=== PATIENT | female | born 1945 | race Caucasian/White ===

== ENCOUNTER → 2017-04-23 13:51 | Outpatient (CLI) | payer MEDICARE, SELFPAY | PROVIDERS: Family Provider Internal Medicine; PCP Internal Medicine; Visit Provider Internal Medicine | DX: R55 Syncope and collapse (principal) | CPT/HCPCS: 93225; 93226 ==

== ENCOUNTER → 2017-04-30 13:46 | Outpatient (CLI) | payer MEDICARE, SELFPAY ==
--- NOTE | 2017-04-30 13:49 | CT_ITS ---
STUDY: CT BRAIN WITHOUT CONTRAST REASON FOR EXAM: Female, 71 years old. Near syncope, light headed after exertion x 2-3 months. Hx hypertension, skin cancer RADIATION DOSAGE (If Supplied By Facility): CTDIvol = ( 60.81 ) mGy, DLP = ( 998.67 ) mGycm TECHNIQUE: Transaxial CT imaging of the brain was performed without administration of intravenous contrast material. COMPARISON: None. FINDINGS: Normal soft tissue structures. Normal calvarium. There are calcifications around the carotid artery. These are noted in the cavernous carotid arteries. There is mild cerebral atrophy with widening of the extra-axial spaces and ventricular dilatation. There are areas of decreased attenuation within the white matter tracts of the supratentorial brain, consistent with microvascular disease changes. Normal basal ganglia and thalami. Normal brainstem. There is mild cerebellar atrophy. There is no intracranial hemorrhage. There are no findings of an acute ischemic infarction. Normal visualized paranasal sinuses. CT/Brain/Head without Contrast IMPRESSION: Chronic involutional changes of the brain. There are no acute findings. Electronically Signed: Juliano Riggs MD at 18:05 EST , Service support ,
== END ==
PROVIDERS: Family Provider Internal Medicine; PCP Internal Medicine; Visit Provider Internal Medicine
DX: R55 Syncope and collapse (principal)
CPT/HCPCS: 70450

== ENCOUNTER → 2017-05-07 12:55 | Outpatient (CLI) | payer MEDICARE, SELFPAY ==
--- NOTE | 2017-05-07 12:59 | CDU_ITS ---
Reason For Study: Near syncope Rt. Velocities/BP Lt. Velocities/BP Prox CCA 89.7/19.3 cm/sec. Prox CCA 89.1/16.4 cm/sec. Mid CCA 79.2/19.9 cm/sec. Mid CCA 75.0/14.1 cm/sec. Dist CCA 73.9/19.9 cm/sec. Dist CCA 69.2/18.8 cm/sec. Prox ICA 65.1/20.5 cm/sec. Prox ICA 70.9/23.5 cm/sec. Mid ICA 64.4/19.7 cm/sec. Mid ICA 57.2/20.1 cm/sec. Dist ICA 51.3/16.7 cm/sec. Dist ICA 69.4/20.1 cm/sec. Rt. ICA/CCA = .82. Lt. ICA/CCA = .95. Prox ECA 47.3/8.8 cm/sec. Prox ECA 62.4/11.4 cm/sec. Rt. Vert. 53.9/17.0 cm/sec. Lt. Vert. 51.0/17.0 cm/sec. Right Extracranial There is intimal thickening but no significant atherosclerotic plaque noted in the right common carotid artery. There is no significant atherosclerotic plaque noted in the right internal carotid artery. There is no significant atherosclerotic plaque noted in the right external carotid artery. Antegrade flow is noted in the right vertebral artery. Left Extracranial There is intimal thickening but no significant atherosclerotic plaque noted in the left common carotid artery. There is no significant atherosclerotic plaque noted in the left internal carotid artery. There is no significant atherosclerotic plaque noted in the left external carotid artery. Antegrade flow is noted in the left vertebral artery. Procedure Carotid Duplex [id number]. Exam performed in department. Interpretation Summary Mild (<50%) stenosis right extracranial internal carotid. Mild (<50%) stenosis left extracranial internal carotid. Flow within the vertebral arteries is antegrade bilaterally. Ordering Physician: Radha Dent Referring Physician: Radha Dent Performed By: Almaz Orr RVT
--- NOTE | 2017-05-07 12:59 | ECHOD_ITS ---
Reason For Study: syncope Procedure This was a 2D Doppler, Color Flow transthoracic echocardiogram. Exam performed in department. Left Ventricle Normal size and thickness. The estimated ejection fraction is 65 %. Stage 1 diastolic dysfunction. No regional wall motion abnormalities noted. Right Ventricle Normal size and thickness. Normal systolic function. Atria Normal left atrium. Normal right atrium. Normal atrial septum. Mitral Valve The mitral valve is structurally normal. No prolapse or stenosis seen. Tricuspid Valve Normal tricuspid valve. Trivial tricuspid valve insufficiency. Unable to estimate RV systolic pressure/pulmonary artery pressure due to technically difficult study. Aortic Valve Normal aortic valve. Trisinus/trileaflet aortic valve. Pulmonic Valve Normal pulmonic valve. Great Vessels Normal aortic root. Mild atherosclerosis of the aortic arch. Normal inferior vena cava. Inferior vena cava collapse with sniff. Pericardium/Pleural No pericardial effusion. MMode/2D Measurements & Calculations LVIDd: 4.6 cm IVSd: 0.88 cm Ao root diam: 2.9 cm LVIDs: 3.3 cm LVPWd: 1.1 cm LA dimension: 3.7 cm RVDd: 2.6 cm FS: 27.8 % LAV(MOD-bp): 48.9 ml LA A4 area: 16.2 cm2 RA A4 area: 9.5 cm2 LAV(MOD-bp) Indexed: 28.5 ml/m2 LAV(MOD-sp2): 51.4 ml LAV(MOD-sp4): 45.9 ml Doppler Measurements & Calculations MV E max marco a: 55.8 cm/sec Lat Peak E' Marco A: 6.3 cm/sec Med Peak E' Marco A: 6.3 cm/sec MV A max marco a: 102.3 cm/sec E/E' lat: 8.9 E/E' med: 8.9 MV E/A: 0.55 Ao V2 max: 108.8 cm/sec LV V1 max: 76.3 cm/sec PA V2 max: 95.0 cm/sec Ao max P.7 mmHg LV V1 max P.3 mmHg Interpretation Summary The estimated ejection fraction is 65 %. Stage 1 diastolic dysfunction. Unable to estimate RV systolic pressure/pulmonary artery pressure due to technically difficult study. Compared to echo report dated 12/28/2015, LV function has remained the same. RVSP found to be 46 mm Hg at that time. Ordering Physician: Radha Dent Referring Physician: Radha Dent Performed By: Johanne Cleveland, ARI, RVT
== END ==
PROVIDERS: Family Provider Internal Medicine; PCP Internal Medicine; Visit Provider Internal Medicine
DX: R55 Syncope and collapse (principal); R07.9 Chest pain, unspecified
CPT/HCPCS: 93306; 93880

== ENCOUNTER → 2017-05-09 06:38 | Outpatient (CLI) | payer MEDICARE, SELFPAY ==
--- NOTE | 2017-05-09 10:01 | STRESSREP ---
Stress Test Report Pharmacologic myocardial perfusion stress test. 71-year-old lady with a history of chest pain. Medications enalapril Synthroid furosemide. Stress protocol: Resting EKG demonstrates sinus rhythm with a rate of 86 bpm. Resting blood pressure is 128/70. 0.4 mg of regadenoson was infused per usual protocol followed by rapid intravenous saline flush injection. Continuous EKG monitoring was performed. Patient maintained sinus rhythm throughout the recording. The maximum heart rate attained was 96 bpm which was 64% maximum predicted heart rate maximum workload attained was [address] or T-wave changes were noted suggest abnormal flow reserve. Myocardial perfusion protocol. 14.1 mCi of technetium 99m sestamibi was injected at rest. 0.4 mg of regadenoson was infused per usual protocol. Peak infusion 43.4 mCi of technetium 99m sestamibi was injected stress images were obtained stress and rest images were reconstructed and compared in the short axis vertical long horizontal long axis. Gated images were also obtained. Perfusion SPECT analysis: Review of the stress images demonstrate normal uptake of tracer noted in all areas of the myocardium. The resting images similarly demonstrate normal uptake of tracer noted in all areas myocardium. No areas of reversibility are noted suggest ischemia. Gated SPECT analysis: The gated ejection fraction is 78%. Conclusion: Normal pharmacologic myocardial perfusion stress test. Preserved ejection fraction.
== END ==
PROVIDERS: Family Provider Internal Medicine; PCP Internal Medicine; Visit Provider Internal Medicine
DX: R07.9 Chest pain, unspecified (principal); R55 Syncope and collapse
CPT/HCPCS: 78452; 93017; A9500; A4216; J2785

== ENCOUNTER → 2017-05-13 14:15 | Outpatient (CLI) | payer MEDICARE, SELFPAY ==
--- NOTE | 2017-05-13 14:16 | HPBI_ITS ---
MAMMOGRAPHY - BILATERAL SCREENING REASON FOR EXAM: Female, 71 years old. Routine annual screening examination. PERTINENT HISTORY: Mother with breast cancer. Bilateral breast reduction surgery. TECHNIQUE: Digital bilateral breast jennie (3D mammographic acquisition) in the CC and MLO projections. 2-D mediolateral oblique (MLO) and craniocaudad (CC) views of both breasts were obtained. CAD: Full Field Digital Mammography with Computer Added Detection was performed. COMPARISON: Comparison is made with prior study dated April 25, 2015 and July 20, 2013. FINDINGS: Breast Composition: The breasts are almost entirely fatty. There are no dominant masses or suspicious calcifications. No other significant abnormalities are identified. There has been no significant change since the prior study. HPBI/SCREENING MAMM (CAD), BILAT IMPRESSION: Stable bilateral screening mammogram. Yearly follow-up mammogram recommended. (A) ASSESSMENT CATEGORY: BIRADS Category 1: Negative. A letter regarding these results will be sent to the patient by the facility within 30 days. Approximately 10% of breast cancers are not detected by mammography. A normal mammogram should not delay biopsy of a clinically suspicious abnormality. [id number] Electronically Signed: Danny Manrique MD at 15:12 EDT Tel [phone], Service support ,
== END ==
PROVIDERS: Family Provider Internal Medicine; PCP Internal Medicine; Visit Provider Internal Medicine
DX: Z12.31 Encounter for screening mammogram for malignant neoplasm of breast (principal)
CPT/HCPCS: 77063; 77067

== ENCOUNTER → 2018-05-26 13:55 | Outpatient (CLI) | payer MEDICARE, SELFPAY ==
[2018-02-04 13:37] VITALS: BMI 32.8
--- NOTE | 2018-05-26 13:58 | CDU_ITS ---
Reason For Study: Carotid stenosis Rt. Velocities/BP Lt. Velocities/BP Prox CCA 79.7/18.2 cm/sec. Prox CCA 99.1/19.3 cm/sec. Mid CCA 87.4/22.9 cm/sec. Mid CCA 78.0/17.0 cm/sec. Dist CCA 68.0/14.7 cm/sec. Dist CCA 83.8/21.7 cm/sec. Prox ICA 65.1/15.2 cm/sec. Prox ICA 66.3/15.8 cm/sec. Mid ICA 71.2/23.3 cm/sec. Mid ICA 56.1/19.6 cm/sec. Dist ICA 66.6/18.0 cm/sec. Dist ICA 67.7/23.2 cm/sec. Rt. ICA/CCA = .81. Lt. ICA/CCA = .87. Prox ECA 75.0/17.6 cm/sec. Prox ECA 53.0/10.5 cm/sec. Rt. Vert. 55.7/13.5 cm/sec. Lt. Vert. 54.5/17.0 cm/sec. Right Extracranial There is intimal thickening but no significant atherosclerotic plaque noted in the right common carotid artery. There is intimal thickening but no significant atherosclerotic plaque noted in the right internal carotid artery. There is intimal thickening but no significant atherosclerotic plaque noted in the right external carotid artery. Antegrade flow is noted in the right vertebral artery. Left Extracranial There is intimal thickening but no significant atherosclerotic plaque noted in the left common carotid artery. There is intimal thickening but no significant atherosclerotic plaque noted in the left internal carotid artery. There is no significant atherosclerotic plaque noted in the left external carotid artery. Antegrade flow is noted in the left vertebral artery. Procedure Carotid Duplex [id number]. Exam performed in department. Interpretation Summary Mild (<50%) stenosis right extracranial internal carotid. Mild (<50%) stenosis left extracranial internal carotid. Flow within the vertebral arteries is antegrade bilaterally. Ordering Physician: Sol Riojas Referring Physician: Sol Riojas Performed By: Almaz Orr RVT
--- NOTE | 2018-05-26 14:48 | BD_ITS ---
STUDY: DUAL ENERGY X-RAY ABSORPTIOMETRY / DXA REASON FOR EXAM: Female, 72 years old. The patient is postmenopausal. Loss of height. TECHNIQUE: Bone Mineral Density (BMD) measurements of lumbar spine and bilateral hips were obtained. COMPARISON: Comparison is made with prior study dated July 16, 2011. FINDINGS: Lumbar Spine (L1-L4): g/cm2 (1.185) / T-score (0.0) / Z-score (1.8) Findings are suggestive of normal bone density with a low fracture risk. Increased kyphosis. Left Femur Total: g/cm2 (0.929) / T-score (-0.6) / Z-score (1.0) Left Femoral Neck: g/cm2 (0.783) / T-score (-1.8) / Z-score (0.0) Right Femur Total: g/cm2 (0.920) / T-score (-0.7) / Z-score (1.0) Right Femoral Neck: g/cm2 (0.781) / T-score (-1.9) / Z-score (0.0) The T-Scores on the most recent prior examination were: Lumbar Spine (L1-L4): There has been worsening of bone density since the previous examination. Left Femur Total: which represents a worsening of 8.7%. Right Femur Total: which represents a worsening of 3.5%. BD/Dexa Bone Density Study IMPRESSION: The patient is considered osteopenic as outlined below according to World [place] Organization (WHO) criteria with a moderate fracture risk. There has been worsening of bone density since the previous examination. Reference Information: The T-score is the number of standard deviations above or below the standard which is normal for young adults at their peak bone mineral density. The World Health Organization (WHO) interprets the T-scores as follows: Above -1 Normal bone density Between -1 and -2.5 Osteopenia Equal to / or below -2.5 Osteoporosis As a practical clinical guideline, osteopenia may be graded as follows: Mild -1 through -1.5 Moderate -1.6 through -2.0 Severe -2.1 through -2.4 The Z-score is the number of standard deviations above or below age-matched controls. A Z-score of less than -1.5 would be considered abnormal. References: 1. NIH Osteoporosis and Related Bone Diseases http://www.osteo.org 2. International Society for Clinical Densitometry http://www.iscd.org 3. National Osteoporosis Foundation http://www.nof.org Electronically Signed: Danny Manrique, at 15:42 EDT , Service support ,
== END ==
PROVIDERS: Family Provider Internal Medicine; PCP Internal Medicine; Referring Provider Internal Medicine; Visit Provider Internal Medicine
DX: I65.23 Occlusion and stenosis of bilateral carotid arteries (principal); Z78.0 Asymptomatic menopausal state
CPT/HCPCS: 77080; 93880

== ENCOUNTER → 2018-06-11 11:56 | Outpatient (CLI) | payer MEDICARE, SELFPAY ==
[2018-02-04 13:37] VITALS: BMI 32.8
--- NOTE | 2018-06-11 11:58 | BI_ITS ---
MAMMOGRAPHY - BILATERAL SCREENING REASON FOR EXAM: Female, 73 years old. Routine annual screening examination. PERTINENT HISTORY: Mother with breast cancer. TECHNIQUE: Digital bilateral breast jennie (3D mammographic acquisition) in the CC and MLO projections. 2-D mediolateral oblique (MLO) and craniocaudad (CC) views of both breasts were obtained. CAD: Full Field Digital Mammography with Computer Added Detection was performed. COMPARISON: Comparison is made with prior study May 13, 2017 and April 25, 2015. FINDINGS: Breast Composition: The breasts are almost entirely fatty. There are no dominant masses or suspicious calcifications. No other significant abnormalities are identified. There has been no significant change since the prior study. BI/SCREENING MAMM (CAD), BILAT IMPRESSION: Stable bilateral screening mammogram. Yearly follow-up mammogram recommended. (A) ASSESSMENT CATEGORY: BIRADS Category 1: Negative. A letter regarding these results will be sent to the patient by the facility within 30 days. Approximately 10% of breast cancers are not detected by mammography. A normal mammogram should not delay biopsy of a clinically suspicious abnormality. [id number] Electronically Signed: Danny Manrique, at 14:34 EDT , Service support ,
== END ==
PROVIDERS: Family Provider Internal Medicine; PCP Internal Medicine; Referring Provider Internal Medicine; Visit Provider Internal Medicine
DX: Z12.31 Encounter for screening mammogram for malignant neoplasm of breast (principal)
CPT/HCPCS: 77063; 77067

== ENCOUNTER → 2018-07-01 15:47 | Outpatient (CLI) | payer MEDICARE, SELFPAY ==
[2018-02-04 13:37] VITALS: BMI 32.8
--- NOTE | 2018-07-01 15:52 | RAD_ITS ---
STUDY: X-RAY - SKULL REASON FOR EXAM: Female, 73 years old. Patient fell hitting head. Bruising. TECHNIQUE: 5 view(s) of the skull were obtained. COMPARISON: None. FINDINGS: There is no demonstrated soft tissue swelling. Normal osseous calvarium. There is no demonstrated calvarial fracture. Normal visualized facial bones. Normal visualized paranasal sinuses. RAD/Skull less than 4 Views IMPRESSION: Normal x-ray examination of the skull. Electronically Signed: Timmy Carmona MD at 16:20 EDT , Service support ,
== END ==
PROVIDERS: Family Provider Internal Medicine; PCP Internal Medicine; Referring Provider Internal Medicine; Visit Provider Internal Medicine
DX: S09.90XA Unspecified injury of head, initial encounter (principal)
CPT/HCPCS: 70250

== ENCOUNTER 2018-08-05 07:24 | Day surgery (SDC) | payer MEDICARE, SELFPAY ==
[2018-02-04 13:37] VITALS: BMI 32.8
[2018-08-05 08:01] VITALS: BP 137/95; PULSE 79; RESP 16; TEMP 36.7; O2SAT 98; BMI 30.7
--- NOTE | 2018-08-05 09:02 | HP.PCM_ITS ---
History of Present Illness Date of Admission: 08/05/18 The patient is a 73 year old F presents for screening colonoscopy. Her last colonoscopy was in 2006 in [facility] and was negative per her report Past Medical/Surgical History - Planned Operation Planned Operative Procedure/s: COLONOSCOPY Date of Operative Procedure: 08/05/18 Permit Signed: Yes S.O.S: No Is This Patient Having a Total Joint: No - Previous Hospitalizations/Surgeries HX Hospitalizations: No HX of Surgeries: HYSTERECTOMY. GALLBLADDER. SINUS SURGERY. L& R KNEE ARTHROSCOPY. SELENA BREAST REDUCTION. APPENDECTOMY. HERNIA Any Problems With Anesthesia: No You/Your Family Experience Fever (Hyperthermia) With Anes: No Cholinesterase deficiency: No - Cardiovascular Hx Chest Pain within Last 2 months: No Hx of Irregular Heartbeat and/or Afib: No Hx Heart Attack: No Hx Congestive Heart Failure: No Hx Rheumatic Fever: No Hx Hypertension: Yes - ON MEDS, CONTROLLED Hx Internal Defibrillator: No Hx Pacemaker: No Hx Cardiac Catheterization: Yes - 50% BLOCKAGE, [facility] 2013 What facility was last heart cath performed: [facility] Date of last Heart Cath: 2013 Hx Cardiac Surgery/Stents/Etc.: No Hx Stress Test: Yes - 05/18, ECHO 05/18 HX Edema: No Hx Pain in Legs when Walking/Leg Cramps: Yes - PAIN IN KNEES - Respiratory Chronic Cough: No HX of Shortness of Breath: No Hoarseness: No Hx Chronic Obstructive Pulmonary Disease (COPD): No Hx Asthma: No Hx Emphysema: Yes - HAS PULMONARY HYPERTENSION Hx Sleep Apnea: No Hx Oxygen Use at Home: No Hx Respiratory Tract Infection/Cold (presently): No Do You Snore Loudly (louder than talking or can be heard): No Do You Often Feel Tired/ Fatigued/ Sleepy Dring Daytime?: No Has Anyone Observed You Stop Breathing During Sleep?: No Result (for STOP score): Negative Hx Smoking: No Smoking Status: Never smoker - Gastrointestinal Hx Gastroesophageal Reflux: Yes Controlled With Meds: Yes Hx Gastrointestinal Disorders: No Hx Gastrointestinal Bleed: No Hx Ulcer: No Hx Hiatal Hernia: No Difficulty Chewing/Swallowing: No Recent Onset of Swallowing Problems: No Special diet followed at home: No Hx Unplanned Weight Loss of 20#: No HX Unplanned Weight Gain of 20#: No - Neurological Hx Seizures: No HX Syncope/Blackout Spells/Unconsciousness: No Hx CVA/Stroke: No Hx Transient Ischemic Attacks (TIA): No Hx Multiple Sclerosis: No Hx Parkinson's Disease: No Hx Head/Neck Injury: No Hx Headaches: Yes Hx Back Injury/Pain: Yes Recent Onset of Speech Difficulty: No Restless Legs: No Does patient have nerve stimulator: No - Blood Disorder Hx Leukemia: No Bleeding Tendencies: Yes Hx Deep Vein Thrombosis: No Hx High Cholesterol: Yes - HYPERLIPIDEMIA Blood Transmitted Disease: No Hx Hepatitis: No Hx Cirrhosis: No Hx Anemia: No Hx Blood Disorders: No - Reproduction : No Is Patient Lactating: No Hx Hysterectomy: Yes Hx Tubal Ligation: No Are You Post Menopause: No - Genitourinary Hx Renal Disease: No - Musculoskeletal Hx Arthritis: Yes Hx Rheumatoid Arthritis: No Hx Gout: No Recent Onset of an Orthopedic Problem: No - Endocrine Hx Diabetes: No Thyroid Disease: Yes - ON MED Hx Steroid Therapy: No - Psycho/Social Hx Substance Use: No Hx Alcohol Use: Yes - SOCIAL Hx Anxiety: Yes Hx Depression: Yes Mental Illness: No Hx Dementia: No - Miscellaneous Hx Cancer: Yes - SKIN Recent Exposure to Contagious Disease: No Active MRSA: No Hx of C-Diff: No Any Loose Teeth: No Allergies ezetimibe [From Vytorin] Allergy (Verified 08/03/18 11:49) Other pravastatin sodium [From Pravachol] Allergy (Verified 08/03/18 11:49) Other simvastatin [From Vytorin] Allergy (Verified 08/03/18 11:49) Other - Discharge Is Pt Admitted From a Group Home, or a Halfway: No Who Could Help: FRIEND After D/C, Where Do you Plan to Go: Return Home - From the PAT History Number of Risk Factors: 8 - Physical Exam General: Alert, Oriented x3 HEENT: Atraumatic, PERRLA, EOMI, Normocephalic Oral: Moist Mucosa Neck: Supple, No JVD Lungs: Clear to auscultation Cardiovascular: Regular rate, Regular Rhythm, No murmurs Abdomen: Bowel Sounds Present, Soft, Non Tender, Non-Distended Extremities: No clubbing, No cyanosis, No edema Skin: No rashes, No breakdown Musculoskeletal: No Tenderness to Palpation of Joints or Extremities Lymphatic: No Cervical, Supraclavicular, or Inguinal Adenopathy Neurological: Cranial nerves II-XII grossly intact Psych/Mental Status: Normal Affect, Appropriate Vital Signs Temp Pulse Resp BP Pulse Ox 98.1 F 79 16 137/95 H 98 08/05/18 08:01 08/05/18 08:01 08/05/18 08:01 08/05/18 08:01 08/05/18 08:01 Oxygen Delivery Method Room Air Weight: 157 lb 6.561 oz Body Mass Index (BMI) 30.7 Assessment/Plan All Active Problems (Last Reviewed 02/04/18 @ 13:55 by Beth Yost NP-C) History of lateral meniscus repair of right knee (Resolved) History of cholecystectomy (Resolved) History of hernia repair (Resolved) History of left knee surgery (Resolved) History of bilateral breast reduction surgery (Resolved) History of appendectomy (Resolved) History of hysterectomy (Resolved) Plan will be to perform a colonoscopy. Surgery Risks - Colonoscopy Risks Include but are not Limited To: Risks include but are not limited to: Bleeding, perforation requiring further surgery, inability to complete colonoscopy requiring barium enema.
[2018-08-05 09:25] VITALS: BP 109/71; BP 137/95; PULSE 73; RESP 18; TEMP 36.8; O2SAT 100
[2018-08-05 09:30] VITALS: BP 123/79; BP 137/95; PULSE 71; RESP 18; O2SAT 100
--- NOTE | 2018-08-05 09:30 | OP.ENDO_ITS ---
08/05/2018 Radha Dent [address] [place] [address] Re : Colonoscopy procedure for Kelly Arreola Dear Dr. Dent This procedure was performed on Sunday, August 05, 2018. My impressions and recommendations are as follows: Impressions : - Diverticulosis in the sigmoid colon. No specimens collected. - Non-bleeding external and internal hemorrhoids. - The examination was otherwise normal. Recommendations : - Discharge patient to home. - Resume previous diet. - Continue present medications. - Repeat colonoscopy in 10 years for screening purposes. - Return to referring physician in 1 week. My findings are described in the full procedure note, which is enclosed. If I can be of further assistance, please feel free to contact me at Doctor phone number(s): , Fax: [phone], Work: . Sincerely, MD Miguel A Padilla MD 08/05/2018 9:29:59 AM This report has been signed electronically.
[2018-08-05 09:35] VITALS: BP 133/68; BP 137/95; PULSE 71; RESP 18; O2SAT 99
[2018-08-05 09:40] VITALS: BP 133/75; BP 137/95; PULSE 69; RESP 18; TEMP 36.7; O2SAT 100
[2018-08-05 09:43] VITALS: BP 137/95
== END 2018-08-05 10:20 | disposition home or self-care (01) ==
LOC: EN 07:26 → AC 07:26
PROVIDERS: Family Provider Internal Medicine; PCP Internal Medicine; Referring Provider Internal Medicine; Visit Provider Surgery
PROC: 0DJD8ZZ Inspection of Lower Intestinal Tract, Via Natural or Artificial Opening Endoscopic (ICD-10-PCS; CPT 45378; principal; 2018-08-05 08:25)
DX: Z12.11 Encounter for screening for malignant neoplasm of colon (principal); K64.8 Other hemorrhoids; K64.4 Residual hemorrhoidal skin tags; K57.30 Diverticulosis of large intestine without perforation or abscess without bleeding; I10 Essential (primary) hypertension; I27.20 Pulmonary hypertension, unspecified; J43.9 Emphysema, unspecified; K21.9 Gastro-esophageal reflux disease without esophagitis; E78.5 Hyperlipidemia, unspecified
CPT/HCPCS: G0121; J7120

== ENCOUNTER → 2019-07-21 14:19 | Outpatient (CLI) | payer MEDICARE, SELFPAY ==
--- NOTE | 2019-07-21 14:42 | CT_ITS ---
STUDY: RIGHT KNEE CT SCAN REASON FOR EXAM: Female, 74 years old. Right knee varus deformity, surgical planning for Makoplasty. Prior meniscus repair. [facility] scanning protocol. RADIATION DOSAGE (If Supplied By Facility): CTDIvol = ( 30.70 ) mGy, DLP = ( 2053.81 ) mGycm. Individualized dose optimization techniques were used for this CT.? TECHNIQUE: Axial multidetector CT scan of the right knee. Coronal and sagittal reformatted images. [facility] protocol with additional imaging of the right hip and ankle. COMPARISON: X-ray dated June 09, 2015 and September 12, 2014. FINDINGS: KNEE: Moderate lateral compartment osteoarthritis. Mild medial compartment osteoarthritis. Mild/moderate patellofemoral osteoarthritis. Multiple osteophytes. Normal proximal tibiofibular articulation. No acute fracture. No dislocation. No bone destruction. Moderate volume joint effusion. Tiny popliteal cyst. Mild soft tissue swelling. HIP: Mild hip osteoporosis. Spurring at the greater trochanter. Moderate pubic symphysis arthrosis. No acute fracture. No dislocation. No bone destruction. Hernia mesh repair. Visualized intra-abdominal/pelvic contents within normal limits. Hysterectomy. ANKLE: Plantar spur. Achilles enthesophyte. Minimal tibiotalar joint arthrosis. Normal subtalar joint. Normal talonavicular joint. Normal calcaneocuboid joint. Normal navicular cuneiform joints. No acute fracture. No dislocation. No bone destruction. CT/Extremity Lower without Contra IMPRESSION: Mild/moderate tricompartmental right knee osteoarthritis Right knee moderate joint effusion, tiny popliteal cyst and mild swelling Mild right hip osteoarthritis Achilles enthesophyte and plantar spur with minimal tibiotalar arthrosis Electronically Signed: Juaquin Sampson DO at 8:29 EDT Tel , Service support ,
== END ==
PROVIDERS: PCP Internal Medicine; Referring Provider Specialist; Visit Provider Specialist
DX: M21.161 Varus deformity, not elsewhere classified, right knee (principal)
CPT/HCPCS: 73700; 93005

== ENCOUNTER → 2019-07-29 16:30 | Outpatient (CLI) | payer MEDICARE, SELFPAY ==
--- NOTE | 2019-07-21 11:47 | PCM.HP.BLA ---
History and Physical History and Physical [facility] Patient Name: Kelly Arreola : 1945 From: AYAAN FRANKEL PA-C DATE OF SURGERY: 08/04/2019 SCHEDULED PROCEDURE: right total knee arthroplasty HISTORY OF PRESENT ILLNESS: Preoperative history and physical exam was performed on July 21, 2019. This is a 74-year-old female who has been having ongoing pain in her right knee for several years. Patient states her pain is intermittent and aching. She is complaining of pain over the lateral aspect of the right knee. Patient has had multiple Euflexxa injections in the past. Patient does have start up pain. Pain is increased with going up and down stairs. Pain occasionally wakes her at night. She has been using meloxicam with temporary relief. She has tried rest, elevation, cortisone injection, and gel injection with only temporary relief. There's been no trauma or injury. She has had previous surgery on the right knee for a torn meniscus approximately 3 years ago. After failing conservative measures and discussing treatment options with Dr. Barrie You the patient does wish to proceed with a right total knee arthroplasty. Patient currently denies any chest pain, shortness of breath, fevers chills, or Infections. She has medical history pertinent for hypertension, thyroid disease, pulmonary hypertension, gastroesophageal reflux disease, COPD. She has had a previous heart In 2015 which was normal per patient and never had to follow back with the application software engineer. We are obtaining surgical clearance from patient's primary care physician Dr. Dent. REVIEW OF SYSTEMS: ROS: Const: Reports anxiety and hard of hearing, but denies anorexia, change in appetite, fever, vision problems and weight change. CV: Denies chest pain, heart murmur, irregular heartbeat and peripheral vascular disease. Resp: Reports pneumonia, but denies asthma, cough, sleep apnea, SOB, tuberculosis and wheezing. GI: Denies constipation, diarrhea, difficulty swallowing, heartburn, bloody stools and vomiting. : Urinary: denies incontinence. Musculo: Denies leg swelling, limp, trouble walking and weakness. Skin: Reports history of shingles, but denies Raynaud's and tattoo. Neuro: Denies ambulatory dysfunction, dizziness, numbness/tingling and tremor. Psych: Reports anxiety and depression, but denies insomnia, mental illness and stress. Brigido/Lymph: Reports bleeding/bruising tendency and past transfusion, but denies anemia. Reviewed, no changes. PAST MEDICAL HISTORY: Advance Care Plan: Other Directive, POA Effective Date: 09/20/2015 Other Directive, LIVING WILL Effective Date: 09/20/2015 PMH: Medical Problems: Arthritis, High Blood Pressure, Thyroid Disease, Hypercholesterolemia, Pulmonary Hypertension, GERD, Emphysema/COPD Accidents: Fracture - (1979) LT FOOT LT FOOT-2015 Surgical Hx: Gallbladder - (03/31/2014) Hernia Repair Hysterectomy - (1992) Tubal Ligation - (1974) Knee Arthroscopy LT - (2007) Heart Cath - (2014) RT Knee Arthroscopy - (11/24/2014) JW @ [facility] Anesthesia Complications: None Assistive Devices: Glasses - Reading & driving, Hearing Aid Reviewed and updated. SOCIAL HISTORY: SH: Marital: .Occupation: Not Currently Working.Work Status: Retired.Hand Dominance: Right-handed. Personal Habits: Smoking: Patient has never smoked.Cigarette Use: Never Smoked Cigarettes.Alcohol: Weekly use.Drug Use: Denies Use.Enjoy Exercising: Exercises 1-3 X/Week. Reviewed, no changes. VITALS: Ht: 60 Wt: 153lb Wt k.401 BMI: 29.9 BP: 156/98 Pulse: 86 Resp: 12 T: 97.5 T: 36.4C ALLERGIES: Bactrim MEDICATIONS: Meloxicam 15 mg take 1 tablet by mouth once daily, Enalapril Maleate 20 mg bid, Furosemide 40 mg/4ml daily, Montelukast Sodium 10 mg 1 by mouth every day, Synthroid 75 mcg daily, Buspirone HCL 7.5 mg 1 tab PO tid, Vitamin D3 500 Units 1 tab PO daily, Vitamin B-12 1000mcg 1 tab PO daily, Esomeprazole Magnesium 40 mg one PO daily, Duloxetine HCL 60 mg 1 by mouth every day, Singulair 10 mg 1 by mouth every day, Nasonex 50 mcg/Act spray in each nostril prn, Vitamin C 1 po qd PRE-OP EXAM: General appearance:NORMAL Other: Eyes: Conjunctivae and lids: NORMAL Pupils: ERR Ears, Nose, Mouth, and Throat: NORMAL Other: Inspection of lips, teeth and gums: NORMAL Other: Neck: Examination of neck: no masses noted. Respiratory: Assessment of respiratory effort: NORMAL Other: Auscultation of lungs: clear to auscultation no wheezes, rhonchi or rales. Cardiovascular: Auscultation of heart: regular rate and rhythm, no murmurs, gallops or rubs. Exam of carotid arteries: NORMAL Other: Gastrointestinal: Exam of abdomen: soft, nontender, nondistended bowel sounds present. PHYSICAL EXAMINATION: Patient walks with an antalgic gait. Right knee is cool to touch without erythema or signs of infection. He has tenderness to palpation over the right knee at the lateral joint line. Patient has valgus deformity which is correctable on exam. Range of motion right knee: 0 extension 125 flexion with increased pain. IMAGING STUDIES: X-rays of the right knee reveal valgus alignment with lateral joint space narrowing, subchondral sclerosis, osteophyte formation consistent with severe stage IV tricompartmental osteoarthritis. IMPRESSION: 1. Severe right knee tricompartmental osteoarthritis 2. Hypertension 3. Thyroid disease 4. Hypercholesterolemia 5. Coronary hypertension 6. Gastroesophageal reflux disease 7. Emphysema/COPD 8. History of heart 2015 PLAN: Dr. Barrie You did discuss and review with the patient all treatment options including surgical versus nonsurgical options. Patient does wish to proceed with the above-stated procedure. Potential risks, benefits, and complications of the procedure were discussed in detail including but not limited to , infection, nerve and blood vessel damage, persistent pain, numbness, tingling, paresthesias, blood clot, pulmonary embolism, and requirement for possible further surgery. The patient expressed full understanding and has no further questions for the doctor. Patient does agree to proceed with the above-stated procedure and has signed the surgery consent form. We discussed the current risks associated with COVID 19. This does include the risk of exposure while in the hospital. Patient was reassured local hospitals have low infection rates and are taking all necessary precautions to avoid exposure to patients. In addition, we discussed strategies that can be used to help limit exposure including those that limit the patient's time in the hospital. Also using strategies to limit the patient's need for continued inpatient services after being discharged from the hospital. Patient was notified that we will need to comply with any screening or testing the hospital wishes to perform or that surgery may be delayed for any positive results. This dictation was created using voice recognition software. Phonetic and/or grammatical errors may exist. ___ I have re-examined the patient. There are no clinical changes since date of exam. ___ See progress notes for changes. ___ Dictated on admission Date: Time: Signature:
--- NOTE | 2019-07-21 14:29 | EKG12_ITS ---
Test Reason : PRE OP Blood Pressure : / mmHG Vent. Rate : 090 BPM Atrial Rate : 090 BPM P-R Int : 166 ms QRS Dur : 080 ms QT Int : 362 ms P-R-T Axes : 025 -01 016 degrees QTc Int : 442 ms Normal sinus rhythm Normal ECG Confirmed by BREE LINDSAY, JOANNE ([id number]), editorial assistant [place] ([id number]) on 07/27/2019 2:51:36 PM Referred By: Barrie You Confirmed By:JOANNE GIRON MD
[2019-07-21 14:33] LABS: Absolute Lymphocyte Count 1.64 X10^3/uL (0.83-4.51); Absolute Neutrophil Count 4.3 X10^3/uL (2.0-7.7); Basophil# 0.05 X10^3/uL; Basophil% 0.7 % (0-1); Eosinophil# 0.21 X10^3/uL; Hematocrit 37.4 % (37-47); Hemoglobin 11.8 g/dL (12.0-15.0); Lymphocyte # 1.64 X10^3/ul (4.0); Lymphocyte % 23.4 % (19-41); Mean Corp Hgb Conc 31.6 g/dL (32-36); Mean Corpuscular Volume 88.6 fL (81-99); Mean Platelet Vol. 10.2 fl (6.2-12.0); Monocyte% 11.4 % (0-10); NRBC Flagged by Analyzer 0 % (0-5); Neutrophil # 4.29 X10^3/uL (2.7-7.7); Neutrophil % 61.4 % (47-70); Platelet Count 360 K/mm3 (150-450); RBC Distribution Width CV 16.4 % (11.6-14.6); RBC Distribution Width SD 53.1 fl (35.1-43.9); Red Blood Count 4.22 M/mm3 (4.2-5.4)
[2019-07-21 14:42] LABS: Prothrombin Time (Protime)PT. 12.9 SECONDS (11.7-14.9)
[2019-07-21 14:43] LABS: Partial Thromboplast Time 27.1 Seconds (24.1-36.2)
[2019-07-21 15:09] LABS: AST(SGOT) 14 U/L (15-37); Alanine Aminotransfer ALT/SGPT 22 U/L (13-56); Alkaline Phosphatase 96 U/L (45-117); Bilirubin, Direct 0.11 mg/dL (0.00-0.30); Globulin 3.9 g/dL (2.2-4.2); Protein, Total 7.9 g/dL (6.4-8.2); Thyroid Stim Hormone (TSH) 0.55 uIU/mL (0.358-3.74)
[2019-07-22 09:12] LABS: Anion Gap 7 (5-15); BUN 14 mg/dL (7-18); BUN/Creat Ratio 15.9 RATIO (10-20); Calcium,Total 9.2 mg/dL (8.5-10.1); Chloride 101 mmol/L (98-107); Creatinine, Serum 0.88 mg/dL (0.55-1.02); EST Glomerular Filtration Rate 67 mL/min (>60); Est Glom Filt Rate - Afr Amer 81 mL/min (>60); Glucose 98 mg/dL (74-106); Potassium 3.7 mmol/L (3.5-5.1); Sodium Level 135 mmol/L (136-145)
== END ==
PROVIDERS: Anesthesiology; PCP Internal Medicine; Referring Provider Specialist; Visit Provider Specialist
DX: Z01.818 Encounter for other preprocedural examination (principal)
CPT/HCPCS: 36415; 80048; 80076; 84443; 85025; 85610; 85730; 87081; J7120

== ENCOUNTER → 2019-09-02 | Outpatient (CLI) | payer MEDICARE, SELFPAY ==
[2019-09-02 10:10] VITALS: BMI 30.7
--- NOTE | 2019-09-02 10:17 | RAD_ITS ---
STUDY: X-RAY - PELVIS AND LEFT HIP REASON FOR EXAM: Female, 74 years old. Left hip pain TECHNIQUE: 3 views of the pelvis and hip. COMPARISON: None. FINDINGS: There is a non-specific bowel gas pattern. Evidence of prior hernia repair in the right lower quadrant. Surgical anastomosis is seen in the pelvis. Normal bilateral iliac wings, sacroiliac joints and visualized sacrum. Normal bilateral superior and inferior pubic rami. There are degenerative changes of the pubic symphysis with articular narrowing and sclerosis. Normal bilateral ischial tuberosities. Normal visualized femoral head. Normal acetabulum. There is mild articular joint space narrowing of the hip. Disc space narrowing and spondylosis of the visualized lower lumbar spine. RAD/HIP, UNI W/ Pelvis 2-3 Views IMPRESSION: Mild narrowing of the hip joints bilaterally. Electronically Signed: Danny Manrique, at 10:52 EDT , Service support ,
== END | disposition home or self-care (01) ==
PROVIDERS: PCP Internal Medicine; Referring Provider Physician Assistant; Visit Provider Physician Assistant
DX: M25.552 Pain in left hip (principal)
CPT/HCPCS: 73502

== ENCOUNTER → 2019-12-07 | Outpatient (CLI) | payer MEDICARE, SELFPAY ==
[2019-09-02 11:26] VITALS: BMI 30.7
--- NOTE | 2019-12-07 14:21 | BI_ITS ---
MAMMOGRAPHY - BILATERAL SCREENING REASON FOR EXAM: Female, 74 years old. Routine annual screening examination. PERTINENT HISTORY: FAM HX MOTHER AGE 54, MAT COUSINS AGES 44 AND 60, MAT AUNT AG ? LOST 15# FELL 1 MONTH AGO ON RT BREAST=BRUISING-NOW GONE LT MOLE MARKED BILAT REDUCTION 1997, LT ROTATOR CUFF TEAR-LTD ROM ON MLO TECHNIQUE: Digital bilateral breast bret (3D mammographic acquisition) in the CC and MLO projections. 2-D mediolateral oblique (MLO) and craniocaudad (CC) views of both breasts were obtained. CAD: Full Field Digital Mammography with Computer Added Detection was performed. COMPARISON: 06/11/2018 and 05/13/2017 FINDINGS: Breast Composition: The breasts are almost entirely fatty. There are no dominant masses or suspicious calcifications. No other significant abnormalities are identified. BI/SCREEN MAMM (CAD) W/BRET BILAT IMPRESSION: Stable bilateral screening mammogram. Yearly follow-up mammogram recommended. (A) ASSESSMENT CATEGORY: BIRADS Category 2: Benign. A letter regarding these results will be sent to the patient by the facility within 30 days. Approximately 10% of breast cancers are not detected by mammography. A normal mammogram should not delay biopsy of a clinically suspicious abnormality. [id number] Electronically Signed: Will Parks, at 15:19 EDT Tel , Service support ,
== END | disposition home or self-care (01) ==
LOC: OPBD 14:19
PROVIDERS: PCP Internal Medicine; Referring Provider Internal Medicine; Visit Provider Internal Medicine
DX: Z12.31 Encounter for screening mammogram for malignant neoplasm of breast (principal)
CPT/HCPCS: 77063; 77067

== ENCOUNTER → 2020-01-05 15:51 | Outpatient (CLI) | payer MEDICARE, SELFPAY ==
[2019-09-02 11:26] VITALS: BMI 30.7
--- NOTE | 2020-01-05 15:53 | VDLE_ITS ---
Reason For Study: Pain RIGHT GSV is normal. CFV is compressible, spontaneous, phasic, competent and demonstrates normal augmentation. FV is compressible, spontaneous, phasic, competent and demonstrates normal augmentation. POP V is compressible, spontaneous, phasic, competent and demonstrates normal augmentation. T/P Trunk is compressible. PTV is compressible. RT PerV is compressible. Procedure This is a venous duplex using B-mode, color flow and spectral Doppler. Exam performed in department. A preliminary report was called and/or faxed to [facility]. Interpretation Summary Deep veins of the right lower extremity are patent and compressible segmentally. There is no evidence of right lower extremity deep vein thrombosis. Valvular competence appears intact within the proximal deep venous system on the right . The right great saphenous vein appears patent and compressible segmentally. Ordering Physician: Shelton Esparza Referring Physician: Radha Dent M.D. Performed By: Shauna Arreguin RVT
== END ==
PROVIDERS: PCP Internal Medicine; Referring Provider Orthopaedic Surgery; Visit Provider Orthopaedic Surgery
DX: M79.604 Pain in right leg (principal)
CPT/HCPCS: 93971

== ENCOUNTER → 2020-06-20 12:54 | Outpatient (CLI) | payer MEDICARE, SELFPAY ==
[2019-09-02 11:26] VITALS: BMI 30.7
--- NOTE | 2020-06-20 12:57 | CDU_ITS ---
Reason For Study: Stenosis Rt. Velocities/BP Lt. Velocities/BP Prox CCA 79.9/13.4 cm/sec. Prox CCA 124.2/17.3 cm/sec. Mid CCA 73.4/17.3 cm/sec. Mid CCA 72.1/9.5 cm/sec. Dist CCA 72.1/12.1 cm/sec. Dist CCA 77.3/16 cm/sec. Prox ICA 59.1/12.1 cm/sec. Prox ICA 70.8/12.1 cm/sec. Mid ICA 74.7/17.3 cm/sec. Mid ICA 70.8/16 cm/sec. Dist ICA 85.2/26.5 cm/sec. Dist ICA 94.3/25.2 cm/sec. Rt. ICA/CCA = 1.16. Lt. ICA/CCA = 1.22. Prox ECA 74.7 cm/sec. Prox ECA 70.8/9.5 cm/sec. Rt. Vert. 63/13.4 cm/sec. Lt. Vert. 76/16 cm/sec. Right Extracranial There is intimal thickening but no significant atherosclerotic plaque noted in the right common carotid artery. There is intimal thickening but no significant atherosclerotic plaque noted in the right internal carotid artery. There is intimal thickening but no significant atherosclerotic plaque noted in the right external carotid artery. Antegrade flow is noted in the right vertebral artery. Left Extracranial There is intimal thickening but no significant atherosclerotic plaque noted in the left common carotid artery. There is intimal thickening but no significant atherosclerotic plaque noted in the left internal carotid artery. There is intimal thickening but no significant atherosclerotic plaque noted in the left external carotid artery. Antegrade flow is noted in the left vertebral artery. Procedure This is a Carotid Duplex examination using B-mode, color flow and specral Doppler. Carotid Duplex [id number]. Exam performed in department. VL/Carotid Duplex Ultrasound Interpretation Summary Mild (<50%) stenosis right extracranial internal carotid. Mild (<50%) stenosis left extracranial internal carotid. Flow within the vertebral arteries is antegrade bilaterally. Ordering Physician: Radha Dent Referring Physician: Radha Dent Performed By: Shauna Arreguin RVT
--- NOTE | 2020-06-20 14:21 | BD_ITS ---
STUDY: DUAL ENERGY X-RAY ABSORPTIOMETRY / DXA REASON FOR EXAM: Female, 75 years old. Z780 -- POST ROSIBEL. TECHNIQUE: Bone Mineral Density (BMD) measurements of lumbar spine and bilateral hips were obtained. COMPARISON: Comparison is made with prior study dated 05/26/2018. FINDINGS: Lumbar Spine (L1-L4): g/cm2 (1.109) / T-score (-0.5) / Z-score (1.3) Findings are suggestive of normal bone density with a low fracture risk. Increased kyphosis Left Femur Total: g/cm2 (0.922) / T-score (-0.7) / Z-score (1.1) Left Femoral Neck: g/cm2 (0.817) / T-score (-1.6) / Z-score (0.4) Right Femur Total: g/cm2 (0.844) / T-score (-1.3) / Z-score (0.5) Right Femoral Neck: g/cm2 (0.757) / T-score (-2.0) / Z-score (0.1) The T-Scores on the most recent prior examination were: Lumbar Spine (L1-L4): There has been worsening of bone density since the previous examination. Left Femur Total: which represents a worsening of 0.8%. Right Femur Total: which represents a worsening of 8.3%. BD/Dexa Bone Density Study IMPRESSION: The patient is considered osteopenic as outlined below according to World [place] Organization (WHO) criteria with a moderate fracture risk. There has been worsening of bone density since the previous examination. Reference Information: The T-score is the number of standard deviations above or below the standard which is normal for young adults at their peak bone mineral density. The World Health Organization (WHO) interprets the T-scores as follows: Above -1 Normal bone density Between -1 and -2.5 Osteopenia Equal to / or below -2.5 Osteoporosis As a practical clinical guideline, osteopenia may be graded as follows: Mild -1 through -1.5 Moderate -1.6 through -2.0 Severe -2.1 through -2.4 The Z-score is the number of standard deviations above or below age-matched controls. A Z-score of less than -1.5 would be considered abnormal. References: 1. NIH Osteoporosis and Related Bone Diseases www osteo.org 2. International Society for Clinical Densitometry www iscd.org 3. National Osteoporosis Foundation www nof.org Electronically Signed: Danny Manrique MD at 15:48 EDT , Service support ,
== END ==
PROVIDERS: PCP Internal Medicine; Referring Provider Internal Medicine; Visit Provider Internal Medicine
DX: I65.23 Occlusion and stenosis of bilateral carotid arteries (principal); Z78.0 Asymptomatic menopausal state
CPT/HCPCS: 77080; 93880

== ENCOUNTER → 2020-08-09 16:45 | Outpatient (CLI) | payer MEDICARE, SELFPAY ==
[2019-09-02 11:26] VITALS: BMI 30.7
--- NOTE | 2020-08-09 16:50 | CT_ITS ---
EXAM: CT RIGHT LOWER EXTREMITY WITHOUT INTRAVENOUS CONTRAST : 1945 CLINICAL INDICATION: KNEE PAIN TECHNIQUE: Helically acquired images were obtained of the right lower extremity without intravenous contrast. 2-D reformats were performed by the technologist. This CT exam was performed using one or more of the following dose reduction techniques: automated exposure control, adjustment of the mA and/or kV according to patient size, and/or use of iterative reconstruction technique. This report was created using [employer] technology. COMPARISON: None. FINDINGS: BONES/JOINTS: There is narrowing of the lateral knee joint space. There are osteophytes seen on both medial and lateral knee joints. There is a small suprapatellar joint effusion present The hip and ankle joint spaces are maintained. No acute fracture. No subluxation. Normal alignment. No sclerotic or destructive changes. SOFT TISSUES: Unremarkable. No soft tissue swelling or gas. No radiopaque foreign body. CT/Extremity Lower without Contra IMPRESSION: 1. Degenerative changes in the knee with joint space narrowing and osteophyte formation. There is a suprapatellar joint effusion present. 2. No acute osseous abnormalities are identified. Individualized dose optimization techniques were used for this CT. at 1120 Reported and signed by: Gordon Peoples MD Electronically Signed: Gordon Peoples MD at 11:19 EDT Tel , Service support ,
== END ==
PROVIDERS: PCP Internal Medicine; Referring Provider Specialist; Visit Provider Specialist
DX: M21.161 Varus deformity, not elsewhere classified, right knee (principal)
CPT/HCPCS: 73700

== ENCOUNTER → 2020-08-21 17:39 | Outpatient (CLI) | payer MEDICARE, SELFPAY ==
[2019-09-02 11:26] VITALS: BMI 30.7
== END ==
PROVIDERS: PCP Internal Medicine; Referring Provider Internal Medicine; Visit Provider Internal Medicine
DX: D64.9 Anemia, unspecified (principal)
CPT/HCPCS: 36415; 86850; 86900; 86901; 86920; 86922

== ENCOUNTER → 2020-08-22 09:31 | Outpatient (CLI) | payer MEDICARE, SELFPAY ==
[2019-09-02 11:26] VITALS: BMI 30.7
[2020-08-22] VITALS (8 sets, daily range): BP systolic 116–150; BP diastolic 51–67; PULSE 82–99; RESP 16; TEMP 36.2–37; O2SAT 93–98; BMI 30.2
[2020-08-22] MEDS: 0.9% NaCl Peripheral Flush Adult/Peds IV (09:56)
[2020-08-22] MEDS: Furosemide 20 MG/2 ML VIAL IV (12:24)
== END ==
PROVIDERS: PCP Internal Medicine; Referring Provider Internal Medicine; Visit Provider Internal Medicine
DX: D64.9 Anemia, unspecified (principal)
CPT/HCPCS: 36415; 36430; 86850; 86900; 86901; 86920; 86922; J7040; J7050; P9016; A4216; J1940

== ENCOUNTER 2020-09-11 14:00 | Outpatient (RCR) | payer MEDICARE, SELFPAY ==
[2019-09-02 11:26] VITALS: BMI 30.7
--- NOTE | 2020-08-23 15:34 | HP.PTEVAL_ITS ---
Patient's Visit Information ZE ROLAND is a 75 year old F referred to Physical Therapy by Akshat Abreu PA-C with a diagnosis of S/P R TKA 08/15/20. Date of Evaluation: 08/18/20 Physical Therapist: Isabel Henry, PT, Cert MDT - Visit Plan Frequency: 2-3x /Week Duration: 4-6 Weeks Plan: HEAT OR CP NEEDED. GAIT TRAINING WBAT R. R KNEE REHAB FOR S/P R TKR. RIGHT LE ROM, STRETCHING AND STRENGTHENING. - Subjective Work/Leisure: RETIRED. Present symptoms: RIGHT KNEE PAIN. PAIN DOWN RIGHT LEG INTO FOOT TOO. NO BACK OR HIP PAIN. NO NUMBNESS OR TINGLING. Present since: ABOUT 5 YEARS. Pain Scale: WORST 9/10, LEAST 6/10. Currently: 8/10. Commenced as a result of: TORN MENISCUS - NO APPARENT REASON. Symptoms at onset: RIGHT KNEE PAIN. Worse: LAYING TOO LONG IN ONE SPOT, WALKING, STANDING, EXERCISES. Better: ELEVATING IT. ICE. Disturbed sleep: YES. Previous history/Previous treatment: ONE PRIOR R KNEE SURGERY FOR TORN MENISCUS. SERIES OF 3 INJECTIONS ONCE A YEAR FOR ABOUT 5 YEARS. Treatment this episode: R TKA 08/15/20. SX WAS AT [facility] WITH DR. THOMPSON. IN THE HOSPITAL UNTIL 08/16/20. PT IN THE HOSPITAL FOR AMBULATION AND EX. PATIENT REPORTS SHE HAS BEEN DOING 3 OF HER HOME EX'S GIVEN 3-4 TIMES A DAY X 20 REPS EA: ANKLE PUMPS, GLUT SETS AND SLR HOLDING LONG SHE CAN ON HER OWN. Gait: CAN ONLY WALK WITH THE WALKER AND CAN WALK FAR ENOUGHT TO GET FROM LIVING ROOM TO BEDROOM AND BATHROOM. Imaging: NO IMAGING SINCE SURGERY THAT PATIENT IS AWARE OF. PMH/Recent major surgery: SEE BELOW. OTHER: PATIENTS DAUGHTER GOPAL IS WITH PATIENT THROUGHOUT SESSION TODAY. PATIENT LIVES ALONE BUT FAMILY IS TAKING TURNS HELPING. ONE STEP INTO HOUSE AND 2 STEPS INTO KITCHEN BUT NONE IN THE HOUSE. GRAB BAR INTO KITCHEN. OTHER: PATIENT REPORTS COMPLICATION OF BLEEDING AFTER SURGERY AND HEMOGLOBIN GOT LOW. BLOODWORK TAKEN BEFORE PT SESSION TODAY. NO TRANSFUSION. TAKING OXICODONE - X 2 EVERY 4 HOURS. MOBIC AND TYLONOL. FOLLOW UP WITH ORTHO IN ONE WEEK 6/25/21. - Pain R KNEE Pain Intensity (Out of 10): Unrated Pain Intensity Range: 6, 9 - Objective THIS PATIENT IS BROUGHT BACK TO PT ROOM FROM [facility] IN A W/C BY HER DAUGHTER. SHE GARRISON HER WALKER WITH HER. SHE IS ABLE TO INDEP'LY TRANSFER FROM SIT TO STAND AT WALKER BUT CUEING NEEDED FOR PROPER TECHNIQUE. TRANSFER IMPROVED WITH TRAINING. SHE IS ABLE TO DEMO INDEP AND SAFE GAIT X APPROX 10 FEET X 2 DURING SESSION WITH FWW WBAT RIGHT LE. SHE HAS A LIMP ON THE RIGHT LE AND WALKS ON A BENT KNEE. MIN ASSIST PLUS ONE WITH RIGHT LE TO GET RIGHT LE ON AND OFF THE TABLE WITH SIT TO SUPINE TRANSFER AND REVERSE. PATIENT IS NOT ABLE TO COMMUNICATE OR DEMONSTRATE A GOOD UNDERSTANDING OF CURRENT HEP EVEN AFTER CUEING GIVEN. PATIENT TO BRING HER WRITTEN HEP WITH HER NEXT VISIT. ROM: RIGHT KNEE AROM IN SUPINE WITH A HEEL SLIDE = -10 DEG EXT TO 55 DEG FLEX. INSTRUCTED PATIENT NOT TO PROP UNDER RIGHT KNEE PUTTING IT IN A BENT POSITION. INSTRUCTED PATIENT IN IMPRORTANCE OF INCREASING RIGHT KNEE FLEX AND EXT ROM WITH THER EX. CIRCUMFRERENCE MEASUREMENTS R KNEE: PATELLA 50.5CM, 6 PROX 57CM. INCISION LOOKS GOOD WITHOUT ANY SIGNS OF INFECTION. STRENGTH: LLE STRENGTH IS WFL EXCEPT HIP GRADED 4/5. RLE: HIP 4-/5, KNEE EXT 2+/5, KNEE FLEX 2+/5, ANKLE DORSIFLEX 5/5. - Goals Goal 1:: DECREASE RIGHT KNEE EDEMA BY 2 CM'S Goal Time Frame: 6-8 Weeks Goal 2:: DECREASE C/O RIGHT KNEE PAIN TO 5/10 AT WORST Goal Time Frame: 6-8 Weeks Goal 3:: INCREASE FUNCTIONAL ROM OF RIGHT KNEE TO IMPROVE GAIT PATTERN AND EASE ADL'S (FULL EXTENSION TO 95 DEG FLEX). Goal Time Frame: 6-8 Weeks Goal 4:: INCREASE FUNCTIONAL STRENGTH OF R LE TO EASE GAIT AND ADL'S. Goal Time Frame: 6-8 Weeks Goal 5:: PATIENT WILL BE INDEP WITH A HEP FOR CONTINUED IMPROVEMENT ONCE FORMAL PHYSICAL THERAPY CONCLUEDS. Goal Time Frame: 6-8 Weeks Goal 6:: INDEP AND SAFE GAIT WITH LEAST ASSISTIVE DEVICE ON LEVEL SURFACES AND UP AND DOWN STAIRS. Goal Time Frame: 6-8 Weeks - Anticipated Interventions Patient/Client Instruction: Educate patient on: Condition, Plan of Care, Risk Factors For the Purpose of:: To improve self management Therapeutic Exercise to Include: Strength training, Body mechanics, Postural training, Flexibilty training, Gait and locomotor training, Neuromotor development, Passive ROM, Active ROM For the Purpose of:: To decrease pain, To increase ROM, To improve muscle performance and motor function, To increase tolerance to activity/condition/position, To improve ability of physical actions for h ome/community/work/leisure, To improve gait and locomotor functions Cryotherapy (ice pack, ice massage): Yes Thermo therapy (hot pack): Yes For the Purpose of:: To decrease pain, To decrease swelling/inflammation, To improve nutrient delivery to tissue Thank you for the opportunity to evaluate your patient. For Medicare and Medicare HMO plans, please review the plan of care and approve it. It will need to be FAXED BACK to us at [phone] for Medicare purposes. For Medicare only, by signing this I certify the plan of care. Please let me know if there are questions or concerns regarding this plan of care. Physician Signature: Date:____
--- NOTE | 2020-09-11 15:05 | HP.PTREVAL_ITS ---
Akshat Abreu PA-C, It has been my pleasure to treat ZE ROLAND over the last 8 visits for S/P R TKA 08/15/20. Please see the progress note below for an update on the physical therapy plan of care! Subjective: 09/21/20 ORTHO FOLLOW UP PENDING. STATES HER HEP IS GOING GOOD. PATIENT REPORTS SHE DOESN'T HAVE ANY CONCERNS ABOUT HER KNEE AT THIS POINT AND SHE FEELS PRETTY CONFIDENT WITH IT. PATIENT REPORTS SHE WENT TO THE [employer] AND WAS ABLE TO DO ABOUT 16 STEPS. STATES SHE CAN GET IN AND OUT OF HER HOUSE BETTER NOW. DAUGHTERS HAVE LEFT AND SHE IS STAYING BY HERSELF NOW. STATES SHE CAN DO EVERYTHING SHE WANTS TO DO BY HERSELF EXCEPT DRIVE. STATES THE DOCTORS OFFICE TOLD HER IT IS RECOMMENDED THAT SHE WAIT [address] PATIENT REPORTS SHE IS NOT USING HER CANE AND WALKER ANYMORE. PATIENT REPORTS SHE WANTS TO BE RELEASED. Objective/Function: PATIENT WAS SEEN TODAY FOR RE-ASSESSMENT OF PROGRESS TOWARD THE SET PT GOALS AND THE NEED FOR FURTHER PHYSICAL THERAPY VS READINESS FOR DISCHARGE. PATIIENT WOULD LIKE TO BE DISCHARGED BUT IS AGREEABLE TO RECHECK IN ABOUT 10 DAYS TO CHECK PROGRESS. UPON EXAM TODAY: SHE IS INDEP WITH GAIT ON LEVEL SURFACES WITH EQUAL WEIGHT BEARING TIME WITHOUT AD AND NO LOSS OF BALANCE. GOOD HEEL STRIKE, FOOT FLAT AND TOE OFF PHASES OF GAIT. SHE IS INDEP WITH A HEP AND HAS FULL RIGHT KNEE EXT TO 105 DEG ACTIVE FLEXION AND 112 DEG PASSIVE FLEXION WITH SELF STRETCHING WITH BELT. STRENGTH: RIGHT HIP 4/5, RIGHT KNEE 4/5, ANKLE 5/5. AFTER STAIR TRAINING SHE DEMO'S INDEP GAIT UP AND DOWN STEPS RECIPRICALLY WITH ONE HAND RAIL X 2 FLIGHTS OF STEPS. SHE STILL HAS TIGHT GASTROC SOLEUS COMPLEX'S AND AFTER INSTRUCTION DEMO'D INDEP CALF STRETCHING WITH WALL LEAN AND TOE RAISES IN SITTING AND STANDING (WRITTEN INSTRUCTIONS PROVIDED FOR HOME). SHE COMMUNICATES A GOOD UNDERSTANDING OF ALL INSTRUCTIONS AFTER GIVEN TODAY. Plan Plan: RE-CHECK IN ~10 DAYS. HEAT OR CP NEEDED. GAIT TRAINING WBAT R. R KNEE REHAB FOR S/P R TKR. RIGHT LE ROM, STRETCHING AND STRENGTHENING. Goals Goal 1:: DECREASE RIGHT KNEE EDEMA BY 2 CM'S Goal Time Frame: 6-8 Weeks Goal Progress: Progressing Goal 2:: DECREASE C/O RIGHT KNEE PAIN TO 5/10 AT WORST Goal Time Frame: 6-8 Weeks Goal Progress: Progressing Goal 3:: INCREASE FUNCTIONAL ROM OF RIGHT KNEE TO IMPROVE GAIT PATTERN AND EASE ADL'S (FULL EXTENSION TO 95 DEG FLEX). Goal Time Frame: 6-8 Weeks Goal Progress: Progressing Goal 4:: INCREASE FUNCTIONAL STRENGTH OF R LE TO EASE GAIT AND ADL'S. Goal Time Frame: 6-8 Weeks Goal Progress: Progressing Goal 5:: PATIENT WILL BE INDEP WITH A HEP FOR CONTINUED IMPROVEMENT ONCE FORMAL PHYSICAL THERAPY CONCLUEDS. Goal Time Frame: 6-8 Weeks Goal Progress: Progressing Goal 6:: INDEP AND SAFE GAIT WITH LEAST ASSISTIVE DEVICE ON LEVEL SURFACES AND UP AND DOWN STAIRS. Goal Time Frame: 6-8 Weeks Goal Progress: Progressing Anticipated Interventions Patient/Client Instruction: Educate patient on: Condition, Plan of Care, Risk Factors For the Purpose of:: To improve self management Therapeutic Exercise to Include: Strength training, Body mechanics, Postural training, Flexibilty training, Gait and locomotor training, Neuromotor development, Passive ROM, Active ROM For the Purpose of:: To decrease pain, To increase ROM, To improve muscle performance and motor function, To increase tolerance to activity/condition/position, To improve ability of physical actions for home/community/work/leisure, To improve gait and locomotor functions Cryotherapy (ice pack, ice massage): Yes Thermo therapy (hot pack): Yes For the Purpose of:: To decrease pain, To decrease swelling/inflammation, To improve nutrient delivery to tissue Please do not hesitate to contact me at [phone] by phone or if you have questions or concerns regarding this new plan of care! Sincerely, Isabel Henry, PT, Cert MDT
--- NOTE | 2021-01-09 12:59 | HP.PT.NRP ---
ZE ROLAND was seen in my office for initial evaluation on 08/18/20. The following Plan of Care was established for this patient: Initial Frequency: 2-3x /Week Initial Duration: 4-6 Weeks Patient/Client Instruction: Educate patient on: Condition, Plan of Care, Risk Factors For the Purpose of:: To improve self management Therapeutic Exercise to Include: Strength training, Body mechanics, Postural training, Flexibilty training, Gait and locomotor training, Neuromotor development, Passive ROM, Active ROM For the Purpose of:: To decrease pain, To increase ROM, To improve muscle performance and motor function, To increase tolerance to activity/condition/position, To improve ability of physical actions for home/community/work/leisure, To improve gait and locomotor functions Cryotherapy (ice pack, ice massage): Yes Thermo therapy (hot pack): Yes For the Purpose of:: To decrease pain, To decrease swelling/inflammation, To improve nutrient delivery to tissue This patient was last seen in our office 09/11/20. Pertinent comments regarding their Physical therapy will appear below: This patient has not returned to Physical Therapy and is appropriate to return to MD for further follow-up as needed. At this point I will be discontinuing this patient from physical therapy. I would be happy to see this patient again in the future if found appropriate by the physician. Thank you! Isabel Henry, PT, Cert MDT Balance/Gait/Functional tests - Balance/Special Test Scores Lower Extremity Functional Score: 51
== END 2020-09-11 19:00 | disposition home or self-care (01) ==
LOC: PT 14:00
PROVIDERS: PCP Internal Medicine; Referring Provider Physician Assistant Surgical; Visit Provider Physician Assistant Surgical
DX: Z47.1 Aftercare following joint replacement surgery (principal); Z96.651 Presence of right artificial knee joint; M17.31 Unilateral post-traumatic osteoarthritis, right knee
CPT/HCPCS: 97110; 97162; 97164; 97530

== ENCOUNTER 2020-11-28 12:43 | Emergency (ER) | payer MEDICARE, SELFPAY ==
[2020-11-28 12:47] VITALS: BP 115/88; PULSE 118; RESP 16; TEMP 36.1; O2SAT 99; BMI 29.2
[2020-11-28 14:25] VITALS: BP 136/80; PULSE 105; RESP 20; O2SAT 96
[2020-11-28 14:51] LABS: Absolute Lymphocyte Count 0.95 X10^3/uL (0.83-4.51); Basophil# 0.05 X10^3/uL; Basophil% 0.3 % (0-1); Eosinophils% 0.6 % (0-5); Hematocrit 43.9 % (37-47); Hemoglobin 14.7 g/dL (12.0-15.0); Lymphocyte # 0.95 X10^3/ul (0.83-4.51); Lymphocyte % 5.6 % (19-41); Mean Corp Hgb Conc 33.5 g/dL (32-36); Mean Corpuscular Hgb 31.3 pg (27.0-32.0); Mean Corpuscular Volume 93.4 fL (81-99); Mean Platelet Vol. 10.1 fl (6.2-12.0); Monocyte# 0.67 X10^3/uL; NRBC Flagged by Analyzer 0 % (0-5); Neutrophil # 15.03 X10^3/uL (2.7-7.7); Platelet Count 324 K/mm3 (150-450); RBC Distribution Width CV 14.7 % (11.6-14.6); White Blood Count 16.9 K/mm3 (4.4-11.0)
[2020-11-28 15:13] LABS: Anion Gap 9 (5-15); BUN 21 mg/dL (7-18); BUN/Creat Ratio 26.2 RATIO (10-20); Chloride 97 mmol/L (98-107); EST Glomerular Filtration Rate 74 mL/min (>60); Est Glom Filt Rate - Afr Amer 90 mL/min (>60); Estimated Creatinine Clearance 42.97 ml/min; Glucose 100 mg/dL (74-106); Potassium 4.5 mmol/L (3.5-5.1); Sodium Level 133 mmol/L (136-145); Troponin-I HS 6 pg/mL (3.0-54.0)
[2020-11-28 16:11] VITALS: BP 136/83; PULSE 107; RESP 21; O2SAT 95
--- NOTE | 2020-11-28 17:34 | EX.ED.DYSGE1 ---
HPI History of Present Illness Chief Complaint: Allergic Reaction Informant: patient Onset/Context/Timing Context: Sudden Onset Timing: Continuous Quality: Hives Location: Generalized Relieved by: Medications Narrative Narrative: Patient presents with allergic reaction that began today. Patient states she ate some garcia which she normally does not eat. Patient developed hives after this. Patient states the hives were all over. Patient saw her primary care physician who gave her a dose of Zyrtec, Benadryl, and prednisone. Patient was feeling better upon arrival to the emergency department. Patient denies any difficulty breathing or difficulty swallowing. Patient denies any chest pain. 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 PURVI (obstructive sleep apnea) Other secondary pulmonary hypertension Home Medications buspirone 15 mg PO BREAKFAST 05/13/14 [History Last Taken Unknown] cholecalciferol (vitamin D3) 5,000 unit PO DAILY 05/13/14 [History Last Taken Unknown] enalapril maleate 20 mg PO BID 05/13/14 [History Last Taken 08/05/18] esomeprazole magnesium 40 mg PO DAILY 05/13/14 [History Last Taken 08/05/18] furosemide 40 mg PO DAILY 05/13/14 [History Last Taken Unknown] levothyroxine 75 mcg PO DAILY 05/13/14 [History Last Taken 08/05/18] montelukast 10 mg PO DAILY 05/13/14 [History Last Taken Unknown] carvedilol 3.125 mg PO QHS 07/21/19 [History Last Taken Unknown] ascorbate calcium (vitamin C) 500 mg tablet 500 mg PO DAILY 09/02/19 [History Last Taken Unknown] budesonide-formoterol HFA 80 mcg-4.5 mcg/actuation aerosol inhaler 2 puff INHALATION BID 09/02/19 [History Last Taken Unknown] cyanocobalamin (vitamin B-12) 3,000 mcg capsule 3,000 mcg PO DAILY 09/02/19 [History Last Taken Unknown] duloxetine 60 mg capsule,delayed release sprinkle 60 mg PO DAILY 09/02/19 [History Last Taken Unknown] mometasone 50 mcg/actuation nasal spray g INTRANASAL 09/02/19 [History Last Taken Unknown] prednisone 10 mg tablet 10 mg PO DAILY #30 tab 09/02/19 [Rx Last Taken Unknown] rosuvastatin 5 mg tablet 5 mg PO DAILY tab 09/02/19 [History Last Taken Unknown] prednisone 60 mg PO DAILY #15 tablet 11/28/20 [Rx Last Taken Unknown] Allergy/AdvReac Type Severity Reaction Status Date / Time ezetimibe [From Vytorin] Allergy Other Verified 11/28/20 12:51 pravastatin sodium Allergy Other Verified 11/28/20 12:51 [From Pravachol] simvastatin [From Vytorin] Allergy Other Verified 11/28/20 12:51 Family History Grandmother Diabetes Mother Breast cancer Father COPD (chronic obstructive pulmonary disease) Surgical History History of appendectomy History of bilateral breast reduction surgery History of cholecystectomy History of hernia repair History of hysterectomy History of lateral meniscus repair of right knee History of left knee surgery Social History Smoking Status: Never smoker second hand exposure: No alcohol intake: current alcohol intake frequency: holidays/special occasions only substance use type: does not use caffeine: Yes what type of physical activity do you participate in: none ROS ROS ED Constitutional Constitutional ED: Denies chills or fever(s) Eyes Eyes: Denies blurry vision or change in vision ENT ENT ED: Denies rhinorrhea or sore throat Cardiovascular Cardiovascular: Denies chest pain or palpitations Respiratory/Chest Respiratory/Chest: Denies cough or dyspnea Gastrointestinal Gastrointestinal: Denies nausea or vomiting Genitourinary Genitourinary ED: Denies dysuria or hematuria Musculoskeletal Musculoskeletal: Denies back pain or neck pain Integumentary Reports rash; Denies abscess Neurologic Neurologic: Denies headache(s) or weakness Allergic/Immunologic Allergic/Immunologic ED: Reports urticaria; Denies mouth swelling EXAM Physical Exam Const Vital Signs: 11/28/20 12:47 11/28/20 14:25 11/28/20 16:11 Temperature 97.0 F L Temperature Source Temporal Pulse Rate 118 H 105 H 107 H Respiratory Rate 16 20 H 21 H Blood Pressure 115/88 H 136/80 H 136/83 H Blood Pressure Mean 97 98 100 Pulse Ox 99 96 95 Oxygen Delivery Method Room Air Room Air Room Air 11/28/20 18:04 Temperature Temperature Source Pulse Rate 107 H Respiratory Rate 23 H Blood Pressure 98/86 H Blood Pressure Mean Pulse Ox 96 Oxygen Delivery Method Positive well nourished and well developed General Appearance ED: well developed HEENT Reports moist mucous membranes Neck supple and no JVD Resp normal respiratory effort and clear to auscultation bilaterally Cardio regular rate, regular rhythm and no murmurs GI normal to inspection, nondistended, normoactive bowel sounds and non-tender Palpation: soft Extremity normal to inspection General Extremety ED: Negative for edema or tenderness General Extremity: Negative for edema Neuro oriented x3, CN's II-XII intact bilaterally and no sensory deficits noted Sensorium / Orientation: alert Motor Exam: strength 5/5 throughout Psych mental status grossly normal Skin Rashes: rashes noted Generalized Narrative: There is a diffuse urticarial rash noted. It is worse on the forearms bilaterally. There is no petechia. There is no involvement of mucous membranes. There is no discharge or drainage. macule MDM MDM MDM Narrative Medical decision making narrative: CBC shows a mild leukocytosis of 16.9. Basic metabolic profile was within normal limits. The leukocytosis is likely due to the steroids that she received. Patient's rash continued to improve. Patient was given a prescription for prednisone. Patient was instructed to follow-up with her primary care physician in 5 to 7 days. Patient understood and was agreeable with the plan. All questions were answered. Lab Data Attestation: I reviewed the patient's lab results. Labs: Laboratory Results - last 24 hr 11/28/20 11/28/20 14:35 14:35 WBC 16.9 H RBC 4.70 Hgb 14.7 Hct 43.9 MCV 93.4 MCH 31.3 MCHC 33.5 RDW Std Deviation 51.0 H RDW Coeff of Jona 14.7 H Plt Count 324 MPV 10.1 Immature Gran % (Auto) 0.500 Neut % (Auto) 89.0 H Lymph % (Auto) 5.6 L Conway % (Auto) 4.0 Eos % (Auto) 0.6 Baso % (Auto) 0.3 Absolute Neuts (auto) 15.0 H Absolute Lymphs (auto) 0.95 Nucleated RBC % 0 Sodium 133 L Potassium 4.5 Chloride 97 L Carbon Dioxide 27.0 Anion Gap 9 BUN 21 H Creatinine 0.80 Estim Creat Clear Calc 42.97 Est GFR (MDRD) Af Amer 90 Est GFR (MDRD) Non-Af 74 BUN/Creatinine Ratio 26.2 H Glucose 100 Calcium 9.0 Troponin I High Sens 6 Discharge Plan Triage Chief Complaint: Allergic Reaction ED Provider: Juaquin Johnson Dx/Rx/DC Orders Clinical Impression: Urticaria due to food allergy Instructions: ED General Allergic Reactions Prescriptions: New prednisone 20 MG tablet 60 mg PO DAILY Qty: 15 RF: 0 No Action rosuvastatin 5 mg tablet 5 mg PO DAILY RF: 0 duloxetine 60 mg capsule, delayed rel sprinkle 60 mg PO DAILY RF: 0 budesonide-formoterol [Symbicort] 80-4.5 mcg/actuation HFA aerosol inhaler 2 puff INHALATION BID RF: 0 mometasone 50 mcg/actuation spray,non-aerosol INTRANASAL RF: 0 cyanocobalamin (vitamin B-12) 3,000 mcg capsule 3,000 mcg PO DAILY RF: 0 ascorbate calcium (vitamin C) 500 mg tablet 500 mg PO DAILY RF: 0 prednisone 10 mg tablet 10 mg PO DAILY Qty: 30 RF: 0 furosemide 40 MG tablet 40 mg PO DAILY RF: 0 enalapril maleate 20 MG tablet 20 mg PO BID RF: 0 levothyroxine 75 MCG tablet 75 mcg PO DAILY RF: 0 esomeprazole magnesium 40 MG capsule 40 mg PO DAILY RF: 0 buspirone 7.5 MG tablet 15 mg PO BREAKFAST RF: 0 montelukast 10 MG tablet 10 mg PO DAILY RF: 0 cholecalciferol (vitamin D3) 1,000 UNIT tablet 5,000 unit PO DAILY RF: 0 carvedilol 3.125 MG tablet 3.125 mg PO QHS RF: 0 Primary Care Provider: Radha Dent Referrals: Radha Dent DO [Primary Care Provider] - 5-7 Days Disposition Disposition: Home, Self Care Discharge Date/Time: 11/28/20 18:06
[2020-11-28 18:04] VITALS: BP 98/86; PULSE 107; RESP 23; O2SAT 96
== END 2020-11-28 18:06 | disposition home or self-care (01) ==
PROVIDERS: Emergency Provider Emergency Medicine; PCP Internal Medicine
DX: L50.0 Allergic urticaria (principal); F41.9 Anxiety disorder, unspecified; F32.9 Major depressive disorder, single episode, unspecified; E78.5 Hyperlipidemia, unspecified; Z79.899 Other long term (current) drug therapy
CPT/HCPCS: 80048; 84484; 85025; 99285; A4216

== ENCOUNTER → 2021-01-30 15:17 | Outpatient (CLI) | payer MEDICARE, SELFPAY ==
--- NOTE | 2021-01-30 15:20 | BI_ITS ---
MAMMOGRAPHY - BILATERAL SCREENING REASON FOR EXAM: Female, 75 years old. Routine annual screening examination. PERTINENT HISTORY: Mother with breast cancer. History of prior bilateral breast reduction surgery. TECHNIQUE: Digital bilateral breast bret (3D mammographic acquisition) in the CC and MLO projections. 2-D mediolateral oblique (MLO) and craniocaudad (CC) views of both breasts were obtained. CAD: Full Field Digital Mammography with Computer Added Detection was performed. COMPARISON: Comparison is made with prior examination of 12/07/2019 and 06/11/2018. FINDINGS: Breast Composition: The breasts are almost entirely fatty. There are no dominant masses or suspicious calcifications. Stable small benign-appearing bilateral maxillary and ethmoid. No other significant abnormalities are identified. There has been no significant change since the prior study. BI/SCRN MAMM (CAD)W/BRET BILAT IMPRESSION: Stable bilateral screening mammogram. Yearly follow-up mammogram recommended. (A) ASSESSMENT CATEGORY: BIRADS Category 2: Benign. A letter regarding these results will be sent to the patient by the facility within 30 days. Approximately 10% of breast cancers are not detected by mammography. A normal mammogram should not delay biopsy of a clinically suspicious abnormality. [id number] Electronically Signed: Danny Manrique MD at 8:39 EST , Service support ,
== END ==
PROVIDERS: PCP Internal Medicine; Referring Provider Internal Medicine; Visit Provider Internal Medicine
DX: Z12.31 Encounter for screening mammogram for malignant neoplasm of breast (principal)
CPT/HCPCS: 77063; 77067

== ENCOUNTER → 2021-02-19 09:12 | Outpatient (CLI) | payer MEDICARE, SELFPAY ==
--- NOTE | 2021-02-19 09:25 | RAD_ITS ---
STUDY: X-RAY - ESOPHAGUS (BARIUM SWALLOW) WITH FLUOROSCOPY REASON FOR EXAM: Female, 75 years old. DYSPHAGIA TECHNIQUE: 31 view(s) of the esophagus were obtained following swallowing of barium. FLUOROSCOPY TIME (if supplied): (44 seconds) minutes/seconds COMPARISON: None. FINDINGS: There is no demonstrated esophageal foreign body. There is no demonstrated stricture or mucosal abnormality. Normal gastroesophageal junction, without a demonstrated hiatal hernia. The patient ingested a 12 mm tablet of barium without any difficulty. There is atherosclerotic calcification of the aortic arch with tortuosity of the descending aorta. Normal visualized pulmonary parenchyma. Normal visualized osseous structures of the thorax. RAD/Esophagus Dual Contrast IMPRESSION: Normal plain film x-ray examination (barium swallow) of the esophagus. Electronically Signed: Danny Manrique MD at 11:08 EST , Service support ,
== END ==
PROVIDERS: PCP Internal Medicine; Visit Provider Internal Medicine
DX: R13.10 Dysphagia, unspecified (principal); R00.2 Palpitations
CPT/HCPCS: 74221; 93225; 93226

== ENCOUNTER 2021-04-09 14:49 | Outpatient (CLI) | payer MEDICARE, SELFPAY ==
--- NOTE | 2021-04-09 14:53 | ECHOD_ITS ---
Reason For Study: Chest Tightness Procedure This was a 2D Doppler, Color Flow transthoracic echocardiogram. Exam performed portable in patient room. Left Ventricle Normal LV size. Left ventricular systolic function is normal. The estimated ejection fraction is 60 %. Stage 1 diastolic dysfunction. No regional wall motion abnormalities noted. Right Ventricle Normal RV size. Normal systolic function. Atria Normal left atrium. Normal right atrium. Mitral Valve Normal mitral valve. Tricuspid Valve Normal tricuspid valve. Aortic Valve Trisinus/trileaflet aortic valve. Pulmonic Valve Normal pulmonic valve. Great Vessels Normal aortic root. The pulmonary artery is normal size. Normal inferior vena cava. Pericardium/Pleural No pericardial effusion. MMode/2D Measurements & Calculations LVIDd: 4.2 cm IVSd: 0.86 cm LA dimension: 4.2 cm LVIDs: 3.3 cm LVPWd: 1.0 cm RVDd: 3.1 cm FS: 21.3 % LAV(MOD-bp): 27.3 ml LA A4 area: 12.5 cm2 RA A4 area: 9.6 cm2 LAV(MOD-bp) Indexed: 16.5 ml/m2 LAV(MOD-sp2): 26.8 ml LAV(MOD-sp4): 29.4 ml Time Measurements MV dec time: 0.17 sec Doppler Measurements & Calculations MV E max marco a: 60.4 cm/sec Lat Peak E' Marco A: 8.1 cm/sec Med Peak E' Marco A: 7.5 cm/sec MV A max marco a: 114.4 cm/sec E/E' lat: 7.5 E/E' med: 8.1 MV E/A: 0.53 MV V2 max: 119.8 cm/sec MV P1/2t max marco a: 52.4 cm/sec Ao V2 max: 87.6 cm/sec MV max P.7 mmHg MV P1/2t: 60.6 msec Ao max P.1 mmHg MV V2 mean: 55.9 cm/sec MV dec slope: 253.6 cm/sec2 MV mean P.7 mmHg MVA(P1/2t): 3.6 cm2 MV V2 VTI: 17.7 cm LV V1 max: 84.1 cm/sec PA V2 max: 108.1 cm/sec LV V1 max P.8 mmHg ECHO/Echo Complete Interpretation Summary Normal LV size. Left ventricular systolic function is normal. The estimated ejection fraction is 60 %. Stage 1 diastolic dysfunction. Ordering Physician: Radha Dent Referring Physician: Radha Dent Performed By: dE Velazquez RCS
== END 2021-04-09 23:59 | disposition home or self-care (01) ==
LOC: CVS 14:52
PROVIDERS: PCP Internal Medicine; Referring Provider Internal Medicine; Visit Provider Internal Medicine
DX: R07.89 Other chest pain (principal)
CPT/HCPCS: 93306

== ENCOUNTER 2021-05-31 10:42 | Day surgery (SDC) | payer MEDICARE, SELFPAY ==
[2021-05-31] VITALS (7 sets, daily range): BP systolic 130–167; BP diastolic 69–81; PULSE 82–90; RESP 16–18; TEMP 36.8–37.1; O2SAT 99–100; BMI 29.5
[2021-05-31] MEDS: Lactated Ringers 1,000 ML 15 ML IV (11:19)
--- NOTE | 2021-05-31 11:45 | EGD_PTH ---
PATIENT: ZE ROLAND V LOC: EN U#:[id number] AGE/SX: 75/F ROOM: RE05/31/[address]: Dr. Ash Gates DO : 1945 BED: DIS: 05/31/2021 SPEC #: [id number] RECD: 05/31/21 16:14 STATUS: SEBAS REKevyn #: [id number] JOCELIN: 05/31/21 11:[address]: Ash Gates DEPT: SURGICAL PATHOLOGY RECD BY: Cici Galan ENTERED: 06/01/21 08:46 SP TYPE: EGD BIOPSY OT DR: Dr. Radha Dent DO Tissues: Esophagus, NOS Procedures: Surgery Specimen Level IV HEADER OPERATION: EGD, dilation, biopsies ([facility]) PRE-OP DIAGNOSIS: GERD, dysphagia TISSUE SUBMITTED: Mid esophagus biopsy MICROSCOPIC DIAGNOSIS Mid esophagus, biopsy: No pathologic change. AM:valarie 06/04/2021 MICROSCOPIC DESCRIPTION Slides are reviewed. GROSS DESCRIPTION Received in fixative is one container labeled with the patient's name and designated mid esophagus biopsy. The specimen consists of multiple irregular fragments of light anderson soft tissue that in aggregate measure 1 x 0.4 x 0.1 cm. The specimen is totally submitted in one cassette. / SJ:valarie 06/01/2021 TC:5 CPT: 87251
--- NOTE | 2021-05-31 11:54 | PCM.HP.BLA ---
History and Physical Date of Admission: 05/31/21 ZE ROLAND, is a 75 F who presents to the office today for Pain/discomfort mid chest to upper abdomen with feelings of tightness and difficulty swallowing food and nausea with onset several years prior with significant worsening early January. PCP ordered esophagram and referred to this office. Esophagram performed 02.19.21 without abnormal results. Mentioned to ENT who examined with no reported abnormalities. EGD last performed 15 years prior for similar issue with finding of acid reflux with start of Nexium that has been helpful until January. Additional history includes osteopenia, COPD, emphysema, sinusitis, carotid stenosis, mild cardiomegaly, pulmonary HTN, HTN, apnea, anxiety, hyperlipidemia, hypothyroid, anemia. ROS Const Constitutional: No anorexia, fatigue, fever(s), weight change or sleep problems Eyes Eyes: No change in vision ENT ENT: No abnormal hearing, difficulty swallowing, mouth lesions, tongue swelling or throat swelling Resp Respiratory: No cough or shortness of breath Cardio Cardiology: No chest pain at rest, chest pain with exertion, shortness of breath or dyspnea on exertion Gastro GI: No difficulty swallowing Genitourinary-Female: No difficulty urinating or burning urination Musc Musculoskeletal: No joint pain, joint swelling, muscle weakness or decreased muscle mass Skin Skin: No hair loss in leg, yellowing of the eye, itchy eyes, rash, skin ulcer or skin swelling Neuro Neurology: No abnormal hearing, abnormal movements, confusion, unsteady gait/balance or memory loss Psych Psychiatric: No anxiety, No confusion and No memory loss Endo Endocrine: No fatigue or weight change Aller/Imm Allergy/Immunologic: No itchy eyes, throat swelling or tongue swelling Brigido/Lymp Hematologic/Lymphatic: No easy bleeding, easy bruising or enlarged lymph nodes Exam Const General: cooperative and comfortable Nutritional Appearance: average body habitus and well nourished [facility] Head: normal to inspection Ears: hearing grossly normal bilaterally Nose: external nose normal Face and sinus: normal facial exam Mouth: oral mucosae normal Throat: posterior oropharynx normal Eyes General: appearance normal, both eyes and all related structures Neck Neck: normal visual inspection Chest Chest palpation & inspection: normal inspection of the chest and normal palpation of entire chest wall Resp Effort & Inspection: normal respiratory effort Auscultation: Bilateral: Clear to Auscultation Cardio Palpation: normal PMI Rate: regular rate Rhythm: regular rhythm GI Inspection: normal to inspection Auscultation: normal bowel sounds Percussion: normal to percussion Palpation: no hepatosplenomegaly Skin General: no rashes or lesions noted Neuro General: patient alert Extrem General: normal to inspection Psych Affect: normal affect Quality Reporting Tobacco Screening ([facility] 138) Smoking Status: Never smoker Assessment and Plan Assessment and Plan (1) GERD (gastroesophageal reflux disease): Status: Acute Plan - Dr. Aleman Friend, DO: Patient has a history of GERD and alcoholic refractory GERD. Differential diagnosis would be nonerosive reflux disease, Patti esophagitis, hiatal hernia, erosive esophagitis, atypical gastritis, eosinophilic esophagitis, esophageal web or esophageal ring. She will undergo an upper endoscopy for evaluation of her upper GI tract. Depending on what we find she may need a gastric emptying study. I will not make any medication changes at this time because I want to see how everything looks and what the biopsies show. (2) Dysphagia: Status: Acute Plan - Dr. Aleman Friend, DO: The differential diagnosis for esophageal dysphagia would be hiatal hernia, esophageal ring, esophageal stricture, eosinophilic esophagitis. She will undergo an upper endoscopy and possible dilation of the esophagus. She was explained alternatives, risk, benefits including understanding bleeding, infection, sepsis, perforation, need for emergent . She'll have an ASA of 2. I have re-examined the patient. There are no clinical changes since date of exam.
--- NOTE | 2021-05-31 12:33 | OP.EGD_ITS ---
Patient Name: Kelly Arreola Procedure Date: 05/31/2021 11:55 AM Date of : 1945 Age: 75 Procedure: Upper GI endoscopy Indications: Dysphagia Providers: Ash Gates DO Medicines: See the Anesthesia note for documentation of the administered medications Patient Profile: This is a 75 year old female. Refer to note in patient chart for documentation of history and physical. Patient has symptoms of dysphagia with both liquids and solids. Complications: No immediate complications. Procedure: Pre-Anesthesia Assessment: - Prior to the procedure, a History and Physical was performed, and patient medications and allergies were reviewed. The patient is competent. The risks and benefits of the procedure and the sedation options and risks were discussed with the patient. All questions were answered and informed consent was obtained. Patient identification and proposed procedure were verified by the physician in the pre-procedure area. Mental Status Examination: alert and oriented. Airway Examination: normal oropharyngeal airway and neck mobility. Respiratory Examination: clear to auscultation. CV Examination: normal. Prophylactic Antibiotics: The patient does not require prophylactic antibiotics. Prior Anticoagulants: The patient has taken no previous anticoagulant or antiplatelet agents. ASA Grade Assessment: II - A patient with mild systemic disease. After reviewing the risks and benefits, the patient was deemed in satisfactory condition to undergo the procedure. The anesthesia plan was to use moderate sedation / analgesia (conscious sedation). Immediately prior to administration of medications, the patient was re-assessed for adequacy to receive sedatives. The heart rate, respiratory rate, oxygen saturations, blood pressure, adequacy of pulmonary ventilation, and response to care were monitored throughout the procedure. The physical status of the patient was re-assessed after the procedure. After obtaining informed consent, the endoscope was passed under direct vision. Throughout the procedure, the patient's blood pressure, pulse, and oxygen saturations were monitored continuously. The gastroscope was introduced through the mouth, and advanced to the second part of duodenum. The upper GI endoscopy was accomplished without difficulty. The patient tolerated the procedure well. Moderate Sedation: Moderate (conscious) sedation was administered by the endoscopy nurse and supervised by the endoscopist. The patient's oxygen saturation, heart rate, blood pressure and response to care were monitored. Total physician intraservice time was 15 minutes. Scope In: 12:11:19 PM Scope Out: 12:20:16 PM Total Procedure Duration Time 0 hours 8 minutes 57 seconds Findings: A 5 mm scar was found in the middle third of the esophagus, 35 cm from the incisors. Biopsies were taken with a cold forceps for histology. Verification of patient identification for the specimen was done. Estimated blood loss was minimal. One benign-appearing, intrinsic stenosis was found 35 to 37 cm from the incisors. This stenosis was moderately severe (circumferential scarring or stenosis; an endoscope may pass) and measured 2 mm (inner diameter) x 3 cm (in length). The stenosis was traversed. A guidewire was placed and the scope was withdrawn. Dilation was performed with a Savary dilator with no resistance at 51 Fr. The dilation site was examined and showed moderate improvement in luminal narrowing. Estimated blood loss was minimal. The entire examined stomach was normal. The first portion of the duodenum was normal. Impression: - Scar in the middle third of the esophagus. Biopsied. - Benign-appearing esophageal stenosis. Dilated. - Normal stomach. - Normal first portion of the duodenum. Recommendation: - Discharge patient to home. - Resume previous diet for 2 weeks. - Use sucralfate suspension 1 gram PO BID for 2 weeks. - Continue present medications. Procedure Code(s): --- Professional --- 49017, Esophagogastroduodenoscopy, flexible, transoral; with insertion of guide wire followed by passage of dilator(s) through esophagus over guide wire 82079, 59, Esophagogastroduodenoscopy, flexible, transoral; with biopsy, single or multiple 29148, 59, Moderate sedation services provided by the same physician or other qualified health acute care nursing assistant performing the diagnostic or therapeutic service that the sedation supports, requiring the presence of an independent trained observer to assist in the monitoring of the patient's level of consciousness and physiological status; initial 15 minutes of intraservice time, patient age 5 years or older CPT copyright 2017 [employer]. All rights reserved. The codes documented in this report are preliminary and upon acetaldehyde converter operator review may be revised to meet current compliance requirements. Ash Gates DO 05/31/2021 12:32:48 PM This report has been signed electronically. Number of Addenda: 1 Note Initiated On: 05/31/2021 11:55 AM Addendum Number: 1 Addendum Date: 11/28/2021 6:12:15 AM MAC was used as sedation for this procedure. Ash Gates DO 11/28/2021 6:12:46 AM This report has been signed electronically.
--- NOTE | 2021-05-31 12:34 | OP.CCLET_ITS ---
11/28/2021 Radha Dent [address] [place] [address] Re : Upper GI endoscopy procedure for Kelly Arreola Dear Dr. Dent This procedure was performed on May. My impressions and recommendations are as follows: Impressions : - Scar in the middle third of the esophagus. Biopsied. - Benign-appearing esophageal stenosis. Dilated. - Normal stomach. - Normal first portion of the duodenum. Recommendations : - Discharge patient to home. - Resume previous diet for 2 weeks. - Use sucralfate suspension 1 gram PO BID for 2 weeks. - Continue present medications. My findings are described in the full procedure note, which is enclosed. If I can be of further assistance, please feel free to contact me at . Sincerely, Ash Gates, 05/31/2021 12:32:48 PM This report has been signed electronically.
== END 2021-05-31 23:59 | disposition home or self-care (01) ==
LOC: EN 10:44 → AC 10:48
PROVIDERS: PCP Internal Medicine; Referring Provider Internal Medicine; Visit Provider Internal Medicine Gastroenterology
PROC: 0DJ08ZZ Inspection of Upper Intestinal Tract, Via Natural or Artificial Opening Endoscopic (ICD-10-PCS; CPT 43235; principal; 2021-05-31 11:40)
DX: K21.9 Gastro-esophageal reflux disease without esophagitis (principal); J43.9 Emphysema, unspecified; I27.20 Pulmonary hypertension, unspecified; R13.10 Dysphagia, unspecified; K22.2 Esophageal obstruction; I10 Essential (primary) hypertension; E78.5 Hyperlipidemia, unspecified; E03.9 Hypothyroidism, unspecified; Z79.890 Hormone replacement therapy; Z79.899 Other long term (current) drug therapy; F41.9 Anxiety disorder, unspecified; M19.90 Unspecified osteoarthritis, unspecified site
CPT/HCPCS: 43248; 43239; 88305; J7120; C1769; J2405

== ENCOUNTER 2021-07-13 14:39 | Emergency (ER) | payer MEDICARE, SELFPAY ==
[2021-07-13 14:43] VITALS: BP 89/64; PULSE 110; RESP 18; TEMP 36.1; O2SAT 97; BMI 31.1
--- NOTE | 2021-07-13 14:53 | EX.ED.DYSGE1 ---
HPI <DINA Rand - Last Filed: 07/13/21 17:10> History of Present Illness Chief Complaint: Allergic Reaction Narrative Narrative: 76-year-old female presents with allergic reaction. Around 12:30 pm she was sitting when she noticed hives on both hands. Over the next 10 minutes it spread to all her extremities, chest, and neck. She itches all over. She went to her PCP's office who gave IM Benadryl and Solu-Medrol and called EMS. While there she felt lightheaded and on the way here she felt short of breath but this resolved. She is also having diarrhea. No nausea or vomiting. No facial or lip or tongue swelling. She reports history of similar allergic reaction before but the etiology is unknown. She does not use an EpiPen. In the last week she is taking new fiber Gummies but no other new medications or foods. PFSH <DINA Rand - Last Filed: 07/13/21 17:10> [facility] Medical History (Updated 07/13/21 @ 16:18 by DINA Rand) Alcohol use Anemia Anxiety Arthritis BMI 32.0-32.9,adult Bronchitis Cancer Cardiology follow-up encounter COPD (chronic obstructive pulmonary disease) Cough Depression Depression Dermatofibroma Dyspnea Easy bruising Emphysema, unspecified GERD (gastroesophageal reflux disease) Hemangioma High cholesterol History of echocardiogram History of edema History of hiatal hernia History of Holter monitoring History of irregular heartbeat History of pain when walking History of skin cancer History of stress test Hyperlipidemia Hypersomnia Hypertension Lentigo Low iron Migraine headache Neoplasm of uncertain behavior of skin Non-smoker PURVI (obstructive sleep apnea) Other secondary pulmonary hypertension Shortness of breath on exertion Thyroid disease Wears glasses Wears hearing aid Home Medications buspirone 15 mg PO BREAKFAST 05/13/14 [History Last Taken Unknown] cholecalciferol (vitamin D3) 5,000 unit PO DAILY 05/13/14 [History Last Taken Unknown] enalapril maleate 20 mg PO BID 05/13/14 [History Last Taken 05/31/21] esomeprazole magnesium 40 mg PO DAILY 05/13/14 [History Last Taken 05/31/21] furosemide 40 mg PO DAILY 05/13/14 [History Last Taken Unknown] levothyroxine 75 mcg PO DAILY 05/13/14 [History Last Taken 05/31/21] montelukast 10 mg PO DAILY 05/13/14 [History Last Taken Unknown] carvedilol 3.125 mg PO QHS 07/21/19 [History Last Taken Unknown] ascorbate calcium (vitamin C) 500 mg tablet 500 mg PO DAILY 09/02/19 [History Last Taken Unknown] cyanocobalamin (vitamin B-12) 3,000 mcg capsule 3,000 mcg PO DAILY 09/02/19 [History Last Taken Unknown] duloxetine 60 mg capsule,delayed release sprinkle 60 mg PO DAILY 09/02/19 [History Last Taken Unknown] mometasone 50 mcg/actuation nasal spray 1 spray INTRANASAL DAILY 09/02/19 [History Last Taken Unknown] rosuvastatin 5 mg tablet 5 mg PO DAILY tab 09/02/19 [History Last Taken Unknown] albuterol sulfate 1 inh INHALATION Q6H PRN 05/30/21 [History Last Taken Unknown] zinc 50 mg PO DAILY 05/30/21 [History Last Taken Unknown] bupropion HCl 300 mg PO DAILY 05/31/21 [History Last Taken 05/31/21] sucralfate 100 mg/mL oral suspension 10 ml PO TID 14 Days #420 ml 05/31/21 [Rx Last Taken Unknown] diphenhydramine HCl [Benadryl Allergy] 50 mg PO Q6H PRN 4 Days #32 tab 07/13/21 [Rx Last Taken Unknown] epinephrine [EpiPen] 0.3 mg IM Q4H PRN #1 ea 07/13/21 [Rx Last Taken Unknown] prednisone 40 mg PO DAILY 4 Days #8 tab 07/13/21 [Rx Last Taken Unknown] Allergy/AdvReac Type Severity Reaction Status Date / Time ezetimibe [From Vytorin] Allergy Other Verified 07/13/21 15:10 pravastatin sodium Allergy Other Verified 07/13/21 15:10 [From Pravachol] simvastatin [From Vytorin] Allergy Other Verified 07/13/21 15:10 Family History Grandmother Diabetes Mother Breast cancer Father COPD (chronic obstructive pulmonary disease) Surgical History (Updated 05/30/21 @ 11:35 by Flower Chang) History of appendectomy History of bilateral breast reduction surgery History of cardiac catheterization History of cholecystectomy History of esophagogastroduodenoscopy (EGD) History of hernia repair History of hysterectomy History of lateral meniscus repair of right knee History of left knee surgery Hx of colonoscopy Hx of total knee arthroplasty Social History Smoking Status: Never smoker second hand exposure: No alcohol intake: current alcohol intake frequency: holidays/special occasions only substance use type: does not use caffeine: Yes what type of physical activity do you participate in: none ROS <DINA Rand - Last Filed: 07/13/21 17:10> ROS ED ROS Narrative Constitutional: Negative for fever, chills, malaise. Eyes: Negative for visual change. ENT: Negative for sore throat, ear pain, rhinorrhea. CVS: Negative for palpitations, chest pain, syncope. Respiratory: Negative for shortness of breath, cough, orthopnea. GI: Positive for diarrhea. Negative for abdominal pain, nausea, vomiting, constipation, melena, hematochezia. : Negative for dysuria, hematuria or frequency. Neuro: Negative for headache, motor/sensory dysfunction. Skin: Positive for rash. Negative for abscess, or wound. Musc: Negative for joint pain, swelling, trauma. Heme: Negative for easy bruising, bleeding, lymphadenopathy. EXAM <DINA Rand - Last Filed: 07/13/21 17:10> Physical Exam Narrative Exam Narrative: CONST: Patient sitting in no acute distress. EYES: Normal inspection. ENT: Normal inspection, moist mucous membranes, no angioedema. NECK: Normal inspection. No stridor. RESP: No respiratory distress, CTAB. CVS: Regular rate and rhythm, no murmur, no gallop. ABD: Soft and nontender, no guarding or rebound, nondistended. SKIN: Diffuse urticaria on neck chest and upper and lower extremities. EXTREMITIES: Normal appearance, no pedal edema. NEURO: Oriented x4. PSYCH: Normal affect. Const Vital Signs: 07/13/21 14:43 07/13/21 15:11 07/13/21 16:23 Temperature 97.0 F L Temperature Source Temporal Pulse Rate 110 H 101 H 104 H Respiratory Rate 18 18 17 Blood Pressure 89/64 L 99/65 128/89 H Blood Pressure Mean 72 76 102 Pulse Ox 97 97 96 Oxygen Delivery Method Room Air Room Air Room Air 07/13/21 17:33 Temperature Temperature Source Pulse Rate 100 Respiratory Rate 18 Blood Pressure 140/80 H Blood Pressure Mean Pulse Ox 97 Oxygen Delivery Method <Dr. Janina Christensen MD - Last Filed: 07/13/21 22:32> Physical Exam Const Vital Signs: 07/13/21 14:43 07/13/21 15:11 07/13/21 16:23 Temperature 97.0 F L Temperature Source Temporal Pulse Rate 110 H 101 H 104 H Respiratory Rate 18 18 17 Blood Pressure 89/64 L 99/65 128/89 H Blood Pressure Mean 72 76 102 Pulse Ox 97 97 96 Oxygen Delivery Method Room Air Room Air Room Air 07/13/21 17:33 Temperature Temperature Source Pulse Rate 100 Respiratory Rate 18 Blood Pressure 140/80 H Blood Pressure Mean Pulse Ox 97 Oxygen Delivery Method MDM <DINA Rand - Last Filed: 07/13/21 17:10> [facility] Narrative Medical decision making narrative: Patient presents with anaphylactic allergic reaction. BP 80s/60s, otherwise normal vital signs. She has diffuse urticaria and GI involvement with diarrhea. No respiratory issues on arrival but she did report some earlier. 1 L IV fluids is running from EMS and she received Benadryl and Solu-Medrol prior to arrival. In the ED and EpiPen was administered with additional liter IV fluids and Pepcid. Patient's vital signs are improving and she will be monitored. If stable plan will be to send home with an EpiPen prescription and continued steroids and Benadryl over the next few days. 1. Anaphylactic allergic reaction <Dr. Janina Christensen MD - Last Filed: 07/13/21 22:32> [facility] Treatment and Re-Evaluation Narrative: Patient seen and evaluated with KANCHAN. I personally interviewed and examined the patient. I was involved in all aspects of patient's orders, interpretation of results, and treatment. Patient presents via EMS from PCPs office. Patient developed allergic reaction with rash and hives over her upper and lower extremities today. She had a similar episode approximately 6 months ago but no definitive cause was identified. At the PCPs office patient was given IM Solu-Medrol as well as Benadryl. Patient's blood pressure was low. She did vasovagal episode. On arrival to the emergency room patient remains hypotensive with blood pressure 89/64. Patient was evaluated by DINA and given EpiPen along with fluids. At the time of my examination she is feeling much improved. Patient lying flat in bed in no acute distress. She is alert and talkative. Head neck examination is unremarkable. No tongue edema. Posterior pharynx unremarkable. Heart regular rate and rhythm. Lung sounds are clear. Abdomen soft nontender. Upper extremity examination reveals very mild erythema at this time with no urticarial lesions. She does have some mild erythema noted to her feet bilaterally. After being given EpiPen patient feels much improved. Rash is significantly improved. Blood pressure has climbed up into the 140 systolic range. Patient was observed for a total of 2 hours after receiving EpiPen. She continues to be stable. Hydrocortisone cream was applied to her feet for continued itching. Patient is given prescription for steroids at home along with an EpiPen. Return instructions provided. Discharge Plan Triage Chief Complaint: Allergic Reaction ED Midlevel Provider: Linda Muniz ED Provider: Janina Christensen Dx/Rx/DC Orders Clinical Impression: Anaphylactic reaction Instructions: ED Anaphylaxis Prescriptions: New epinephrine [EpiPen] 0.3 mg/0.3 mL auto-injector 0.3 mg IM Q4H PRN (Reason: use as needed for severe allergic reactio) Qty: 1 RF: 0 prednisone 20 mg tablet 40 mg PO DAILY 4 Days Qty: 8 RF: 0 diphenhydramine HCl [Benadryl Allergy] 25 mg tablet 50 mg PO Q6H PRN (Reason: rash, allergic reac) 4 Days Qty: 32 RF: 0 No Action rosuvastatin 5 mg tablet 5 mg PO DAILY RF: 0 duloxetine 60 mg capsule, delayed rel sprinkle 60 mg PO DAILY RF: 0 mometasone 50 mcg/actuation spray,non-aerosol 1 spray INTRANASAL DAILY RF: 0 cyanocobalamin (vitamin B-12) 3,000 mcg capsule 3,000 mcg PO DAILY RF: 0 ascorbate calcium (vitamin C) 500 mg tablet 500 mg PO DAILY RF: 0 furosemide 40 MG tablet 40 mg PO DAILY RF: 0 enalapril maleate 20 MG tablet 20 mg PO BID RF: 0 levothyroxine 75 MCG tablet 75 mcg PO DAILY RF: 0 esomeprazole magnesium 40 MG capsule 40 mg PO DAILY RF: 0 buspirone 7.5 MG tablet 15 mg PO BREAKFAST RF: 0 montelukast 10 MG tablet 10 mg PO DAILY RF: 0 cholecalciferol (vitamin D3) 1,000 UNIT tablet 5,000 unit PO DAILY RF: 0 carvedilol 3.125 MG tablet 3.125 mg PO QHS RF: 0 zinc 50 mg Tablet 50 mg PO DAILY RF: 0 albuterol sulfate 90 mcg/actuation Hfa Aerosol Inhaler 1 inh INHALATION Q6H PRN (Reason: SOB) RF: 0 bupropion HCl 300 mg tablet extended release 24 hr 300 mg PO DAILY RF: 0 sucralfate 100 mg/mL suspension 10 ml PO TID 14 Days Qty: 420 RF: 1 Primary Care Provider: Radha Dent Referrals: Radha Dent DO [Primary Care Provider] - Activity Restrictions/Additional Instructions: I prescribed EpiPen's to use if you ever have a severe allergic reaction in the future. I also prescribed prednisone and Benadryl to take over the next few days. If your symptoms worsen or you have trouble breathing immediately call 911. Disposition Disposition: Home, Self Care Discharge Date/Time: 07/13/21 17:39
[2021-07-13] MEDS: Famotidine 200 MG/20 ML MDV 20 MG in 0.9% Normal Saline (Pres. free 8 ML 300 MG IV (15:05)
[2021-07-13] MEDS: 0.9% Normal Saline 1,000 ML 999 ML IV (15:08)
[2021-07-13 15:11] VITALS: BP 99/65; PULSE 101; RESP 18; O2SAT 97
--- NOTE | 2021-07-13 16:22 | ED.RN ---
Pt states her feet are not itching now, refused hydrocortisone cream for now.
[2021-07-13 16:23] VITALS: BP 128/89; PULSE 104; RESP 17; O2SAT 96
[2021-07-13 17:33] VITALS: BP 140/80; PULSE 100; RESP 18; O2SAT 97
== END 2021-07-13 17:39 | disposition home or self-care (01) ==
PROVIDERS: Emergency Provider Emergency Medicine; PCP Internal Medicine; Visit Provider Emergency Medicine
DX: T78.2XXA Anaphylactic shock, unspecified, initial encounter (principal); J43.9 Emphysema, unspecified; I27.21 Secondary pulmonary arterial hypertension; R19.7 Diarrhea, unspecified; E78.5 Hyperlipidemia, unspecified; R55 Syncope and collapse; I10 Essential (primary) hypertension; I95.9 Hypotension, unspecified; M19.90 Unspecified osteoarthritis, unspecified site; K21.9 Gastro-esophageal reflux disease without esophagitis; Z79.899 Other long term (current) drug therapy; G47.33 Obstructive sleep apnea (adult) (pediatric); F41.9 Anxiety disorder, unspecified; F32.A Depression, unspecified
CPT/HCPCS: 96361; 96374; 99284; J3490

== ENCOUNTER 2021-09-15 14:53 | Emergency (ER) | payer MEDICARE, SELFPAY ==
[2021-09-15 14:53] VITALS: BP 163/94; PULSE 129; RESP 17; TEMP 36.6; O2SAT 95; BMI 29.2
--- NOTE | 2021-09-15 15:17 | EDS_ITS ---
HPI History of Present Illness Chief Complaint: Allergic Reaction Informant: patient Onset/Context/Timing Onset: Today Context: Sudden Onset Timing: Continuous Current Severity: Mild Maximum Severity: Mild Narrative Narrative: 76-year-old female history of allergic reactions this is her third episode of this. She has had no allergy testing as of yet she has appointment to follow-up with ENT coming up. Basically today lasting 30 minutes to an hour ago started having hives diffuse. Took 2 Benadryl and gave herself a dose of her EpiPen. She is feeling better now. She denies any lip or tongue swelling. She denies any wheezing. Prior similar symptoms: Yes Recent Illness/Hospitalization: No PFSH PFSH Medical History Alcohol use Anemia Anxiety Arthritis BMI 32.0-32.9,adult Bronchitis Cancer Cardiology follow-up encounter COPD (chronic obstructive pulmonary disease) Cough Depression Depression Dermatofibroma Dyspnea Easy bruising Emphysema, unspecified GERD (gastroesophageal reflux disease) Hemangioma High cholesterol History of echocardiogram History of edema History of hiatal hernia History of Holter monitoring History of irregular heartbeat History of pain when walking History of skin cancer History of stress test Hyperlipidemia Hypersomnia Hypertension Lentigo Low iron Migraine headache Neoplasm of uncertain behavior of skin Non-smoker PURVI (obstructive sleep apnea) Other secondary pulmonary hypertension Shortness of breath on exertion Thyroid disease Wears glasses Wears hearing aid Home Medications buspirone 7.5 mg tablet 15 mg PO BREAKFAST depression 05/13/14 [History Last Taken Unknown] cholecalciferol (vitamin D3) 25 mcg (1,000 unit) tablet 5,000 unit PO DAILY 05/13/14 [History Last Taken Unknown] enalapril maleate 20 mg tablet 20 mg PO BID htn 05/13/14 [History Last Taken 05/31/21] furosemide 40 mg tablet 40 mg PO DAILY 05/13/14 [History Last Taken Unknown] levothyroxine 75 mcg tablet 75 mcg PO DAILY thyroid 05/13/14 [History Last Taken 05/31/21] montelukast 10 mg tablet 10 mg PO DAILY 05/13/14 [History Last Taken Unknown] carvedilol 3.125 mg tablet 3.125 mg PO QHS htn 07/21/19 [History Last Taken Unknown] ascorbate calcium (vitamin C) 500 mg tablet 500 mg PO DAILY 09/02/19 [History Last Taken Unknown] cyanocobalamin (vitamin B-12) 3,000 mcg capsule 3,000 mcg PO DAILY 09/02/19 [History Last Taken Unknown] duloxetine 60 mg capsule,delayed release sprinkle 60 mg PO DAILY 09/02/19 [History Last Taken Unknown] mometasone 50 mcg/actuation nasal spray 1 spray intranasal DAILY 09/02/19 [History Last Taken Unknown] rosuvastatin 5 mg tablet 5 mg PO DAILY 09/02/19 [History Last Taken Unknown] albuterol sulfate 90 mcg/actuation aerosol inhaler 1 inh inhalation Q6H PRN SOB 05/30/21 [History Last Taken Unknown] zinc 50 mg tablet 50 mg PO DAILY 05/30/21 [History Last Taken Unknown] bupropion HCl 300 mg 24 hr tablet, extended release 300 mg PO DAILY 05/31/21 [History Last Taken 05/31/21] sucralfate 100 mg/mL oral suspension 10 ml PO TID 14 days #420 mL 05/31/21 [Rx Last Taken Unknown] diphenhydramine HCl 25 mg tablet (Benadryl Allergy) 50 mg PO Q6H PRN rash, allergic reac 4 days #32 tabs 07/13/21 [Rx Last Taken Unknown] epinephrine 0.3 mg/0.3 mL injection, auto-injector (EpiPen) 0.3 mg (0.3 mL) IM Q4H PRN use as needed for severe allergic reactio #1 ea 07/13/21 [Rx Last Taken Unknown] prednisone 20 mg tablet 40 mg PO DAILY 4 days #8 tabs 07/13/21 [Rx Last Taken Unknown] esomeprazole magnesium 40 mg capsule,delayed release 40 mg PO DAILY gerd #90 caps 07/27/21 [Rx Last Taken Unknown] epinephrine 0.3 mg/0.3 mL injection, auto-injector 0.3 mg (0.3 mL) IM Q10M PRN PRN anaphylaxis #1 ea 09/15/21 [Rx Last Taken Unknown] prednisone 20 mg tablet 40 mg PO DAILY 5 days #10 tabs 09/15/21 [Rx Last Taken Unknown] Allergy/AdvReac Type Severity Reaction Status Date / Time ezetimibe [From Vytorin] Allergy Other Verified 09/15/21 14:56 pravastatin sodium Allergy Other Verified 09/15/21 14:56 [From Pravachol] simvastatin [From Vytorin] Allergy Other Verified 09/15/21 14:56 Family History Grandmother Diabetes Mother Breast cancer Father COPD (chronic obstructive pulmonary disease) Surgical History History of appendectomy History of bilateral breast reduction surgery History of cardiac catheterization History of cholecystectomy History of esophagogastroduodenoscopy (EGD) History of hernia repair History of hysterectomy History of lateral meniscus repair of right knee History of left knee surgery Hx of colonoscopy Hx of total knee arthroplasty Social History Smoking Status: Never smoker second hand exposure: No alcohol intake: current alcohol intake frequency: holidays/special occasions only substance use type: does not use caffeine: Yes what type of physical activity do you participate in: none ROS ROS ED ROS Narrative Hives. Review of Systems ROS Unobtainable: Denies due to encephalopathy Constitutional Constitutional ED: Denies chills Eyes Eyes: Denies blurry vision ENT ENT ED: Denies ear pain Cardiovascular Cardiovascular: Denies chest pain Respiratory/Chest Respiratory/Chest: Denies cough Gastrointestinal Gastrointestinal: Denies abdominal pain Genitourinary Genitourinary ED: Denies dysuria Musculoskeletal Musculoskeletal: Denies arthralgias Integumentary Reports rash; Denies abscess Neurologic Neurologic: Denies headache(s) Psychiatric Psychiatric: Denies anxiety Endocrine Endocrinology: Denies cold intolerance Hematologic/Lymphatic Hematologic/Lymphatic: Reports none Allergic/Immunologic Allergic/Immunologic ED: Reports urticaria; Denies mouth swelling or tongue swelling EXAM Physical Exam Narrative Exam Narrative: 76-year-old female no acute distress vital signs stable afebrile. H EENT exam unremarkable. No swelling of her lips or tongue. Posterior pharynx normal. No stridor or drooling. Neck nontender. Lungs are clear. Heart regular rhythm rate about 105 no murmur. Abdomen soft nontender. Moving all 4 extremities. She has some scattered hives on her upper lower extremities. Appears to be resolving. Neurologically she is awake and alert with no focal motor deficits. Const Vital Signs: 09/15/21 14:53 Temperature 98 F Temperature Source Temporal Pulse Rate 129 H Respiratory Rate 17 Blood Pressure 163/94 H Blood Pressure Mean 117 Pulse Ox 95 Oxygen Delivery Method Room Air Positive well nourished and well developed; Negative for cachectic, contractures or unkempt General Appearance ED: well developed; Negative for unkempt, cachectic or contractures Nutritional Appearance: Negative for cachectic HEENT Reports moist mucous membranes; Denies dry mucous membranes Negative for trauma Mouth ED: No dry mucous membranes Mouth: No dry mucous membranes Eyes PERRL and EOMs intact bilaterally General Eye ED: Negative for pale conjunctiva or scleral icterus Neck no lymphadenopathy, supple and no JVD General: Negative for tenderness Lymph Lymphatic: Negative for other Chest Wall inspection of chest normal and palpation of chest normal Resp normal respiratory effort and clear to auscultation bilaterally Effort and Inspection: Negative for retractions Auscultation: Negative for rales, rhonchi or wheezes Cardio regular rate, regular rhythm, S1 normal heart sound, S2 normal heart sound and no murmurs GI normal to inspection, nondistended, normoactive bowel sounds, non-tender, non- distended and no masses Inspection: Negative for abdominal distention Auscultation: normoactive bowel sounds Palpation: soft Back/Spine no CVA tenderness General Back: Negative for CVA tenderness Cervical Spine: Negative for cervical spine tenderness Thoracic Spine / Upper Back: Negative for thoracic spinal tenderness Lumbar Spine / Lower Back: Negative for lumbar spinal tenderness Extremity normal to inspection General Extremety ED: Negative for edema or tenderness General Extremity: Negative for edema Neuro oriented x3 Sensorium / Orientation: alert; Negative for orientation impaired, lethargic or stuporous Motor Exam: strength 5/5 throughout; Negative for general weakness or strength abnormal Psych mental status grossly normal Appearance: Negative for unkempt Attitude: No agitated Mood & Affect: Negative for depressed, anxious or tearful Skin No no rashes or lesions noted and no wounds General Skin Exam: Negative for elasticity normal Lesions: No lesion noted Rashes: rashes noted Trauma: Negative for abrasion Wounds: Negative for wounds noted MDM MDM MDM Narrative Medical decision making narrative: 76-year-old with diffuse hives resolving after she took Benadryl and EpiPen at home. She will be given 1 dose of prednisone here. Prescription for prednisone at home for future use. And a prescription for EpiPen. She is scheduled to follow-up with ENT for allergy testing. Discharge Plan Triage Chief Complaint: Allergic Reaction ED Provider: Eliseo Gabriel Dx/Rx/DC Orders Clinical Impression: Allergic reaction, History of COPD Instructions: ED General Allergic Reactions Prescriptions: New epinephrine 0.3 mg/0.3 mL auto-injector 0.3 mg IM Q10M PRN PRN (Reason: anaphylaxis) Qty: 1 1RF Rx Instructions: for 2 doses prednisone 20 mg tablet 40 mg PO DAILY 5 Days Qty: 10 0RF Rx Instructions: If needed for future allergic reactions. No Action rosuvastatin 5 mg tablet 5 mg PO DAILY duloxetine 60 mg capsule, delayed rel sprinkle 60 mg PO DAILY mometasone 50 mcg/actuation spray,non-aerosol 1 spray INTRANASAL DAILY Label Comments: instill 2 sprays into each nostril once daily if needed cyanocobalamin (vitamin B-12) 3,000 mcg capsule 3,000 mcg PO DAILY ascorbate calcium (vitamin C) 500 mg tablet 500 mg PO DAILY furosemide 40 MG tablet 40 mg PO DAILY enalapril maleate 20 MG tablet 20 mg PO BID levothyroxine 75 MCG tablet 75 mcg PO DAILY buspirone 7.5 MG tablet 15 mg PO BREAKFAST montelukast 10 MG tablet 10 mg PO DAILY cholecalciferol (vitamin D3) 1,000 UNIT tablet 5,000 unit PO DAILY carvedilol 3.125 MG tablet 3.125 mg PO QHS zinc 50 mg Tablet 50 mg PO DAILY albuterol sulfate 90 mcg/actuation Hfa Aerosol Inhaler 1 inh INHALATION Q6H PRN (Reason: SOB) bupropion HCl 300 mg tablet extended release 24 hr 300 mg PO DAILY epinephrine [EpiPen] 0.3 mg/0.3 mL auto-injector 0.3 mg IM Q4H PRN (Reason: use as needed for severe allergic reactio) Qty: 1 0RF prednisone 20 mg tablet 40 mg PO DAILY 4 Days Qty: 8 0RF diphenhydramine HCl [Benadryl Allergy] 25 mg tablet 50 mg PO Q6H PRN (Reason: rash, allergic reac) 4 Days Qty: 32 0RF sucralfate 100 mg/mL suspension 10 ml PO TID 14 Days Qty: 420 1RF esomeprazole magnesium 40 mg capsule,delayed release(DR/EC) 40 mg PO DAILY Qty: 90 3RF Primary Care Provider: Radha Dent Referrals: Radha Dent, DO [Primary Care Provider] - As Needed Activity Restrictions/Additional Instructions: Follow-up with your allergy testing appointment as scheduled. If you have another reaction use Benadryl and try the prednisone first. If it is a more severe reaction or not improving with this medication you can always use the EpiPen. Disposition Disposition: Home, Self Care
[2021-09-15] MEDS: predniSONE 20 MG Tablet 60 MG PO (15:25)
--- NOTE | 2021-09-15 16:28 | ED.RN ---
HIVES ARE RESOLVING. NO LONGER NOTED TO BACK. SELENA ARMS WITH FEW FADED SPOTS. PT DENIES ANY ITCHING, SWELLING, TINGLING.
[2021-09-15 17:03] VITALS: BP 130/87; PULSE 74; RESP 16; O2SAT 99
== END 2021-09-15 17:03 | disposition home or self-care (01) ==
LOC: ED 15:50
PROVIDERS: Emergency Provider Emergency Medicine; PCP Internal Medicine; Visit Provider Emergency Medicine
DX: T78.40XA Allergy, unspecified, initial encounter (principal); J43.9 Emphysema, unspecified; E78.00 Pure hypercholesterolemia, unspecified; E78.5 Hyperlipidemia, unspecified; I10 Essential (primary) hypertension; M19.90 Unspecified osteoarthritis, unspecified site; E03.9 Hypothyroidism, unspecified; F41.9 Anxiety disorder, unspecified; F32.A Depression, unspecified
CPT/HCPCS: 99283

== ENCOUNTER → 2021-09-18 | Outpatient (CLI) | payer MEDICARE, SELFPAY ==
[2021-09-23 13:07] LABS: Almond <0.10 kU/L (Class 0); Apple <0.10 kU/L (Class 0); Banana 0.12 kU/L (Class 0/I); Barley, Whole Grain <0.10 kU/L (Class 0); Beef <0.10 kU/L (Class 0); Brazil Nut <0.10 kU/L (Class 0); Carrot <0.10 kU/L (Class 0); Chicken <0.10 kU/L (Class 0); Crab <0.10 kU/L (Class 0); Egg, Whole <0.10 kU/L (Class 0); Egg, Yolk <0.10 kU/L (Class 0); Garlic <0.10 kU/L (Class 0); Lobster <0.10 kU/L (Class 0); Oat <0.10 kU/L (Class 0); Onion <0.10 kU/L (Class 0); Orange <0.10 kU/L (Class 0); Pea <0.10 kU/L (Class 0); Peach <0.10 kU/L (Class 0); Pecan <0.10 kU/L (Class 0); Pork <0.10 kU/L (Class 0); Potato, White <0.10 kU/L (Class 0); Rice <0.10 kU/L (Class 0); SESAME SEED <0.10 kU/L (Class 0); Salmon <0.10 kU/L (Class 0); Strawberry <0.10 kU/L (Class 0); Tomato <0.10 kU/L (Class 0); Tuna <0.10 kU/L (Class 0); Yeast <0.10 kU/L (Class 0)
[2021-09-23 14:09] LABS: Cashew <0.10 kU/L (Class 0); Turkey <0.10 kU/L (Class 0)
[2021-09-26 16:08] LABS: Alternaria tenuis <0.10 kU/L (Class 0); Ash, White <0.10 kU/L (Class 0); Aspergillus fumigatus <0.10 kU/L (Class 0); Bermuda Grass 0.38 kU/L (Class I); Birch 4.14 kU/L (Class IV); Black Walnut <0.10 kU/L (Class 0); Cedar, Mountain <0.10 kU/L (Class 0); Cladosporium herbarum <0.10 kU/L (Class 0); Cockroach, American <0.10 kU/L (Class 0); Cottonwood <0.10 kU/L (Class 0); D farinae Mite <0.10 kU/L (Class 0); D pteronyssinus <0.10 kU/L (Class 0); Dog Epithelia 0.21 kU/L (Class 0/I); Elm, American White <0.10 kU/L (Class 0); Immunoglobulin E 549 IU/mL (6-495); Maple/Box Elder <0.10 kU/L (Class 0); Mulberry, White <0.10 kU/L (Class 0); Oak, White 0.56 kU/L (Class II); Pecan <0.10 kU/L (Class 0); Penicillium Notatum <0.10 kU/L (Class 0); Pigweed, Rough <0.10 kU/L (Class 0); Ragweed, Short/Common <0.10 kU/L (Class 0); Russian Thistle <0.10 kU/L (Class 0); Sheep Sorrel 0.16 kU/L (Class 0/I); Sycamore, American <0.10 kU/L (Class 0)
[2021-09-26 17:36] LABS: Mouse Urine <0.10 kU/L (Class 0)
== END | disposition home or self-care (01) ==
PROVIDERS: PCP Internal Medicine; Visit Provider Otolaryngology
DX: T78.40XA Allergy, unspecified, initial encounter (principal)
CPT/HCPCS: 36415; 82785; 86003

== ENCOUNTER 2022-01-21 14:00 | Outpatient (RCR) | payer MEDICARE, SELFPAY ==
--- NOTE | 2021-12-24 09:47 | HP.PTEVAL ---
Patient's Visit Information ZE ROLAND is a 76 year old F referred to Physical Therapy by Akshat Abreu PA-C with a diagnosis of LTKA. Date of Evaluation: 12/21/21 Physical Therapist: Rigo Pringle DPT - Visit Plan Frequency: 2x /Week Duration: 6 Weeks Plan: Start with ROM regaining ROM to 0-0-120deg. Add in HS stretching. Progress quad/glute med strengthening progressing to functional activities. - Subjective Pt. is here today for her initial evaluation with diagnosis of L TKA. Pt. had surgery on 12/18/21. Pt. reports overall doing well. Pt. denies N/t, no shortness of breath, no calf pain and no fever or chills. Pt. did have a R TKA last year. Pt. arrives using FWW with good tolerance. Pt. has been sleeping well. She lives alone, but has her daughter alternating assisting at home. Pt. does not have stairs at home, 1 step to enter home, pt. reports no issues with this. Pt. is retired, but would like to get back to walking her dog around the block. Pt. reports having 5/10 pain currently. Pt. has been working on quad sets, and heel slides at home. Pt. to see physician in 10 days. - Pain L knee Pain Intensity (Out of 10): 5 Pain Intensity Range: 2, 8 - Objective POSTURE: Pt. has fairly normal posture in stance. Pt. is able to stand without AD. She does lack TKE in stance and slight wt. shift to R side. PALPATION: Pt. has no signs of infection, - homans sign. Pt. has slight redness and increased heat, but as expected. NEURO: Pt. has normal Achilles DTR bilat. Pt. is able to rise on heels without issues. ROM: R knee: 0-0-121deg. L knee 0-3-81deg in supine. Pt. has normal HS length bilat. MMT: RLE: 5/5 throughout. LLE: ankle 5/5 throughout; knee: ext 2#, flexion 5#; hip: flexion 5#, abd 4#. GAIT: pt. ambulates with FWW, but does lack TKE on L side, decreased knee flexion during swing phase as well. - Balance/Special Test Scores Lower Extremity Functional Score: 2 TUG Test Time Seconds: 29.8 30 Second Chair Rise Test Seconds: 4 WOMAC Total Score: 50 WOMAC Percentatge: 47.9200 - Goals Goal 1:: LTG: Pt. to be I with HEP. Goal Time Frame: 4-6 Weeks Goal 2:: STG: pt. to have increased ROM of L knee to 0-0-120deg. Goal Time Frame: 2-4 Weeks Goal 3:: LTG: Pt. to have increased LLE strength to at least 20# throughout LLE. Goal Time Frame: 4-6 Weeks Goal 4:: LTG: Pt. to have normal gait pattern with out AD allowing for increased tolerance to all dog walking and functional mobility. Goal 5:: LTG: Pt. to negotiate steps with 1 HR with reciprocal pattern without increase in symptoms. Goal Time Frame: 4-6 Weeks - Rehabilitation Potential Physical Therapy Diagnosis: Pt. has signs and symptoms consistent with L TKA. Pt. has marked hypomobility, weakness, increased pain, edema and difficulty walking. Pt. would benefit from PT to address the above limitations progressing back to all recreational walking and ADLs. Rehabilitation Potential: Excellent - Anticipated Interventions Patient/Client Instruction: Educate patient on: Condition, Plan of Care, Risk Factors, Benefits of Fitness Program For the Purpose of:: To facilitate caregiver knowledge, To improve self management, To prevent re-injury, To improve ability to perform tasks related to life management, To improve tolerance to ADL's Therapeutic Exercise to Include: Strength training, Power training, Endurance training, Balance training, Body mechanics, Postural training, Flexibilty training, Gait and locomotor training, Passive ROM, Active ROM For the Purpose of:: To decrease pain, To decrease swelling/inflammation, To increase ROM, To improve nutrient delivery to tissue, To increase oxygenation perfusion, To improve muscle performance and motor function, To improve ability to perform ADL's, To increase tolerance to activity/condition/position, To improve health of tissue, To decrease soft tissue restriction, To increase flexibility/ROM, To improve balance, To improve safety with gait Manual Therapy Techniques to Include: Manual lymph drainage, Mobilization, Soft tissue mobilization For the Purpose of:: To decrease pain, To decrease swelling/inflammation, To increase ROM, To improve nutrient delivery to tissue Cryotherapy (ice pack, ice massage): Yes Vasopneumatic device: Yes For the Purpose of:: To decrease pain, To decrease swelling/inflammation, To increase ROM Thank you for the opportunity to evaluate your patient. For Medicare and Medicare HMO plans, please review the plan of care and approve it. It will need to be FAXED BACK to us at [phone] for Medicare purposes. For Medicare only, by signing this I certify the plan of care. Please let me know if there are questions or concerns regarding this plan of care. Physician Signature: Date:
--- NOTE | 2022-01-21 15:29 | HP.PTREVAL ---
Akshat Abreu PA-C, It has been my pleasure to treat ZE ROLAND over the last 8 visits for LTKA. Please see the progress note below for an update on the physical therapy plan of care! Subjective: Pt. reports overall doing better. Pt. is going to [place] for the rest of the week. Follow up with physician next week. Objective/Function: Pt. reports overall doing well, no major issues noted. Pt. pleased. Pt. continues to progress as expected. ROM: PROM: 0-0-121, AROM: 0-0-117deg. MMT: 5/5 throughout LLE, except 5-/5 knee ext. GAIT: Pt. has decent gait pattern without AD. Pt. has good knee flexion during swing and good TKE during stance phase. STAIRS: reciprocal pattern with use of 1 HR without issues. TU.1sec Plan Plan: Pt. is to trial exercises the rest of this week. If she is doing well, she will cancel her next appt and follow up with physician. If having issues she will keep her next appointment. Balance/Gait/Functional tests - Balance/Special Test Scores Lower Extremity Functional Score: 59 TUG Test Time Seconds: 10.1 Tug Test: <10 sec.=free mobile 30 Second Chair Rise Test Seconds: 4 WOMAC Total Score: 50 WOMAC Percentage: 47.9200 Goals Goal 1:: LTG: Pt. to be I with HEP. Goal Time Frame: 4-6 Weeks Goal Progress: Goal Met Goal 2:: STG: pt. to have increased ROM of L knee to 0-0-120deg. Goal Time Frame: 2-4 Weeks Goal Progress: Goal Met Goal 3:: LTG: Pt. to have increased LLE strength to at least 20# throughout LLE. Goal Time Frame: 4-6 Weeks Goal Progress: Progressing Goal 4:: LTG: Pt. to have normal gait pattern with out AD allowing for increased tolerance to all dog walking and functional mobility. Goal Progress: Progressing Goal 5:: LTG: Pt. to negotiate steps with 1 HR with reciprocal pattern without increase in symptoms. Goal Time Frame: 4-6 Weeks Goal Progress: Progressing Anticipated Interventions Patient/Client Instruction: Educate patient on: Condition, Plan of Care, Risk Factors, Benefits of Fitness Program For the Purpose of:: To facilitate caregiver knowledge, To improve self management, To prevent re-injury, To improve ability to perform tasks related to life management, To improve tolerance to ADL's Therapeutic Exercise to Include: Strength training, Power training, Endurance training, Balance training, Body mechanics, Postural training, Flexibilty training, Gait and locomotor training, Passive ROM, Active ROM For the Purpose of:: To decrease pain, To decrease swelling/inflammation, To increase ROM, To improve nutrient delivery to tissue, To increase oxygenation perfusion, To improve muscle performance and motor function, To improve ability to perform ADL's, To increase tolerance to activity/condition/position, To improve health of tissue, To decrease soft tissue restriction, To increase flexibility/ROM, To improve balance, To improve safety with gait Manual Therapy Techniques to Include: Manual lymph drainage, Mobilization, Soft tissue mobilization For the Purpose of:: To decrease pain, To decrease swelling/inflammation, To increase ROM, To improve nutrient delivery to tissue Cryotherapy (ice pack, ice massage): Yes Vasopneumatic device: Yes For the Purpose of:: To decrease pain, To decrease swelling/inflammation, To increase ROM Please do not hesitate to contact me at [phone] by phone or if you have questions or concerns regarding this new plan of care! Sincerely, Rigo Pringle DPT
== END 2022-01-21 19:00 | disposition home or self-care (01) ==
LOC: PT 14:00
PROVIDERS: PCP Internal Medicine; Referring Provider Physician Assistant Surgical; Visit Provider Physician Assistant Surgical
DX: M17.12 Unilateral primary osteoarthritis, left knee (principal)
CPT/HCPCS: 97016; 97110; 97161; 97164

== ENCOUNTER → 2022-03-01 | Outpatient (CLI) | payer MEDICARE, SELFPAY | END | disposition home or self-care (01) | LOC: PSN 11:53 | PROVIDERS: PCP Internal Medicine; Referring Provider Nurse Practitioner Family; Visit Provider Nurse Practitioner Family | DX: R00.2 Palpitations (principal) | CPT/HCPCS: 93225; 93226 ==

== ENCOUNTER → 2022-03-13 | Outpatient (CLI) | payer MEDICARE, SELFPAY ==
--- NOTE | 2022-03-13 12:57 | NM_ITS ---
CLINICAL: 76-year-old female with clinical gastroparesis. SEMI-SOLID PHASE 99m Tc SULFUR COLLOID GASTRIC EMPTYING STUDY COMPARISON: None available FINDINGS: The patient was administered 1.0 mCi of 99m Tc sulfur colloid mixed with oatmeal and consumed per os. Image acquisitions in the anterior-posterior projections were obtained for 60 minutes. There is prompt visualization of the stomach. There is no gastroesophageal reflux identified. The T ? raw data emptying was calculated to be 54.39 minutes, (Normal: 12-56 minutes). NM/Gastric Emptying Study IMPRESSION: 1. NORMAL 99m Tc sulfur colloid semi-solid phase (oatmeal) gastric emptying imaging examination. A. There is upper limits of normal and therefore preserved semi-solid phase gastric emptying compared to normal controls. (Manuela et al, J Nucl Med Tech 38: 186, 2010). Electronically Signed: Ramakrishna Newton, at 21:27 EST ,
== END | disposition home or self-care (01) ==
LOC: NM 12:56
PROVIDERS: PCP Internal Medicine; Visit Provider Internal Medicine Gastroenterology
DX: K31.84 Gastroparesis (principal)
CPT/HCPCS: 78264; A9541

== ENCOUNTER → 2022-04-23 | Outpatient (CLI) | payer MEDICARE, SELFPAY ==
--- NOTE | 2022-04-23 07:07 | ECHOD_ITS ---
Reason For Study: Chest Pain Procedure This was a 2D Doppler, Color Flow transthoracic echocardiogram. The study was technically difficult. Exam performed in department. Left Ventricle Normal LV size. Left ventricular systolic function is normal. The estimated ejection fraction is 65 %. No evidence for diastolic dysfunction. No regional wall motion abnormalities noted. Right Ventricle Normal RV size. Normal systolic function. Atria Normal left atrium. Normal right atrium. No doppler evidence for ASD. Mitral Valve There is no mitral annular calcification. Mild focal mitral valve calcification of the posterior leaflet. Trivial mitral valve insufficiency. Tricuspid Valve Normal tricuspid valve. Trivial tricuspid valve insufficiency. Right ventricular systolic pressure estimated to be 31 mmHg. Aortic Valve Trisinus/trileaflet aortic valve. Mild diffuse aortic valve thickening. Pulmonic Valve The pulmonic valve is not well visualized. Great Vessels The aortic root is not well visualized. Pericardium/Pleural No pericardial effusion. MMode/2D Measurements & Calculations LVIDd: 4.0 cm IVSd: 1.0 cm LA dimension: 3.3 cm LVIDs: 2.5 cm LVPWd: 0.92 cm RVDd: 3.3 cm FS: 38.8 % LAV(MOD-bp): 38.1 ml LA A4 area: 10.7 cm2 RA A4 area: 10.0 cm2 LAV(MOD-sp2): 45.9 ml LAV(MOD-sp4): 22.9 ml Time Measurements MV dec time: 0.28 sec Doppler Measurements & Calculations MV E max marco a: 69.8 cm/sec Lat Peak E' Marco A: 8.7 cm/sec Med Peak E' Marco A: 7.3 cm/sec MV A max marco a: 89.7 cm/sec E/E' lat: 8.0 E/E' med: 9.5 MV E/A: 0.78 MV V2 max: 92.6 cm/sec MV P1/2t max marco a: 75.8 cm/sec Ao V2 max: 94.2 cm/sec MV max P.4 mmHg MV P1/2t: 83.6 msec Ao max P.6 mmHg MV V2 mean: 52.6 cm/sec Ao V2 mean: 71.1 cm/sec MV mean P.3 mmHg MV dec slope: 265.5 cm/sec2 Ao mean P.3 mmHg MV V2 VTI: 20.7 cm MVA(P1/2t): 2.6 cm2 Ao V2 VTI: 25.7 cm AV (velocity ratio): 0.73 LV V1 max: 81.2 cm/sec PA V2 max: 98.1 cm/sec TR max marco a: 265.4 cm/sec LV V1 max P.6 mmHg PA V2 mean: 74.3 cm/sec TR max P.2 mmHg LV V1 mean P.6 mmHg LV V1 mean: 58.7 cm/sec LV V1 VTI: 18.6 cm ECHO/Echo Complete Interpretation Summary The study was technically difficult. Left ventricular systolic function is normal. The estimated ejection fraction is 65 %. Mild focal mitral valve calcification of the posterior leaflet. Trivial mitral valve insufficiency. Trivial tricuspid valve insufficiency. Mild diffuse aortic valve thickening. Right ventricular systolic pressure estimated to be 31 mmHg. No evidence for diastolic dysfunction. Ordering Physician: Radha Dent Performed By: Ed Velazquez RCS
--- NOTE | 2022-04-23 08:45 | STRESSREP_ITS ---
Stress Test Report Date: 04-23-2022 Procedure: Pharmacologic stress nuclear imaging study Indications: Chest pain Consent: Per the patient Procedure: The patient underwent pharmacologic (Regadenoson 0.4mg ) evaluation with a peak heart rate of 81 beats per minute (56%predicted maximal heart rate) and a resting blood pressure of 148/88 mmHg and a peak blood pressure of 148/88 mmHg. The baseline ECG demonstrated normal sinus rhythm; poor R wave progression. The peak pharmacologic ECG demonstrated no obvious ECG changes. There were no cardiac dysrhythmias pretest, during pharmacologic infusion, or recovery. There was no complaint of chest discomfort during pharmacologic infusion or recovery. The examination was discontinued secondary to completion of protocol. Impression: 1. Pharmacologic (Regadenoson) evaluation 2. Peak pharmacologic ECG with no obvious ECG changes. 3. There were no cardiac dysrhythmias pretest, during pharmacologic infusion, or recovery. 4. Nuclear images pending Myocardial perfusion imaging study: Technique: The patient was injected with 10.0 millicuries of technetium 99m Cardiolite and subsequently rest SPECT Cardiolite nuclear imaging was obtained in the horizontal long, vertical long, and short axis views. The patient underwent pharmacologic (Regadenoson) evaluation with a peak heart rate of 81 beats per minute (56% percent predicted maximal heart rate) and a resting blood pressure of 148/88 mmHg and a peak blood pressure of 148/88 mmHg. The patient was injected with 32.9 millicuries of technetium 99m Cardiolite and subsequently stress SPECT Cardiolite nuclear imaging was obtained in the horizontal long, vertical long, and short axis views. A gated Cardiolite study at peak stress was obtained. Interpretation: Rest and stress SPECT Cardiolite nuclear imaging status post realignment, normalization, and attenuation correction demonstrate relative uniform tracer uptake and myocardial perfusion appearing within normal limits. There is end systolic thickening and brightening. The gated Cardiolite study demonstrates myocardial thickening and inward wall motion. The reported LVEF is 76%. Impression: 1. Rest and stress SPECT Cardiolite nuclear imaging demonstrate relative uniform tracer uptake and myocardial perfusion appearing within normal limits. 2. The gated Cardiolite study reports an LVEF of 76%. This note was generated with [employer] software. It may contain incorrect words, spelling, and punctuation that were not noted in checking the note before signing.
== END | disposition home or self-care (01) ==
LOC: CVS 07:04
PROVIDERS: PCP Internal Medicine; Visit Provider Internal Medicine
DX: R07.9 Chest pain, unspecified (principal)
CPT/HCPCS: 78452; 93017; 93306; A9500; A4216; J2785

== ENCOUNTER → 2022-10-10 | Outpatient (CLI) | payer MEDICARE, SELFPAY ==
--- NOTE | 2022-10-10 14:14 | BI_ITS ---
MAMMOGRAPHY - BILATERAL SCREENING REASON FOR EXAM: Female, 77 years old. Routine annual screening examination. PERTINENT HISTORY: Mother with breast cancer. History of prior bilateral breast reduction surgery. TECHNIQUE: Digital bilateral breast bret (3D mammographic acquisition) in the CC and MLO projections. 2-D mediolateral oblique (MLO) and craniocaudad (CC) views of both breasts were obtained. CAD: Full Field Digital Mammography with Computer Added Detection was performed. COMPARISON: Comparison is made with prior study dated January 30, 2021 and December 07, 2019. FINDINGS: Breast Composition: The breasts are almost entirely fatty. There are no dominant masses or suspicious calcifications. No other significant abnormalities are identified. There has been no significant change since the prior study. BI/SCRN MAMM (CAD)W/BRET BILAT IMPRESSION: Stable bilateral screening mammogram. Yearly follow-up mammogram recommended. (A) ASSESSMENT CATEGORY: BIRADS Category 1: Negative. A letter regarding these results will be sent to the patient by the facility within 30 days. Approximately 10% of breast cancers are not detected by mammography. A normal mammogram should not delay biopsy of a clinically suspicious abnormality. [id number] Electronically Signed: Danny Manrique MD at 15:00 EDT ,
== END | disposition home or self-care (01) ==
LOC: OPBI 14:13
PROVIDERS: PCP Internal Medicine; Referring Provider Internal Medicine; Visit Provider Internal Medicine
DX: Z12.31 Encounter for screening mammogram for malignant neoplasm of breast (principal); Z80.3 Family history of malignant neoplasm of breast
CPT/HCPCS: 77063; 77067

== ENCOUNTER 2022-10-31 12:17 | Emergency (ER) | payer MEDICARE, SELFPAY ==
[2022-10-31 12:18] VITALS: BP 160/103; PULSE 81; RESP 14; TEMP 35.6; O2SAT 97; BMI 29.4
--- NOTE | 2022-10-31 12:38 | EX.ED.DYSGE1 ---
HPI History of Present Illness Chief Complaint: Allergic Reaction Informant: patient Onset/Context/Timing Onset: Today Narrative Narrative: Patient presents with concern for allergic reaction. She states that she had 3 prior episodes similar to this. This morning well getting ready to go out for lunch she developed what sounds of a vagal reaction. She became very hot and sweaty with lightheadedness. She had nausea with dry heaves and diarrhea. She states she then noted some thickness to her lips and hives to her hands and toes. She states the skin on her face felt a little thick. She took 50 mg of p.o. Benadryl and called the squad. She did not require use of her EpiPen. Patient states she is feeling improved at this time. Patient states last time this happened they thought was because of her CHANG inhibitor. She has been off of this for a year. She states she did undergo allergy testing. The only thing she tested positive for was bananas with a very small percentage chance of reaction. She does report that she ate a banana this morning and has not had a banana in quite some time [facility] Medical History Alcohol use Anemia Anxiety Arthritis BMI 32.0-32.9,adult Bronchitis Cancer Cardiology follow-up encounter COPD (chronic obstructive pulmonary disease) Cough Depression Depression Dermatofibroma Dyspnea Easy bruising Emphysema, unspecified GERD (gastroesophageal reflux disease) Hemangioma High cholesterol History of echocardiogram History of edema History of hiatal hernia History of Holter monitoring History of irregular heartbeat History of pain when walking History of skin cancer History of stress test Hyperlipidemia Hypersomnia Hypertension Lentigo Low iron Migraine headache Neoplasm of uncertain behavior of skin Non-smoker PURVI (obstructive sleep apnea) Other secondary pulmonary hypertension Shortness of breath on exertion Thyroid disease Wears glasses Wears hearing aid Home Medications buspirone 7.5 mg tablet 15 mg PO BREAKFAST depression 05/13/14 [History Last Taken Unknown] cholecalciferol (vitamin D3) 25 mcg (1,000 unit) tablet 5,000 unit PO DAILY 05/13/14 [History Last Taken Unknown] furosemide 40 mg tablet 40 mg PO DAILY 05/13/14 [History Last Taken Unknown] levothyroxine 75 mcg tablet 75 mcg PO DAILY thyroid 05/13/14 [History Last Taken 05/31/21] montelukast 10 mg tablet 10 mg PO DAILY 05/13/14 [History Last Taken Unknown] carvedilol 3.125 mg tablet 3.125 mg PO QHS htn 07/21/19 [History Last Taken Unknown] ascorbate calcium (vitamin C) 500 mg tablet 500 mg PO DAILY 09/02/19 [History Last Taken Unknown] cyanocobalamin (vitamin B-12) 3,000 mcg capsule 3,000 mcg PO DAILY 09/02/19 [History Last Taken Unknown] duloxetine 60 mg capsule,delayed release sprinkle 60 mg PO DAILY 09/02/19 [History Last Taken Unknown] mometasone 50 mcg/actuation nasal spray 1 spray intranasal DAILY 09/02/19 [History Last Taken Unknown] rosuvastatin 5 mg tablet 5 mg PO DAILY 09/02/19 [History Last Taken Unknown] albuterol sulfate 90 mcg/actuation aerosol inhaler 1 inh inhalation Q6H PRN SOB 05/30/21 [History Last Taken Unknown] zinc 50 mg tablet 50 mg PO DAILY 05/30/21 [History Last Taken Unknown] bupropion HCl 300 mg 24 hr tablet, extended release 300 mg PO DAILY 05/31/21 [History Last Taken 05/31/21] sucralfate 100 mg/mL oral suspension 10 ml PO TID 14 days #420 mL 05/31/21 [Rx Last Taken Unknown] diphenhydramine HCl 25 mg tablet (Benadryl Allergy) 50 mg (2 x 25 mg) PO Q6H PRN rash, allergic reac 4 days #32 tabs 07/13/21 [Rx Last Taken Unknown] epinephrine 0.3 mg/0.3 mL injection, auto-injector (EpiPen) 0.3 mg (0.3 mL) IM Q4H PRN use as needed for severe allergic reactio #1 ea 07/13/21 [Rx Last Taken Unknown] epinephrine 0.3 mg/0.3 mL injection, auto-injector 0.3 mg (0.3 mL) IM Q10M PRN PRN anaphylaxis #1 ea 09/15/21 [Rx Last Taken Unknown] ondansetron HCl 4 mg tablet 4 mg PO Q8H #45 tabs 02/22/22 [Rx Last Taken Unknown] dexlansoprazole 60 mg capsule,biphase delayed release (Dexilant) 60 mg PO DAILY 3 months #90 caps 04/12/22 [Rx Last Taken Unknown] lansoprazole 30 mg capsule,delayed release 30 mg PO DAILY #90 caps 05/06/22 [Rx Last Taken Unknown] amitriptyline 10 mg tablet 10 mg PO QHS #30 tabs 06/14/22 [Rx Last Taken Unknown] famotidine 20 mg tablet 20 mg PO QHS #30 tabs 07/08/22 [Rx Last Taken Unknown] prednisone 20 mg tablet 40 mg (2 x 20 mg) PO DAILY #8 tabs 10/31/22 [Rx Last Taken Unknown] Allergy/AdvReac Type Severity Reaction Status Date / Time ezetimibe [From Vytorin] Allergy Other Verified 10/31/22 12:21 pravastatin sodium Allergy Other Verified 10/31/22 12:21 [From Pravachol] simvastatin [From Vytorin] Allergy Other Verified 10/31/22 12:21 Family History Grandmother Diabetes Mother Breast cancer Father COPD (chronic obstructive pulmonary disease) Surgical History History of appendectomy History of bilateral breast reduction surgery History of cardiac catheterization History of cholecystectomy History of esophagogastroduodenoscopy (EGD) History of hernia repair History of hysterectomy History of lateral meniscus repair of right knee History of left knee surgery Hx of colonoscopy Hx of total knee arthroplasty Social History Smoking Status: Never smoker second hand exposure: No alcohol intake: current alcohol intake frequency: holidays/special occasions only substance use type: does not use caffeine: Yes what type of physical activity do you participate in: none ROS ROS ED Constitutional Constitutional ED: Denies chills or fever(s) Eyes Eyes: Denies change in vision or discharge from eye(s) ENT ENT ED: Denies discharge from eye(s), rhinorrhea or sore throat Cardiovascular Cardiovascular: Denies chest pain or palpitations Respiratory/Chest Respiratory/Chest: Reports dyspnea; Denies cough Gastrointestinal Gastrointestinal: Reports abdominal pain, diarrhea and nausea; Denies vomiting Genitourinary Genitourinary ED: Denies difficulty urinating or dysuria Musculoskeletal Musculoskeletal: Denies back pain Integumentary Reports rash; Denies Abrasions Neurologic Neurologic: Reports paresthesias; Denies headache(s) or weakness Psychiatric Psychiatric: Reports anxiety; Denies depression Endocrine Endocrinology: Denies polydipsia or polyuria Allergic/Immunologic Allergic/Immunologic ED: Reports lip swelling and urticaria; Denies tongue swelling EXAM Physical Exam Const Vital Signs: 10/31/22 12:18 Temperature 96.1 F L Temperature Source Temporal Pulse Rate 81 Respiratory Rate 14 Blood Pressure 160/103 H Blood Pressure Mean 122 Pulse Ox 97 Oxygen Delivery Method Room Air Positive well nourished and well developed General Appearance ED: well developed HEENT Reports moist mucous membranes HEENT Narrative: No facial edema noted at this time. No lip or tongue edema. Eyes EOMs intact bilaterally Chest Wall inspection of chest normal and palpation of chest normal Resp normal respiratory effort and clear to auscultation bilaterally Cardio regular rate and regular rhythm GI non-tender Palpation: soft Extremity normal to inspection Neuro oriented x3 and no sensory deficits noted Motor Exam: strength 5/5 throughout Skin no rashes or lesions noted MDM MDM MDM Narrative Medical decision making narrative: Patient already took oral Benadryl prior to arrival. She is given Solu-Medrol and Pepcid at this time. Treatment and Re-Evaluation :: Patient was observed in the emergency room for 2 hours. She has had improvement in her symptoms and at this time feels back to baseline. Prescription for 4 additional days of prednisone. She is appointment with her PCP next week. Return instructions given. I do feel that the patient's episode of sweats, dizziness, diarrhea is all consistent with a vasovagal reaction. She then reports that she developed hives. Hives had resolved at the time she arrived to the emergency room and this was not witnessed by myself Discharge Plan Triage Chief Complaint: Allergic Reaction ED Provider: Janina Christensen Dx/Rx/DC Orders Clinical Impression: Allergic reaction Instructions: ED General Allergic Reactions Prescriptions: New prednisone 20 mg tablet 40 mg PO DAILY Qty: 8 0RF No Action rosuvastatin 5 mg tablet 5 mg PO DAILY duloxetine 60 mg capsule, delayed rel sprinkle 60 mg PO DAILY mometasone 50 mcg/actuation spray,non-aerosol 1 spray INTRANASAL DAILY Patient Comments: instill 2 sprays into each nostril once daily if needed cyanocobalamin (vitamin B-12) 3,000 mcg capsule 3,000 mcg PO DAILY ascorbate calcium (vitamin C) 500 mg tablet 500 mg PO DAILY dexlansoprazole [Dexilant] 60 mg capsule,biphase delayed releas 60 mg PO DAILY 90 Days Qty: 90 3RF furosemide 40 MG tablet 40 mg PO DAILY levothyroxine 75 MCG tablet 75 mcg PO DAILY buspirone 7.5 MG tablet 15 mg PO BREAKFAST montelukast 10 MG tablet 10 mg PO DAILY cholecalciferol (vitamin D3) 1,000 UNIT tablet 5,000 unit PO DAILY carvedilol 3.125 MG tablet 3.125 mg PO QHS zinc 50 mg Tablet 50 mg PO DAILY albuterol sulfate 90 mcg/actuation Hfa Aerosol Inhaler 1 inh INHALATION Q6H PRN (Reason: SOB) bupropion HCl 300 mg tablet extended release 24 hr 300 mg PO DAILY epinephrine [EpiPen] 0.3 mg/0.3 mL auto-injector 0.3 mg IM Q4H PRN (Reason: use as needed for severe allergic reactio) Qty: 1 0RF diphenhydramine HCl [Benadryl Allergy] 25 mg tablet 50 mg PO Q6H PRN (Reason: rash, allergic reac) 4 Days Qty: 32 0RF epinephrine 0.3 mg/0.3 mL auto-injector 0.3 mg IM Q10M PRN PRN (Reason: anaphylaxis) Qty: 1 1RF Rx Instructions: for 2 doses sucralfate 100 mg/mL suspension 10 ml PO TID 14 Days Qty: 420 1RF ondansetron HCl 4 mg tablet 4 mg PO Q8H Qty: 45 2RF lansoprazole 30 mg capsule,delayed release(DR/EC) 30 mg PO DAILY Qty: 90 3RF amitriptyline 10 mg tablet 10 mg PO QHS Qty: 30 1RF famotidine 20 mg tablet 20 mg PO QHS Qty: 30 2RF Primary Care Provider: Radha Dent Referrals: Radha Dent DO [Primary Care Provider] - [facility] appointment Disposition Disposition: Home, Self Care
[2022-10-31] MEDS: MethylPREDNISolone 125 MG/2 ML Vial IV (12:58)
[2022-10-31] MEDS: Famotidine 200 MG/20 ML MDV 20 MG in 0.9% Normal Saline (Pres. free 8 ML 300 MG IV (12:58)
[2022-10-31 14:26] VITALS: BP 177/129; PULSE 82; RESP 16; O2SAT 97
== END 2022-10-31 14:29 | disposition home or self-care (01) ==
PROVIDERS: Emergency Provider Emergency Medicine; PCP Internal Medicine; Visit Provider Emergency Medicine
DX: T78.40XA Allergy, unspecified, initial encounter (principal); R11.2 Nausea with vomiting, unspecified; R19.7 Diarrhea, unspecified; X58.XXXA Exposure to other specified factors, initial encounter
CPT/HCPCS: 96374; 96375; 99285; A4216; J3490

== ENCOUNTER → 2023-05-06 | Outpatient (CLI) | payer MEDICARE, SELFPAY ==
--- NOTE | 2023-05-06 11:12 | RAD_ITS ---
INDICATION: fall EXAMINATION/TECHNIQUE: X-RAY - LEFT XR Shoulder Min 2 Views 4 VIEWS COMPARISON: No relevant prior comparison study available FINDINGS: SOFT TISSUES: No soft tissue swelling or gas. No radiopaque foreign body. BONES/JOINTS: No evidence of acute fracture or dislocation. The clavicular joint is essentially unremarkable. Cephalad migration of the humeral head with narrowing of the space between the acromion process and humeral head associated with rotator cuff pathology. Mild narrowing of the glenohumeral joint. Old fractures of the left third and fourth ribs. RAD/Shoulder min 2 Views IMPRESSION: 1. Degenerative changes of the left shoulder as described above. 2. No evidence of acute fracture or dislocation. Electronically Signed: Tone Castillo MD at 11:32 EST ,
== END | disposition home or self-care (01) ==
LOC: MTRAD 11:04
PROVIDERS: PCP Internal Medicine; Referring Provider Physician Assistant; Visit Provider Physician Assistant
DX: R52 Pain, unspecified (principal); W19.XXXA Unspecified fall, initial encounter
CPT/HCPCS: 73030

== ENCOUNTER → 2023-05-23 | Outpatient (CLI) | payer MEDICARE, SELFPAY ==
--- NOTE | 2023-05-23 13:50 | CT_ITS ---
STUDY: CT ABDOMEN AND PELVIS WITH CONTRAST REASON FOR EXAM: Female, 77 years old. Abdominal pain/cramping RADIATION DOSAGE (If Supplied By Facility): CTDIvol = ( 13.9 ) mGy, DLP = ( 811.24 ) mGycm TECHNIQUE: Oral and amp; IV Readi-CAT and amp; 100mL Isovue-300 was administered. Transaxial images were obtained from the dome of the diaphragm to the symphysis pubis in the arterial, nephrographic and excretory phases. Multiplanar coronal and sagittal images were reformatted. Individualized Dose Optimization Techniques Were Used For This CT. COMPARISON: No relevant prior comparison study available FINDINGS: The visualized lung bases are unremarkable. The visualized portions of the heart are within normal limits. Unremarkable liver. There are surgical clips in the gallbladder fossa consistent with a prior cholecystectomy. Normal spleen. Normal pancreas. Normal bilateral adrenal glands. Small bilateral low-density lesions/cysts, the largest measures about 1.6 cm appears to be simple and no further follow-up exam is needed. No evidence of hydronephrosis. Somewhat distended stomach. Normal in caliber small bowel loops. No evidence of acute diverticulitis. There are surgical clips in the region of the appendix consistent with a prior appendectomy. There is mild atherosclerotic calcification of the abdominal aorta, without a demonstrated aneurysm. No retroperitoneal adenopathy. Normal urinary bladder. There is absence of the uterus consistent with a prior hysterectomy. Normal abdominal wall. Multilevel degenerative changes of the spine. Grade 1 anterolisthesis of L4 over L5. CT/Abdomen/Pelvis WITH Contrast IMPRESSION: 1. No focal acute inflammatory process. 2. Diverticulosis without evidence of acute diverticulitis. 3. Status post cystectomy and hysterectomy. Electronically Signed: Tone Castillo MD at 14:40 EDT ,
[2023-05-23 14:14] LABS: CREATININE FINGERSTICK < 1.0 mg/dL (0.55-1.02); EGFR FINGERSTICK > 60.0000 mL/min (>60)
== END | disposition home or self-care (01) ==
LOC: CT 13:48
PROVIDERS: PCP Internal Medicine; Referring Provider Internal Medicine Gastroenterology; Visit Provider Internal Medicine Gastroenterology
DX: K59.00 Constipation, unspecified (principal)
CPT/HCPCS: 74177; Q9967

== ENCOUNTER 2023-07-02 12:03 | Emergency (ER) | payer MEDICARE, SELFPAY ==
[2023-07-02 12:04] VITALS: BP 120/100; PULSE 85; RESP 18; TEMP 36.4; O2SAT 96; BMI 29.2
--- NOTE | 2023-07-02 12:57 | EX.ED.DYSGE1 ---
HPI History of Present Illness Chief Complaint: Allergic Reaction Informant: patient Onset/Context/Timing Onset: Today Context: Sudden Onset Timing: Continuous Quality: Hives, swelling Location: Hands, feet, and mouth Worsened by: Nothing Relieved by: Benadryl Narrative Narrative: Patient presents with hives that began today. Patient states it began rather suddenly. Patient states she was working with old coins when this began. Patient states she also started a new blood pressure medication proximately 2-1/2 weeks ago. Patient has had a history of prior hives and has seen an entry level finance for this in the past. Patient took some prednisone and Benadryl prior to arrival. Patient states that she vomited after taking the Benadryl. EMS then administered IV Benadryl prior to arrival. Currently, patient feels sleepy. Patient denies any shortness of breath at the present time. Patient denies any cough. Patient denies any difficulty swallowing or difficulty breathing. Patient denies any sore throat or sensation of throat swelling. [facility] Medical History Acquired hypothyroidism Alcohol use Anemia Anemia, blood loss Anxiety Apnea, sleep Arthritis BMI 28.0-28.9,adult BMI 32.0-32.9,adult BPV (benign positional vertigo) Bronchitis Cancer Candidiasis Cardiology follow-up encounter Carotid stenosis, bilateral Chest pain at rest Contusion of right shoulder COPD (chronic obstructive pulmonary disease) Coronary artery disease Cough Depression Depression Depression, controlled Dermatofibroma Dizzy spells Dyspnea Dysuria Easy bruising Emphysema, unspecified Enteritis Exercise intolerance Fatigue Gastroenteritis Gastroesophageal reflux disease without esophagitis Gastroparesis GERD (gastroesophageal reflux disease) Hemangioma High cholesterol History of echocardiogram History of edema History of hiatal hernia History of Holter monitoring History of irregular heartbeat History of pain when walking History of skin cancer History of stress test Hyperkalemia Hyperlipidemia Hypersomnia Hypertension Hypertension with heart disease Hypoglycemia Incisional hernia, without obstruction or gangrene Knee pain, right Leg edema Lentigo Lightheadedness Low iron Migraine headache Mild cardiomegaly Mixed hyperlipidemia Nausea Neoplasm of uncertain behavior of skin Non-smoker Obesity, unspecified PURVI (obstructive sleep apnea) Osteopenia Other secondary pulmonary hypertension Palpitation Post-nasal drip Postmenopausal Pulmonary hypertension Right shoulder strain Shortness of breath on exertion Shoulder pain Sinobronchitis Sinusitis, bacterial Sinusitis, chronic Situational anxiety Strain of right rotator cuff capsule SVT (supraventricular tachycardia) Tachycardia Thyroid disease Uncontrolled hypertension Vasovagal syncope Venous insufficiency Vitamin D deficiency Wears glasses Wears hearing aid Wheezing Home Medications buspirone 7.5 mg tablet 15 mg PO BREAKFAST depression 05/13/14 [History Last Taken Unknown] cholecalciferol (vitamin D3) 25 mcg (1,000 unit) tablet 5,000 unit PO DAILY 05/13/14 [History Last Taken Unknown] furosemide 40 mg tablet 40 mg PO DAILY 05/13/14 [History Last Taken Unknown] levothyroxine 75 mcg tablet 75 mcg PO DAILY thyroid 05/13/14 [History Last Taken 05/31/21] montelukast 10 mg tablet 10 mg PO DAILY 05/13/14 [History Last Taken Unknown] ascorbate calcium (vitamin C) 500 mg tablet 500 mg PO DAILY 09/02/19 [History Last Taken Unknown] cyanocobalamin (vitamin B-12) 3,000 mcg capsule 3,000 mcg PO DAILY 09/02/19 [History Last Taken Unknown] duloxetine 60 mg capsule,delayed release sprinkle 60 mg PO DAILY 09/02/19 [History Last Taken Unknown] mometasone 50 mcg/actuation nasal spray 1 spray intranasal DAILY 09/02/19 [History Last Taken Unknown] rosuvastatin 5 mg tablet 5 mg PO DAILY 09/02/19 [History Last Taken Unknown] albuterol sulfate 90 mcg/actuation aerosol inhaler 1 inh inhalation Q6H PRN SOB 05/30/21 [History Last Taken Unknown] zinc 50 mg tablet 50 mg PO DAILY 05/30/21 [History Last Taken Unknown] sucralfate 100 mg/mL oral suspension 10 ml PO TID 14 days #420 mL 05/31/21 [Rx Last Taken Unknown] diphenhydramine HCl 25 mg tablet (Benadryl Allergy) 50 mg (2 x 25 mg) PO Q6H PRN rash, allergic reac 4 days #32 tabs 07/13/21 [Rx Last Taken Unknown] epinephrine 0.3 mg/0.3 mL injection, auto-injector (EpiPen) 0.3 mg (0.3 mL) IM Q4H PRN use as needed for severe allergic reactio #1 ea 07/13/21 [Rx Last Taken Unknown] epinephrine 0.3 mg/0.3 mL injection, auto-injector 0.3 mg (0.3 mL) IM Q10M PRN PRN anaphylaxis #1 ea 09/15/21 [Rx Last Taken Unknown] ondansetron HCl 4 mg tablet 4 mg PO Q8H #45 tabs 02/22/22 [Rx Last Taken Unknown] dexlansoprazole 60 mg capsule,biphase delayed release (Dexilant) 60 mg PO DAILY 3 months #90 caps 04/12/22 [Rx Last Taken Unknown] amitriptyline 10 mg tablet 10 mg PO QHS #30 tabs 06/14/22 [Rx Last Taken Unknown] famotidine 20 mg tablet 20 mg PO QHS #30 tabs 11/05/22 [Rx Last Taken Unknown] coenzyme Q10 100 mg capsule (Co Q-10) 100 mg PO DAILY 05/06/23 [History Last Taken Unknown] cyclobenzaprine 5 mg tablet 5 mg PO TID PRN muscle spasm #20 tabs 05/06/23 [Rx Last Taken Unknown] amlodipine 5 mg tablet (Norvasc) 5 mg PO DAILY 06/19/23 [History Last Taken Unknown] bupropion HCl 150 mg 24 hr tablet, extended release 150 mg PO QAM 06/19/23 [History Last Taken Unknown] carvedilol 6.25 mg tablet 6.25 mg PO BID 06/19/23 [History Last Taken Unknown] clonidine HCl 0.1 mg tablet 0.1 mg PO QHS 06/19/23 [History Last Taken Unknown] lansoprazole 30 mg capsule,delayed release 30 mg PO DAILY 06/19/23 [History Last Taken Unknown] prednisone 20 mg tablet 60 mg (3 x 20 mg) PO DAILY #15 TABLETS 07/02/23 [Rx Last Taken Unknown] Allergy/AdvReac Type Severity Reaction Status Date / Time enalapril Allergy Severe Anaphylaxis Verified 07/02/23 12:10 Food Allergies: Uncoded Allergy Severe Anaphylaxis Verified 07/02/23 12:10 pravastatin [From Pravachol] Allergy Unknown myalgia Verified 07/02/23 12:10 fatigue ezetimibe [From Vytorin] Allergy Other Verified 07/02/23 12:10 pravastatin sodium Allergy Other Verified 07/02/23 12:10 [From Pravachol] simvastatin [From Vytorin] Allergy Other Verified 07/02/23 12:10 Family History (Updated 06/19/23 @ 14:08 by Diane Patel) Grandmother Diabetes Mother Breast cancer Ovarian cancer Father COPD (chronic obstructive pulmonary disease) CVA (cerebral vascular accident) Heart disease Surgical History History of appendectomy History of bilateral breast reduction surgery History of cardiac catheterization History of cholecystectomy History of esophagogastroduodenoscopy (EGD) History of hernia repair History of hysterectomy History of lateral meniscus repair of right knee History of left knee surgery Hx of colonoscopy Hx of total knee arthroplasty Social History household members: spouse current occupational status: retired pets and animals: Yes pets and animals: dog(s) Smoking Status: Never smoker second hand exposure: No alcohol intake: current alcohol intake frequency: holidays/special occasions only substance use type: does not use caffeine: Yes what type of physical activity do you participate in: none ROS ROS ED Constitutional Constitutional ED: Reports sweats; Denies chills or fever(s) Eyes Eyes: Reports blurry vision and diplopia ENT ENT ED: Denies rhinorrhea or sore throat Cardiovascular Cardiovascular: Denies chest pain or palpitations Respiratory/Chest Respiratory/Chest: Reports dyspnea; Denies cough Gastrointestinal Gastrointestinal: Reports diarrhea, nausea and vomiting Genitourinary Genitourinary ED: Denies dysuria or hematuria Musculoskeletal Musculoskeletal: Reports back pain; Denies neck pain Integumentary Reports rash; Denies abscess Neurologic Neurologic: Reports headache(s); Denies weakness Allergic/Immunologic Allergic/Immunologic ED: Reports urticaria; Denies mouth swelling EXAM Physical Exam Const Vital Signs: 07/02/23 12:04 07/02/23 13:04 07/02/23 14:00 Temperature 97.6 F L Temperature Source Oral Pulse Rate 85 88 86 Respiratory Rate 18 17 14 Blood Pressure 120/100 H 140/73 H 162/88 H Blood Pressure Mean 106 95 112 Pulse Ox 96 98 96 Oxygen Delivery Method Room Air Room Air Room Air 07/02/23 15:00 Temperature Temperature Source Pulse Rate 76 Respiratory Rate 24 H Blood Pressure 144/122 H Blood Pressure Mean 129 Pulse Ox 96 Oxygen Delivery Method Room Air Positive well nourished and well developed General Appearance ED: well developed and NAD HEENT Reports moist mucous membranes Neck supple and no JVD Resp normal respiratory effort and clear to auscultation bilaterally Cardio regular rate and regular rhythm GI non-tender and non-distended Palpation: soft Extremity normal to inspection Neuro oriented x3, CN's II-XII intact bilaterally and no sensory deficits noted Sensorium / Orientation: alert Motor Exam: strength 5/5 throughout Skin Skin Narrative: There is mild urticaria noted over the hands and feet. There are no vesicles or pustules noted. There are no petechia noted. There is no sloughing of the skin. There is no involvement of the mucous membranes. MDM MDM MDM Narrative Medical decision making narrative: Since the patient was given prednisone and Benadryl prior to arrival, patient was observed in the emergency department. Patient had no further episodes of urticaria or swelling. Patient was given a prescription for prednisone. Patient was instructed to continue Benadryl as needed for any itching. Patient was instructed to follow-up with her primary care physician in 5 to 7 days. Patient was also instructed to follow-up with her entry level finance as needed. Patient understood and was agreeable with the plan. All questions were answered. Discharge Plan Triage Chief Complaint: Allergic Reaction ED Provider: Juaquin Johnson Dx/Rx/DC Orders Clinical Impression: Urticaria, Contact dermatitis Instructions: ED Contact Dermatitis, ED Hives (Adult) Prescriptions: New prednisone 20 mg tablet 60 mg PO DAILY Qty: 15 0RF No Action rosuvastatin 5 mg tablet 5 mg PO DAILY duloxetine 60 mg capsule, delayed rel sprinkle 60 mg PO DAILY mometasone 50 mcg/actuation spray,non-aerosol 1 spray INTRANASAL DAILY Patient Comments: instill 2 sprays into each nostril once daily if needed cyanocobalamin (vitamin B-12) 3,000 mcg capsule 3,000 mcg PO DAILY ascorbate calcium (vitamin C) 500 mg tablet 500 mg PO DAILY dexlansoprazole [Dexilant] 60 mg capsule,biphase delayed releas 60 mg PO DAILY 90 Days Qty: 90 3RF coenzyme Q10 [Co Q-10] 100 mg capsule 100 mg PO DAILY cyclobenzaprine 5 mg tablet 5 mg PO TID PRN (Reason: muscle spasm) Qty: 20 0RF bupropion HCl 150 mg tablet extended release 24 hr 150 mg PO QAM amlodipine [Norvasc] 5 mg tablet 5 mg PO DAILY carvedilol 6.25 mg tablet 6.25 mg PO BID Rx Instructions: must administer with a meal/food clonidine HCl 0.1 mg tablet 0.1 mg PO QHS lansoprazole 30 mg capsule,delayed release(DR/EC) 30 mg PO DAILY furosemide 40 MG tablet 40 mg PO DAILY levothyroxine 75 MCG tablet 75 mcg PO DAILY buspirone 7.5 MG tablet 15 mg PO BREAKFAST montelukast 10 MG tablet 10 mg PO DAILY cholecalciferol (vitamin D3) 1,000 UNIT tablet 5,000 unit PO DAILY zinc 50 mg Tablet 50 mg PO DAILY albuterol sulfate 90 mcg/actuation Hfa Aerosol Inhaler 1 inh INHALATION Q6H PRN (Reason: SOB) epinephrine [EpiPen] 0.3 mg/0.3 mL auto-injector 0.3 mg IM Q4H PRN (Reason: use as needed for severe allergic reactio) Qty: 1 0RF diphenhydramine HCl [Benadryl Allergy] 25 mg tablet 50 mg PO Q6H PRN (Reason: rash, allergic reac) 4 Days Qty: 32 0RF epinephrine 0.3 mg/0.3 mL auto-injector 0.3 mg IM Q10M PRN PRN (Reason: anaphylaxis) Qty: 1 1RF Rx Instructions: for 2 doses sucralfate 100 mg/mL suspension 10 ml PO TID 14 Days Qty: 420 1RF ondansetron HCl 4 mg tablet 4 mg PO Q8H Qty: 45 2RF amitriptyline 10 mg tablet 10 mg PO QHS Qty: 30 1RF famotidine 20 mg tablet 20 mg PO QHS Qty: 30 2RF Primary Care Provider: Radha Dent Referrals: Radha Dent DO [Primary Care Provider] - 5-7 Days Disposition Disposition: Home, Self Care
[2023-07-02 13:04] VITALS: BP 140/73; PULSE 88; RESP 17; O2SAT 98
[2023-07-02 14:00] VITALS: BP 162/88; PULSE 86; RESP 14; O2SAT 96
[2023-07-02 15:00] VITALS: BP 144/122; PULSE 76; RESP 24; O2SAT 96
[2023-07-02 16:00] VITALS: BP 140/127; PULSE 82; RESP 16; O2SAT 98
[2023-07-02 16:13] VITALS: BP 140/127; PULSE 82; RESP 16; TEMP 36.7; O2SAT 98
== END 2023-07-02 16:14 | disposition home or self-care (01) ==
PROVIDERS: Emergency Provider Emergency Medicine; PCP Internal Medicine; Visit Provider Emergency Medicine
DX: L50.9 Urticaria, unspecified (principal); J43.9 Emphysema, unspecified; L25.9 Unspecified contact dermatitis, unspecified cause; E78.00 Pure hypercholesterolemia, unspecified; I10 Essential (primary) hypertension; Z79.899 Other long term (current) drug therapy
CPT/HCPCS: 99282

== ENCOUNTER → 2024-01-28 | Outpatient (CLI) | payer MEDICARE, SELFPAY ==
[2024-01-28 13:17] LABS: Absolute Lymphocyte Count 2.28 X10^3/uL (0.83-4.51); Absolute Neutrophil Count 8.3 X10^3/uL (2.0-7.7); Basophil# 0.11 X10^3/uL; Basophil% 0.9 % (0-1); Eosinophil# 0.28 X10^3/uL; Eosinophils% 2.2 % (0-5); Hematocrit 40.2 % (37-47); Hemoglobin 13.1 g/dL (12.0-15.0); Lymphocyte # 2.28 X10^3/ul (0.83-4.51); Lymphocyte % 17.7 % (19-41); Mean Corp Hgb Conc 32.6 g/dL (32-36); Mean Corpuscular Volume 95.3 fL (81-99); Mean Platelet Vol. 10.3 fl (6.2-12.0); Monocyte# 1.79 X10^3/uL; Monocyte% 13.9 % (0-10); NRBC Flagged by Analyzer 0 % (0-5); Neutrophil % 64.6 % (47-70); POSITIVE DIFFERENTIAL YES; Platelet Count 381 K/mm3 (150-450); RBC Distribution Width CV 13.7 % (11.6-14.6); RBC Distribution Width SD 47.9 fl (35.1-43.9); Red Blood Count 4.22 M/mm3 (4.2-5.4); White Blood Count 12.9 K/mm3 (4.4-11.0)
[2024-01-28 13:22] LABS: Differential Indicated SCAN CRITERIA MET
[2024-01-28 13:37] LABS: AST(SGOT) 11 U/L (15-37); Alanine Aminotransfer ALT/SGPT 16 U/L (13-56); Albumin, Serum 3.7 g/dL (3.2-5.0); Alkaline Phosphatase 118 U/L (45-117); Anion Gap 8 (5-15); BUN 17 mg/dL (7-18); BUN/Creat Ratio 18.2 RATIO (10-20); Calcium,Total 9.3 mg/dL (8.5-10.1); Chloride 98 mmol/L (98-107); Creatinine, Serum 0.93 mg/dL (0.55-1.02); EST Glomerular Filtration Rate 61 mL/min (>60); Est Glom Filt Rate - Afr Amer 74 mL/min (>60); Globulin 3.8 g/dL (2.2-4.2); Glucose 102 mg/dL (74-106); Potassium 3.1 mmol/L (3.5-5.1); Protein, Total 7.5 g/dL (6.4-8.2); Sodium Level 139 mmol/L (136-145)
[2024-01-28 13:41] LABS: Differential Comment SCANNED
[2024-01-28 13:45] LABS: BNP,B-Type NATRIURETIC PEPTIDE 47.9 pg/mL (0-100)
[2024-01-30 13:42] LABS: Pathologist Review Reviewed
== END | disposition home or self-care (01) ==
PROVIDERS: PCP Internal Medicine; Referring Provider Nurse Practitioner Family; Visit Provider Nurse Practitioner Family
DX: I11.9 Hypertensive heart disease without heart failure (principal); R06.02 Shortness of breath
CPT/HCPCS: 80053; 83880; 85025

== ENCOUNTER 2024-01-31 11:10 | Emergency (ER) | payer MEDICARE, SELFPAY ==
[2024-01-31 11:11] VITALS: BP 149/81; PULSE 80; RESP 20; TEMP 36.7; O2SAT 96
[2024-01-31] MEDS: Ipratropium/Albuterol Sulfate 3 ML AMPUL.NEB INHALATION (11:39)
[2024-01-31] MEDS: Albuterol 2.5 MG/3 ML VIAL.NEB. INHALATION (11:39)
--- NOTE | 2024-01-31 11:39 | EX.ED.DYSGE1 ---
HPI <DINA Verdugo - Last Filed: 01/31/24 14:00> History of Present Illness Chief Complaint: Cold Sx Narrative Narrative: Patient presenting today due to a cough and congestion she has had over the past 2 weeks. She has a history of COPD, she has been feeling more short of breath with exertion since her cough started. She also reports feeling fatigued. She has seen her PCP for this, she was prescribed a 10-day course of Augmentin which she had filled 01/23/2024 as well as a tapering of prednisone and today began Levaquin. She reports that her PCP did obtain labs a few days ago and she was told that she appeared dehydrated and had low potassium, she has not been taking any potassium replacement. She denies fevers, chills, chest pain, abdominal pain, nausea, and vomiting. [facility] <DINA Verdugo - Last Filed: 01/31/24 14:00> [facility] Medical History Candidiasis Hyperkalemia Sinusitis, chronic Gastroenteritis Enteritis Shoulder pain Knee pain, right Tachycardia Wheezing Nausea Dysuria Dizzy spells Anemia, blood loss Acquired hypothyroidism Hypoglycemia Vitamin D deficiency Obesity, unspecified Mixed hyperlipidemia Depression, controlled Situational anxiety Apnea, sleep BPV (benign positional vertigo) Hypertension with heart disease Coronary artery disease Pulmonary hypertension SVT (supraventricular tachycardia) Mild cardiomegaly Carotid stenosis, bilateral Venous insufficiency Sinusitis, bacterial Sinobronchitis Gastroesophageal reflux disease without esophagitis Gastroparesis Incisional hernia, without obstruction or gangrene Osteopenia Palpitation Chest pain at rest Post-nasal drip Fatigue Vasovagal syncope Leg edema Exercise intolerance BMI 28.0-28.9,adult Postmenopausal Lightheadedness Uncontrolled hypertension Contusion of right shoulder Strain of right rotator cuff capsule Right shoulder strain Wears hearing aid Wears glasses Cancer Depression Alcohol use Thyroid disease Arthritis Low iron Anemia High cholesterol Easy bruising Migraine headache History of hiatal hernia Non-smoker Emphysema, unspecified COPD (chronic obstructive pulmonary disease) Shortness of breath on exertion History of pain when walking History of edema Cardiology follow-up encounter Hypertension History of Holter monitoring History of stress test History of echocardiogram History of irregular heartbeat GERD (gastroesophageal reflux disease) Depression Anxiety Neoplasm of uncertain behavior of skin Hemangioma Lentigo Dermatofibroma History of skin cancer Dyspnea Other secondary pulmonary hypertension BMI 32.0-32.9,adult Hyperlipidemia Hypersomnia PURVI (obstructive sleep apnea) Bronchitis Cough Home Medications ?Medication ?Instructions ?Recorded ?Last Taken ?Type cholecalciferol (vitamin D3) 25 5,000 unit PO DAILY 05/13/14 Unknown History mcg (1,000 unit) tablet furosemide 40 mg tablet 40 mg PO DAILY 05/13/14 Unknown History levothyroxine 75 mcg tablet 75 mcg PO DAILY thyroid 05/13/14 05/31/21 History montelukast 10 mg tablet 10 mg PO DAILY 05/13/14 Unknown History ascorbate calcium (vitamin C) 500 500 mg PO DAILY 09/02/19 Unknown History mg tablet cyanocobalamin (vitamin B-12) 3,000 mcg PO DAILY 09/02/19 Unknown History 3,000 mcg capsule duloxetine 60 mg capsule,delayed 60 mg PO DAILY 09/02/19 Unknown History release sprinkle mometasone 50 mcg/actuation nasal 1 spray intranasal DAILY 09/02/19 Unknown History spray albuterol sulfate 90 mcg/actuation 1 inh inhalation Q6H PRN SOB 05/30/21 Unknown History aerosol inhaler zinc 50 mg tablet 50 mg PO DAILY 05/30/21 Unknown History diphenhydramine HCl 25 mg tablet 50 mg (2 x 25 mg) PO Q6H PRN rash, 07/13/21 Unknown Rx (Benadryl Allergy) allergic reac 4 days #32 tabs epinephrine 0.3 mg/0.3 mL 0.3 mg (0.3 mL) IM Q10M PRN PRN 09/15/21 Unknown Rx injection, auto-injector anaphylaxis #1 ea famotidine 20 mg tablet 20 mg PO QHS #30 tabs 11/05/22 Unknown Rx coenzyme Q10 100 mg capsule (Co 100 mg PO DAILY 05/06/23 Unknown History Q-10) bupropion HCl 150 mg 24 hr tablet, 150 mg PO QAM 06/19/23 Unknown History extended release carvedilol 6.25 mg tablet 6.25 mg PO BID 06/19/23 Unknown History clonidine HCl 0.1 mg tablet 0.1 mg PO QHS 06/19/23 Unknown History prednisone 20 mg tablet 60 mg (3 x 20 mg) PO DAILY #15 07/02/23 Unknown Rx TABLETS lansoprazole 30 mg capsule,delayed 30 mg PO DAILY #90 caps 10/13/23 Unknown Rx release buspirone 7.5 mg tablet 37.5 mg PO .COMPLEX depression 10/15/23 Unknown History meclizine 25 mg tablet mg PO Q6H PRN 10/15/23 Unknown History ondansetron HCl 4 mg tablet 4 mg PO Q8H #45 tabs 10/24/23 Unknown Rx albuterol sulfate 90 mcg/actuation 2 puff inhalation Q4-6H PRN 01/23/24 Unknown Rx aerosol inhaler shortness of breath or wheezing #6.7 grams amoxicillin 875 mg-potassium 1 tab PO Q12H 10 days #20 tabs 01/23/24 Unknown Rx clavulanate 125 mg tablet benzonatate 100 mg capsule 200 mg (2 x 100 mg) PO TID PRN 01/23/24 Unknown Rx cough #30 caps prednisone 20 mg tablet 40 mg (2 x 20 mg) PO DAILY 7 days 01/31/24 Unknown Rx #14 tabs Allergy/AdvReac Type Severity Reaction Status Date / Time enalapril Allergy Severe Anaphylaxis Verified 01/31/24 11:13 Food Allergies: Uncoded Allergy Severe Anaphylaxis Verified 01/31/24 11:13 pravastatin (From Pravachol) Allergy Unknown myalgia Verified 01/31/24 11:13 fatigue CHANG Inhibitors Allergy Hives Verified 01/31/24 11:13 amlodipine (From Norvasc) Allergy Swelling Verified 01/31/24 11:13 ezetimibe (From Vytorin) Allergy Other Verified 01/31/24 11:13 losartan Allergy Anaphylaxis Verified 01/31/24 11:13 pravastatin sodium (From Allergy Other Verified 01/31/24 11:13 Pravachol) simvastatin (From Vytorin) Allergy Other Verified 01/31/24 11:13 Family History Grandmother Diabetes Mother Breast cancer Ovarian cancer Father COPD (chronic obstructive pulmonary disease) CVA (cerebral vascular accident) Heart disease Surgical History History of cardiac catheterization History of esophagogastroduodenoscopy (EGD) Hx of colonoscopy Hx of total knee arthroplasty History of lateral meniscus repair of right knee History of cholecystectomy History of hernia repair History of left knee surgery History of bilateral breast reduction surgery History of appendectomy History of hysterectomy Social History household members: spouse current occupational status: retired pets and animals: Yes pets and animals: dog(s) Smoking Status: Never smoker second hand exposure: No alcohol intake: current alcohol intake frequency: holidays/special occasions only substance use type: does not use caffeine: Yes what type of physical activity do you participate in: none ROS <DINA Verdugo - Last Filed: 01/31/24 14:00> ROS ED Constitutional Constitutional ED: Reports fatigue; Denies fever(s) ENT ENT ED: Reports nasal congestion Cardiovascular Cardiovascular: Denies chest pain Respiratory/Chest Respiratory/Chest: Reports chest congestion, cough, dyspnea on exertion and wheezing Gastrointestinal Gastrointestinal: Denies abdominal pain, nausea or vomiting Musculoskeletal Musculoskeletal: Reports myalgias Integumentary Denies rash EXAM <DINA Verdugo - Last Filed: 01/31/24 14:00> Physical Exam Const Vital Signs: 01/31/24 11:11 01/31/24 11:13 01/31/24 11:13 Temperature 98.1 F Temperature Source Temporal Pulse Rate 80 Respiratory Rate 20 H Respiratory Effort Normal Non-Labored Respiratory Depth Normal Respiratory Pattern Normal Normal Blood Pressure 149/81 H Blood Pressure Mean 103 Pulse Ox 96 Oxygen Delivery Method Room Air Room Air 01/31/24 11:41 01/31/24 13:06 Temperature 97.4 F L Temperature Source Pulse Rate 80 80 Respiratory Rate 20 H 20 H Respiratory Effort Respiratory Depth Respiratory Pattern Tachypnea Blood Pressure 145/79 H Blood Pressure Mean 101 Pulse Ox 95 Oxygen Delivery Method Positive well nourished, well developed and no apparent distress General Appearance ED: well developed HEENT Reports normocephalic and head/scalp atraumatic HEENT Narrative: Right TM obstructed by cerumen, left TM clear, posterior pharynx clear Mouth ED: Yes moist mucous membranes normal Eyes PERRL and EOMs intact bilaterally Neck full ROM and supple Neck Narrative: No meningeal signs Chest Wall inspection of chest normal Resp normal respiratory effort and clear to auscultation bilaterally Cardio regular rate and regular rhythm GI soft to palpation, non-tender, non-distended and no masses Back/Spine normal ROM and normal to inspection Extremity normal to inspection and full ROM Neuro oriented x3, CN's II-XII intact bilaterally, moves all extremities, no focal motor deficits and no sensory deficits noted Sensorium / Orientation: awake and alert Psych mental status grossly normal and thought process normal Skin no rashes or lesions noted and no wounds <Dr. Eliseo Gabriel MD - Last Filed: 01/31/24 12:52> Physical Exam Const Vital Signs: 01/31/24 11:11 01/31/24 11:13 01/31/24 11:13 Temperature 98.1 F Temperature Source Temporal Pulse Rate 80 Respiratory Rate 20 H Respiratory Effort Normal Non-Labored Respiratory Depth Normal Respiratory Pattern Normal Normal Blood Pressure 149/81 H Blood Pressure Mean 103 Pulse Ox 96 Oxygen Delivery Method Room Air Room Air 01/31/24 11:41 01/31/24 13:06 Temperature 97.4 F L Temperature Source Pulse Rate 80 80 Respiratory Rate 20 H 20 H Respiratory Effort Respiratory Depth Respiratory Pattern Tachypnea Blood Pressure 145/79 H Blood Pressure Mean 101 Pulse Ox 95 Oxygen Delivery Method MDM <DINA Verdugo - Last Filed: 01/31/24 14:00> [facility] Narrative Medical decision making narrative: Patient presenting today due to a cough, fatigue, nasal congestion she has had over the past 2 weeks. She has been on a course of Augmentin with minimal relief, she began taking Levaquin today. She does have a history of COPD. She reports feeling slightly more short of breath with exertion. She is 96% on room air, she is afebrile, she is nontoxic-appearing and in no acute distress. She reports that her PCP obtain labs a few days ago that showed, dehydration and low potassium. Labs will be obtained here and she will be given albuterol and DuoNeb breathing treatments. Chest x-ray will be obtained to assess for infiltrate and is negative. She does have a leukocytosis of 17.2, but also was on a course of prednisone. Her BMP is unremarkable, potassium is normal. I do suspect that this is likely a viral illness. She is currently taking Levaquin which she can continue. She does have breathing treatments at home to use as needed. I will place her on a course of prednisone. I encouraged that she follow-up with her PCP and she will be discharged home in stable condition. I have personally performed a face to face assessment of the patient and have reviewed the KANCHAN Note. I performed a substantive portion of the visit including all aspects of the following. My dias findings include: History is send 8-year-old female URI symptoms for 2 weeks. Initially was on Augmentin for 7 days along with steroids. Now she is currently just started Levaquin for 1 day. Having URI symptoms not improving. No viral testing. Did have a chest x-ray on January 27 which was negative. She does have a history of emphysema. Exam is [69-year-old female vital signs are stable afebrile. Pulse ox 96% on room air no hypoxia. H EENT exam unremarkable. Neck nontender no JVD. Lungs coarse breath sounds bilaterally. Wet cough. No rales or wheezing. Few scattered rhonchi. Heart regular rate and rhythm no murmur. Rate approximately 80. Chest wall ribs nontender. Abdomen soft nontender. Moving all 4 extremities. Nontender no edema no cords. Neurologically she is awake alert no focal motor deficits.] Medical Decision Making [78-year-old female URI symptoms. Rule out pneumonia versus other etiologies. She has had this now for 2 weeks viral testing will probably not be helpful.] Other additions or changes: [None] Lab Data Labs: Laboratory Results - last 24 hr 01/31/24 01/31/24 01/31/24 11:37 11:37 11:45 WBC Cancelled 17.2 H Corrected WBC Cancelled RBC Cancelled 3.97 L Hgb Cancelled 12.4 Hct Cancelled 37.9 MCV Cancelled 95.5 MCH Cancelled 31.2 MCHC Cancelled 32.7 RDW Std Deviation Cancelled 48.5 H RDW Coeff of Jona Cancelled 14.0 Plt Count Cancelled 249 MPV Cancelled 10.5 Immature Gran % (Auto) Cancelled 0.600 Neut % (Auto) Cancelled 80.4 H Lymph % (Auto) Cancelled 7.9 L [place] % (Auto) Cancelled 8.7 Eos % (Auto) Cancelled 1.9 Baso % (Auto) Cancelled 0.5 Absolute Neuts (auto) Cancelled 13.8 H Absolute Lymphs (auto) Cancelled 1.36 Total Counted Cancelled Neutrophils % (Manual) Cancelled Band Neutrophils % Cancelled Lymphocytes % (Manual) Cancelled Monocytes % (Manual) Cancelled Eosinophils % (Manual) Cancelled Basophils % (Manual) Cancelled Metamyelocytes % Cancelled Myelocytes % Cancelled Promyelocytes % Cancelled Blast Cells % Cancelled Plasma Cell % (Manual) Cancelled Other Cells % Cancelled Nucleated RBC % Cancelled 0 Nucleated RBCs/100 WBC Cancelled Differential Comment Cancelled Diff Path Review Cancelled Hypersegmented Neuts Cancelled Atypical Lymphocytes Cancelled Reactive Lymphocytes Cancelled Smudge Cells Cancelled Toxic Granulation Cancelled Toxic Vacuolation Cancelled Dohle Bodies Cancelled Magnolia Rods Cancelled Platelet Estimate Cancelled Plt Morphology Comment Cancelled RBC Morphology Cancelled Cancelled Polychromasia Cancelled Hypochromasia Cancelled Basophilic Stippling Cancelled Anisocytosis Cancelled Microcytosis Cancelled Macrocytosis Cancelled Spherocytes Cancelled Sickle Cells Cancelled Target Cells Cancelled Tear Drop Cells Cancelled Ovalocytes Cancelled Stomatocytes Cancelled Wells-Newberry Bodies Cancelled Magda Cells Cancelled Bite Cells Cancelled Crenated Cell Cancelled Acanthocytes (Spur) Cancelled Rouleaux Cancelled Schistocytes Cancelled Sodium Cancelled 136 Potassium Cancelled 4.0 Chloride Cancelled 100 Carbon Dioxide Cancelled 29.0 Anion Gap Cancelled 7 BUN Cancelled 14 Creatinine Cancelled 0.80 Estim Creat Clear Calc Cancelled Est GFR (MDRD) Af Amer Cancelled 89 Est GFR (MDRD) Non-Af Cancelled 73 BUN/Creatinine Ratio Cancelled 17.5 Glucose Cancelled 81 Calcium Cancelled 8.8 Radiography Diagnostic Testing: Clinical Impression(s) from Imaging Studies Chest X-Ray 01/31/24 12:20 IMPRESSION: No acute cardiopulmonary abnormality. No interval change. Electronically Signed: Sohail Stout MD at 13:17 EST , <Dr. Eliseo Gabriel MD - Last Filed: 01/31/24 12:52> [facility] MDM Narrative Medical decision making narrative: Patient presenting today due to a cough, fatigue, nasal congestion she has had over the past 2 weeks. She has been on a course of Augmentin with minimal relief, she began taking Levaquin today. She does have a history of COPD. She reports feeling slightly more short of breath with exertion. She is 96% on room air, she is afebrile, she is nontoxic-appearing and in no acute distress. She reports that her PCP obtain labs a few days ago that showed, dehydration and low potassium. Labs will be obtained here and she will be given albuterol and DuoNeb breathing treatments. Chest x-ray will be obtained to assess for infiltrate. I have personally performed a face to face assessment of the patient and have reviewed the KANCHAN Note. I performed a substantive portion of the visit including all aspects of the following. My dias findings include: History is send 8-year-old female URI symptoms for 2 weeks. Initially was on Augmentin for 7 days along with steroids. Now she is currently just started Levaquin for 1 day. Having URI symptoms not improving. No viral testing. Did have a chest x-ray on January 27 which was negative. She does have a history of emphysema. Exam is [69-year-old female vital signs are stable afebrile. Pulse ox 96% on room air no hypoxia. H EENT exam unremarkable. Neck nontender no JVD. Lungs coarse breath sounds bilaterally. Wet cough. No rales or wheezing. Few scattered rhonchi. Heart regular rate and rhythm no murmur. Rate approximately 80. Chest wall ribs nontender. Abdomen soft nontender. Moving all 4 extremities. Nontender no edema no cords. Neurologically she is awake alert no focal motor deficits.] Medical Decision Making [78-year-old female URI symptoms. Rule out pneumonia versus other etiologies. She has had this now for 2 weeks viral testing will probably not be helpful.] Other additions or changes: [None] History & Record Review Discussion w/independent historian: Patient Lab Data Attestation: I reviewed the patient's lab results. Lab results narrative: CBC shows white count 17.2 she has had elevated white counts before. H&H 12.4 and 37. Platelets 249. Chemistries unremarkable. Gap 7. Normal BUN and creatinine. Chest x-ray 2 views AP and lateral unremarkable. Chronic changes. No pneumonia. Labs: Laboratory Results - last 24 hr 01/31/24 01/31/24 01/31/24 11:37 11:37 11:45 WBC Cancelled 17.2 H Corrected WBC Cancelled RBC Cancelled 3.97 L Hgb Cancelled 12.4 Hct Cancelled 37.9 MCV Cancelled 95.5 MCH Cancelled 31.2 MCHC Cancelled 32.7 RDW Std Deviation Cancelled 48.5 H RDW Coeff of Jona Cancelled 14.0 Plt Count Cancelled 249 MPV Cancelled 10.5 Immature Gran % (Auto) Cancelled 0.600 Neut % (Auto) Cancelled 80.4 H Lymph % (Auto) Cancelled 7.9 L [place]illion % (Auto) Cancelled 8.7 Eos % (Auto) Cancelled 1.9 Baso % (Auto) Cancelled 0.5 Absolute Neuts (auto) Cancelled 13.8 H Absolute Lymphs (auto) Cancelled 1.36 Total Counted Cancelled Neutrophils % (Manual) Cancelled Band Neutrophils % Cancelled Lymphocytes % (Manual) Cancelled Monocytes % (Manual) Cancelled Eosinophils % (Manual) Cancelled Basophils % (Manual) Cancelled Metamyelocytes % Cancelled Myelocytes % Cancelled Promyelocytes % Cancelled Blast Cells % Cancelled Plasma Cell % (Manual) Cancelled Other Cells % Cancelled Nucleated RBC % Cancelled 0 Nucleated RBCs/100 WBC Cancelled Differential Comment Cancelled Diff Path Review Cancelled Hypersegmented Neuts Cancelled Atypical Lymphocytes Cancelled Reactive Lymphocytes Cancelled Smudge Cells Cancelled Toxic Granulation Cancelled Toxic Vacuolation Cancelled Dohle Bodies Cancelled Magnolia Rods Cancelled Platelet Estimate Cancelled Plt Morphology Comment Cancelled RBC Morphology Cancelled Cancelled Polychromasia Cancelled Hypochromasia Cancelled Basophilic Stippling Cancelled Anisocytosis Cancelled Microcytosis Cancelled Macrocytosis Cancelled Spherocytes Cancelled Sickle Cells Cancelled Target Cells Cancelled Tear Drop Cells Cancelled Ovalocytes Cancelled Stomatocytes Cancelled Wells-Newberry Bodies Cancelled [place] Cells Cancelled Bite Cells Cancelled Crenated Cell Cancelled Acanthocytes (Spur) Cancelled Rouleaux Cancelled Schistocytes Cancelled Sodium Cancelled 136 Potassium Cancelled 4.0 Chloride Cancelled 100 Carbon Dioxide Cancelled 29.0 Anion Gap Cancelled 7 BUN Cancelled 14 Creatinine Cancelled 0.80 Estim Creat Clear Calc Cancelled Est GFR (MDRD) Af Amer Cancelled 89 Est GFR (MDRD) Non-Af Cancelled 73 BUN/Creatinine Ratio Cancelled 17.5 Glucose Cancelled 81 Calcium Cancelled 8.8 Radiography Chest X-Ray - ED: 2 View, Read by ED Physician, Normal, Heart, Lungs, Mediastinum, Bony Structures and No Acute Disease Diagnostic Testing: Clinical Impression(s) from Imaging Studies Chest X-Ray 01/31/24 12:20 IMPRESSION: No acute cardiopulmonary abnormality. No interval change. Electronically Signed: Sohail Stout MD at 13:17 EST , Chest x-ray, 2 views, AP and lateral, interpreted by myself shows no acute abnormality. No pneumonia. No infiltrates. Normal cardiac silhouette. Normal lung horan. Discharge Plan Triage Chief Complaint: Cold Sx Other Complaint: Shortness of Breath ED Midlevel Provider: Mónica Salas ED Provider: Eliseo Gabriel Dx/Rx/DC Orders Clinical Impression: Bronchitis, History of COPD Instructions: ED Bronchitis with Wheezing (Adult) Prescriptions: New prednisone 20 mg tablet 40 mg PO DAILY 7 Days Qty: 14 0RF No Action duloxetine 60 mg capsule, delayed rel sprinkle 60 mg PO DAILY mometasone 50 mcg/actuation spray,non-aerosol 1 spray INTRANASAL DAILY Patient Comments: instill 2 sprays into each nostril once daily if needed cyanocobalamin (vitamin B-12) 3,000 mcg capsule 3,000 mcg PO DAILY ascorbate calcium (vitamin C) 500 mg tablet 500 mg PO DAILY coenzyme Q10 [Co Q-10] 100 mg capsule 100 mg PO DAILY bupropion HCl 150 mg tablet extended release 24 hr 150 mg PO QAM carvedilol 6.25 mg tablet 6.25 mg PO BID Rx Instructions: must administer with a meal/food clonidine HCl 0.1 mg tablet 0.1 mg PO QHS meclizine 25 mg tablet PO Q6H PRN amoxicillin-pot clavulanate 875-125 mg tablet 1 tab PO Q12H 10 Days Qty: 20 0RF benzonatate 100 mg capsule 200 mg PO TID PRN (Reason: cough) Qty: 30 0RF albuterol sulfate 90 mcg/actuation HFA aerosol inhaler 2 puff inhalation Q4-6H PRN (Reason: shortness of breath or wheezing) Qty: 6.7 0RF furosemide 40 MG tablet 40 mg PO DAILY levothyroxine 75 MCG tablet 75 mcg PO DAILY montelukast 10 MG tablet 10 mg PO DAILY cholecalciferol (vitamin D3) 1,000 UNIT tablet 5,000 unit PO DAILY buspirone 7.5 mg tablet 37.5 mg PO .COMPLEX Rx Instructions: 37.5 mg orally take 2 tablets in the morning, 2 tablets in the afternoon, and 1 tablet in the evening; zinc 50 mg Tablet 50 mg PO DAILY albuterol sulfate 90 mcg/actuation Hfa Aerosol Inhaler 1 inh INHALATION Q6H PRN (Reason: SOB) diphenhydramine HCl [Benadryl Allergy] 25 mg tablet 50 mg PO Q6H PRN (Reason: rash, allergic reac) 4 Days Qty: 32 0RF epinephrine 0.3 mg/0.3 mL auto-injector 0.3 mg IM Q10M PRN PRN (Reason: anaphylaxis) Qty: 1 1RF Rx Instructions: for 2 doses prednisone 20 mg tablet 60 mg PO DAILY Qty: 15 0RF famotidine 20 mg tablet 20 mg PO QHS Qty: 30 2RF lansoprazole 30 mg capsule,delayed release(DR/EC) 30 mg PO DAILY Qty: 90 3RF ondansetron HCl 4 mg tablet 4 mg PO Q8H Qty: 45 2RF Primary Care Provider: Radha Dent Referrals: Radha Dent DO [Primary Care Provider] - 3-5 Days Activity Restrictions/Additional Instructions: Follow-up with your PCP and return for any other concerns. Print Language: Haitian Disposition Disposition: Home, Self Care Discharge Date/Time: 01/31/24 13:07
[2024-01-31 11:41] VITALS: PULSE 80; RESP 20
[2024-01-31 12:00] LABS: Absolute Lymphocyte Count 1.36 X10^3/uL (0.83-4.51); Absolute Neutrophil Count 13.8 X10^3/uL (2.0-7.7); Basophil# 0.08 X10^3/uL; Basophil% 0.5 % (0-1); Eosinophil# 0.33 X10^3/uL; Eosinophils% 1.9 % (0-5); Hematocrit 37.9 % (37-47); Hemoglobin 12.4 g/dL (12.0-15.0); Lymphocyte # 1.36 X10^3/ul (0.83-4.51); Lymphocyte % 7.9 % (19-41); Mean Corp Hgb Conc 32.7 g/dL (32-36); Mean Corpuscular Hgb 31.2 pg (27.0-32.0); Mean Corpuscular Volume 95.5 fL (81-99); Mean Platelet Vol. 10.5 fl (6.2-12.0); Monocyte% 8.7 % (0-10); NRBC Flagged by Analyzer 0 % (0-5); Neutrophil # 13.79 X10^3/uL (2.7-7.7); Neutrophil % 80.4 % (47-70); Platelet Count 249 K/mm3 (150-450); RBC Distribution Width SD 48.5 fl (35.1-43.9); Red Blood Count 3.97 M/mm3 (4.2-5.4); White Blood Count 17.2 K/mm3 (4.4-11.0)
[2024-01-31 12:11] LABS: Anion Gap 7 (5-15); BUN 14 mg/dL (7-18); BUN/Creat Ratio 17.5 RATIO (10-20); Calcium,Total 8.8 mg/dL (8.5-10.1); Chloride 100 mmol/L (98-107); EST Glomerular Filtration Rate 73 mL/min (>60); Est Glom Filt Rate - Afr Amer 89 mL/min (>60); Glucose 81 mg/dL (74-106); Sodium Level 136 mmol/L (136-145)
--- NOTE | 2024-01-31 12:20 | RAD_ITS ---
EXAM: XR CHEST, 2 VIEWS CLINICAL INDICATION: cough, SOB TECHNIQUE: Frontal and lateral views of the chest. COMPARISON: CT chest 12/28/2015, XR Chest dated 01/28/2024 FINDINGS: LUNGS AND PLEURAL SPACES: Stable 10 mm right lower lobe pulmonary nodule likely representing a granuloma. Nodule was present on prior CT chest 2015. Lungs are otherwise clear. No pleural effusion or pneumothorax. HEART: Normal heart size. MEDIASTINUM: No mediastinal or hilar mass. BONES/JOINTS: Cephalic drift of both humeral heads consistent with chronic rotator cuff deformity. Old left-sided rib fractures again noted. RAD/Chest PA and Lateral IMPRESSION: No acute cardiopulmonary abnormality. No interval change. Electronically Signed: Sohail Stout MD at 13:17 EST ,
[2024-01-31 13:06] VITALS: BP 145/79; PULSE 80; RESP 20; TEMP 36.3; O2SAT 95
== END 2024-01-31 13:07 | disposition home or self-care (01) ==
PROVIDERS: Emergency Provider Emergency Medicine; PCP Internal Medicine; Referring Provider Emergency Medicine; Visit Provider Emergency Medicine
DX: J40 Bronchitis, not specified as acute or chronic (principal); J43.9 Emphysema, unspecified; I25.10 Atherosclerotic heart disease of native coronary artery without angina pectoris; I10 Essential (primary) hypertension; E78.2 Mixed hyperlipidemia; K21.9 Gastro-esophageal reflux disease without esophagitis
CPT/HCPCS: 71046; 80048; 85025; 94640; 99284; A4216

== ENCOUNTER → 2024-08-26 | Outpatient (CLI) | payer MEDICARE, SELFPAY ==
--- NOTE | 2024-08-26 15:12 | BD_ITS ---
PROCEDURE: DEXA BONE DENSITY STUDY 08/26/2024 REASON FOR EXAM: F, age 79 y/o . Postmenopausal. TECHNIQUE: DEXA BONE DENSITY STUDY COMPARISON: Prior study dated June 20, 2020. FINDINGS: BMD and T-SCORES Lumbar spine: 1.090 g/cm2, T-score 0.4 Levels: L1 through L4 Change from prior: Improvement of 0.3%. Left femoral neck: 0.568 g/cm2, T-score -2.5 Femoral neck comparison data not recommended for monitoring change. Left total hip: 0.815 g/cm2, T-score -1.0 Change from prior: Loss of 5.1%. Right femoral neck: 0.570 g/cm2, T-score -2.5 Femoral neck comparison data not recommended for monitoring change. Right total hip: 0.783 g/cm2, T-score -1.3 Change from prior: Improvement of 0.1%. The World Health Organization has defined the following categories based on bone density: Normal bone density: T-score equal to or greater than -1.0 Osteopenia: T-score between -1.0 and -2.5 Osteoporosis: T-score equal to or less than -2.5 The patient does meet the pharmacological treatment recommendations for prevention of osteoporosis. BD/Dexa Bone Density Study IMPRESSION: OSTEOPENIA. Recommend follow-up as clinically warranted. Reading Location: [id number]
--- NOTE | 2024-08-26 16:00 | BI_ITS ---
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 History of prior bilateral breast reduction surgery. TECHNIQUE: SCRN MAMM (CAD)W/BRET BILAT COMPARISON: Prior exam(s) dated October 10, 2022.. FINDINGS: TISSUE DENSITY: The breasts are almost entirely fatty. Bilateral Breast Mammographic Findings: No significant masses, calcifications or other abnormalities are identified. No suspicious masses, areas of developing architectural distortion, or suspicious calcifications. There has been no significant interval change. BI/SCRN MAMM (CAD)W/BRET BILAT IMPRESSION: Stable examination. OVERALL FINAL ASSESSMENT BI-RADS 1: NEGATIVE. RECOMMEND ANNUAL MAMMOGRAPHIC SCREENING. RECOMMENDATION: Routine annual follow-up in 1 Year A letter with findings and recommendations will be mailed to the patient. Reading Location: [id number]
== END | disposition home or self-care (01) ==
LOC: OPBD 15:11
PROVIDERS: PCP Internal Medicine; Referring Provider Internal Medicine; Visit Provider Internal Medicine
DX: Z12.31 Encounter for screening mammogram for malignant neoplasm of breast (principal); Z78.0 Asymptomatic menopausal state
CPT/HCPCS: 77063; 77067; 77080

== ENCOUNTER → 2024-11-12 | Outpatient (CLI) | payer MEDICARE, SELFPAY ==
--- NOTE | 2024-11-12 15:24 | RAD_ITS ---
PROCEDURE: HAND MIN 3 VIEWS 11/12/2024 REASON FOR EXAM: HAND INJURY fell. Metacarpal hand pain. TECHNIQUE: Procedure Code: [facility] Modality: DX Procedure: HAND MIN 3 VIEWS Laterality: Left COMPARISON: None. FINDINGS: BONES: Acute fracture in the base of the 5th metacarpal. JOINTS: No dislocation. The joint spaces are preserved. SOFT TISSUES: Diffusely edematous soft tissues in the medial hand. RAD/Hand Min 3 Views IMPRESSION: Acute 5th metacarpal base fracture. Reading Location: [id number]
--- NOTE | 2024-11-12 15:24 | RAD_ITS ---
PROCEDURE: KNEE 3 VIEWS 11/12/2024 REASON FOR EXAM: KNEE INJURY TECHNIQUE: Procedure Code: RADPAT Modality: DX Procedure: KNEE 3 VIEWS Laterality: Left COMPARISON: None available. FINDINGS: Bones: No fracture. No suspicious bone lesion. Joints: Total knee arthroplasty in satisfactory alignment. Effusion: Small joint effusion. Soft tissues: Soft tissues are unremarkable. RAD/Knee 3 Views IMPRESSION: 1. Total left knee arthroplasty appears intact. 2. Small left knee joint effusion. 3. No acute fractures or dislocations. Reading [facility]
== END | disposition home or self-care (01) ==
LOC: MTRAD 15:24
PROVIDERS: PCP Internal Medicine; Referring Provider Physician Assistant Surgical; Visit Provider Physician Assistant Surgical
DX: S69.92XA Unspecified injury of left wrist, hand and finger(s), initial encounter (principal); S89.92XA Unspecified injury of left lower leg, initial encounter; X58.XXXA Exposure to other specified factors, initial encounter
CPT/HCPCS: 73130; 73562

== ENCOUNTER → 2025-01-18 | Outpatient (CLI) | payer MEDICARE, SELFPAY ==
[2025-01-18 17:38] LABS: Hematocrit 36.8 % (37-47); Hemoglobin 12.0 g/dL (12.0-15.0); Immature Granulocytes Count 0.030 X10^3/uL (0.0-0.0); Mean Corp Hgb Conc 32.6 g/dL (32-36); Mean Corpuscular Volume 95.3 fL (81-99); Mean Platelet Vol. 10.9 fl (6.2-12.0); NRBC Flagged by Analyzer 0 % (0-5); Platelet Count 298 K/mm3 (150-450); RBC Distribution Width CV 13.9 % (11.6-14.6); RBC Distribution Width SD 47.9 fl (35.1-43.9); Red Blood Count 3.86 M/mm3 (4.2-5.4); White Blood Count 7.6 K/mm3 (4.4-11.0)
[2025-01-18 18:11] LABS: AST(SGOT) 14 U/L (<=31); Alanine Aminotransfer ALT/SGPT 12 U/L (<=34); Albumin, Serum 4.1 g/dL (3.4-4.8); Alkaline Phosphatase 130 U/L (35-104); Anion Gap 13 (5-15); BUN 13 mg/dL (4-19); BUN/Creat Ratio 15.3 RATIO (10-20); Calcium,Total 9.3 mg/dL (7.6-11.0); Carbon Dioxide 27.8 mmol/L (21.0-32.0); Chloride 99 mmol/L (98-108); Globulin 3.2 g/dL (2.2-4.2); Glucose 80 mg/dL (70-99); Potassium 3.5 mmol/L (3.3-5.1); Vitamin B12 1938 pg/mL (180-914); Vitamin D,25 Hydroxy 86.0 ng/mL (30-100)
== END | disposition home or self-care (01) ==
LOC: CIMLAB 14:54
PROVIDERS: Nurse Practitioner Family; PCP Internal Medicine; Referring Provider Internal Medicine; Visit Provider Internal Medicine
DX: I10 Essential (primary) hypertension (principal); E03.9 Hypothyroidism, unspecified; E55.9 Vitamin D deficiency, unspecified
CPT/HCPCS: 36415; 80053; 82306; 82607; 84443; 85025

== ENCOUNTER → 2025-01-26 | Outpatient (CLI) | payer MEDICARE, SELFPAY ==
--- NOTE | 2025-01-26 14:01 | CDU_ITS ---
Reason For Study Reason For Study: CArotid stenosis Rt. Velocities/BP Lt. Velocities/BP Prox CCA 71.1/14.5 cm/sec. Prox CCA 66.3/16.8 cm/sec. Mid CCA 57.9/10.7 cm/sec. Mid CCA 52/10.2 cm/sec. Dist CCA 48.5/11.6 cm/sec. Dist CCA 56.4/14.6 cm/sec. Prox ICA 40/11.6 cm/sec. Prox ICA 47.6/13.5 cm/sec. Mid ICA 42.2/14.2 cm/sec. Mid ICA 45.1/14.1 cm/sec. Dist ICA 64.5/20.1 cm/sec. Dist ICA 74.4/22.1 cm/sec. Rt. ICA/CCA = 1.11. Lt. ICA/CCA = 1.43. Prox ECA 58.9/10.7 cm/sec. Prox ECA 56.4/9.1 cm/sec. Rt. Vert. 35.5/11.3 cm/sec. Lt. Vert. 44.8/12.5 cm/sec. Right Extracranial There is intimal thickening but no significant atherosclerotic plaque noted in the right common carotid artery. There is intimal thickening but no significant atherosclerotic plaque noted in the right internal carotid artery. There is intimal thickening but no significant atherosclerotic plaque noted in the right external carotid artery. Antegrade flow is noted in the right vertebral artery. Left Extracranial There is intimal thickening but no significant atherosclerotic plaque noted in the left common carotid artery. There is intimal thickening but no significant atherosclerotic plaque noted in the left internal carotid artery. There is intimal thickening but no significant atherosclerotic plaque noted in the left external carotid artery. Antegrade flow is noted in the left vertebral artery. Procedure Carotid Duplex [id number]. This is a Carotid Duplex examination using B-mode, color flow and specral Doppler. Exam performed in department. VL/Carotid Duplex Ultrasound Interpretation Summary No significant atherosclerotic plaque or stenosis noted in the internal carotid arteries bilaterally. Flow within the vertebral arteries is antegrade bilaterally. Ordering Physician: Radha Dent Referring Physician: Radha Dent Performed By: Shauna Arreguin RVT
== END | disposition home or self-care (01) ==
LOC: CVS 13:58
PROVIDERS: PCP Internal Medicine; Referring Provider Internal Medicine; Visit Provider Internal Medicine
DX: I65.23 Occlusion and stenosis of bilateral carotid arteries (principal)
CPT/HCPCS: 93880